=== PATIENT | male | born 1940 | race Caucasian/White ===

== ENCOUNTER 2022-07-11 06:51 | Emergency (ER) | payer MEDICARE, SELFPAY ==
[2022-07-11] VITALS (21 sets, daily range): BP systolic 145–207; BP diastolic 70–135; PULSE 61–81; RESP 13–24; TEMP 36.6; O2SAT 88–100; BMI 25.1
--- NOTE | 2022-07-11 07:15 | ED_ITS ---
HPI - Head Injury General Chief complaint: Head Injury Stated complaint: FALL, LEFT ELBOW INJURY Time Seen by Provider: 07/11/22 07:15 Source: patient and caregiver Mode of arrival: Wheelchair Limitations: no limitations History of Present Illness HPI Narrative: Patient brought in By daughter to the emergency department With complaint of fall. Daughter states the patient got up last night to urinate and had a cramp in the left thigh to fall. He hit his head did not have loss of consciousness. He was weak so she helped him get up. Complained of pain to the left elbow.The patient's takes Plavix. He complains of headache And right base of the skull neck pain. Denies any visual disturbance nausea, vomiting. His very hard of hearing. Denies any syncope or seizure. Denies any neck pain, paresthesias, or weakness. He is able to move his extremities. She noted some swelling to the left elbow and was concerned about that too. Patient denies any chest pain, shortness of breath. Denies any nausea, vomiting, diarrhea, constipation, abdominal pain. He denies any leg pain or hip pain and he was able to walk into the emergency department. Related Data Home Medications Medication Instructions Recorded Confirmed atorvastatin 80 mg tablet 80 mg PO QDAY 07/11/22 07/11/22 clopidogrel 75 mg tablet 75 mg PO QDAY 07/11/22 07/11/22 lisinopril 20 mg tablet 20 mg PO QDAY 07/11/22 07/11/22 metoprolol succinate 25 mg 25 mg PO Q12H 07/11/22 07/11/22 tablet,extended release 24 hr Allergies Allergy/AdvReac Type Severity Reaction Status Date / Time No Known Drug Allergies Allergy Verified 07/11/22 07:07 Review of Systems ROS Narrative ROS: Unless otherwise stated in this report the patient's positive and negative responses for review of systems for constitutional, eyes, ENT, cardiovascular, respiratory, gastrointestinal, neurological, , musculoskeletal and integument systems and related systems to the presenting problem are either stated in the history of present illness or were not pertinent or were negative for the symptoms and/or complaints related to the presenting medical problem. [facility] Medical History (Updated 07/11/22 @ 08:49 by Samantha Lowe MD) Exam Narrative Exam Narrative: Nurses notes and vital signs reviewed and patient is not hypoxic. General: Elderly, frail, chronically ill, nontoxic, and in no apparent distress. Skin: Warm, dry, no pallor noted. No Rash Head: Normocephalic, Left frontal contusion and abrasion noted. There are no step-offs. Neck: Supple, C2-C3 tenderness at midline, no Step-offs. Eye: Pupils are equal, round and EOMI. No scleral icterus. Ears, Nose, Mouth, and Throat: TM clear, no hemotympanum, bilateral Cerumen impaction. no posterior oropharynx erythema or nasal mucosal hypertrophy, uvula is mid-line Oral mucosa is moist Cardiovascular: Regular Rate and Rhythm without murmur, gallop or rub. Respiratory: No accessory muscle use or respiratory distress. Lungs are clear to auscultation, no wheezing, rales or rhonchi Chest Wall: no tenderness Back: No midline thoracic or lumbar vertebral tenderness. No CVA tenderness Musculoskeletal: Left elbow with golf ball size bursitis. There is an abrasion medially to it and an abrasion to the distal forearm. Radial pulses +2, capillary refill is brisk. Normal sensation to the thumb, middle finger and pinky.normal ROM, no calf or popliteal tenderness, no lower extremity edema/swelling GI: Abdomen is soft, non-distended. Normal bowel sounds. No tenderness to palpation. No rebound, guarding, or rigidity noted. Neurological: A&O x4. No cranial nerve dysfunction observed. No truncal ataxia. Moves all extremities. Sensation intact. Psychiatric: Cooperative. Constitutional Vital Signs - 24 hr 07/11/22 07:01 07/11/22 07:12 07/11/22 08:28 Temperature 97.9 F Pulse Rate Pulse Rate [Monitor] 72 Respiratory Rate 18 Blood Pressure Blood Pressure [Left Arm] 166/105 H Pulse Oximetry 98 98 99 Oxygen Delivery Method Room Air Room Air Room Air 07/11/22 07:10 07/11/22 07:16 07/11/22 08:00 Temperature Pulse Rate 69 61 61 Pulse Rate [Monitor] Respiratory Rate 18 22 15 Blood Pressure 157/97 H 157/70 H 181/90 H Blood Pressure [Left Arm] Pulse Oximetry 100 99 99 Oxygen Delivery Method 07/11/22 08:30 07/11/22 08:45 07/11/22 09:02 Temperature Pulse Rate 64 68 64 Pulse Rate [Monitor] Respiratory Rate 16 15 13 Blood Pressure 168/94 H 150/116 H Blood Pressure [Left Arm] Pulse Oximetry 99 98 99 Oxygen Delivery Method 07/11/22 09:10 07/11/22 09:15 07/11/22 09:16 Temperature Pulse Rate 63 70 74 Pulse Rate [Monitor] Respiratory Rate 20 22 15 Blood Pressure 207/104 H Blood Pressure [Left Arm] Pulse Oximetry 100 88 L 93 L Oxygen Delivery Method 07/11/22 09:31 07/11/22 09:47 07/11/22 09:50 Temperature Pulse Rate 74 76 77 Pulse Rate [Monitor] Respiratory Rate 18 22 23 Blood Pressure 161/110 H Blood Pressure [Left Arm] Pulse Oximetry Oxygen Delivery Method 07/11/22 10:00 07/11/22 10:01 07/11/22 10:17 Temperature Pulse Rate 73 74 73 Pulse Rate [Monitor] Respiratory Rate 20 17 21 Blood Pressure 169/135 H Blood Pressure [Left Arm] Pulse Oximetry Oxygen Delivery Method 07/11/22 10:20 07/11/22 10:30 07/11/22 10:31 Temperature Pulse Rate 81 74 81 Pulse Rate [Monitor] Respiratory Rate 16 24 23 Blood Pressure 145/116 H Blood Pressure [Left Arm] Pulse Oximetry Oxygen Delivery Method Course Vital Signs Vital signs: Vital Signs Temperature 97.9 F 07/11/22 07:01 Pulse Rate 72 07/11/22 07:01 Respiratory Rate 18 07/11/22 07:01 Blood Pressure 166/105 H 07/11/22 07:01 Pulse Oximetry 98 07/11/22 07:01 Oxygen Delivery Method Room Air 07/11/22 07:01 Temperature 97.9 F 07/11/22 07:01 Pulse Rate 81 07/11/22 10:31 Respiratory Rate 23 07/11/22 10:31 Blood Pressure 145/116 H 07/11/22 10:31 Pulse Oximetry 93 L 07/11/22 09:16 Oxygen Delivery Method Room Air 07/11/22 08:28 MDM - Head Injury MDM Narrative Medical decision making narrative: pt was placed on a cervical collar. Patient was discussed with radiologist who advised the patient has an anterior arch C1 fracture nondisplaced. CT scan of the brain . Patient was discussed with Dr. Dong the neurosurgeon leadership development consultant her [facility] who advised he can see the patient as consult. The patient was discussed with Dr. Root who has accepted the patient in transfer. Labs were done and reviewed. Differential Diagnosis Differential diagnosis: Likely concussion without loss of consciousness, epidural hematoma, closed head injury and subdural hematoma Medical Records Attestation: I reviewed the patient's medical records. Lab Data Attestation: I reviewed the patient's lab results. Labs: Lab Results 07/11/22 07/11/22 Range/Units 08:54 09:25 WBC 4.7 (4.0-11.0) 10^3/uL RBC 3.87 L (4.70-6.10) 10^6/uL Hgb 12.2 L (14.0-18.0) g/dL Hct 35.4 L (42.0-54.0) % MCV 91.5 (80.0-94.0) fL MCH 31.5 (25.9-34.0) pg MCHC 34.5 (29.9-35.2) g/dL RDW 14.6 (11.0-15.0) % Plt Count 80 L (150-450) 10^3/uL MPV 10.5 (9.5-13.5) fL Neut % (Auto) 70.8 (43.0-75.0) % Lymph % (Auto) 16.3 L (20.5-60.0) % [place] % (Auto) 10.6 (1.7-12.0) % Eos % (Auto) 1.5 (0.9-7.0) % Baso % (Auto) 0.4 (0.2-2.0) % Neut # (Auto) 3.3 (1.4-6.5) 10^3/uL Lymph # (Auto) 0.8 L (1.2-3.8) 10^3/uL [place] # (Auto) 0.5 (0.3-0.8) 10^3/uL Eos # (Auto) 0.1 (0.0-0.7) 10^3/uL Baso # (Auto) 0.0 (0.0-0.1) 10^3/uL PT 12.1 H (9.0-11.6) sec INR 1.15 Sodium 126 L (136-145) mmol/L Potassium 4.3 (3.5-5.1) mmol/L Chloride 92 L (98-107) mmol/L Carbon Dioxide 24.8 (21.0-32.0) mmol/L Anion Gap 13.5 BUN 11.0 (7.0-18.0) mg/dL Creatinine 0.78 (0.70-1.30) mg/dL Est GFR ( Amer) >60 (>=60) Est GFR (Non-Af Amer) >60 (>=60) BUN/Creatinine Ratio 14.1 Glucose 89 (74-106) mg/dL Calcium 8.5 (8.5-10.1) mg/dL Total Bilirubin 1.2 H (0.2-1.0) mg/dL AST 29 (15-37) U/L ALT 36 (16-63) U/L Alkaline Phosphatase 51 (46-116) U/L Total Protein 7.0 (6.4-8.2) g/dL Albumin 3.9 (3.4-5.0) g/dL Globulin 3.1 g/dL Albumin/Globulin Ratio 1.3 Urine Color Lt. yellow (YELLOW) Urine Clarity Clear (CLEAR) Urine pH 7.0 (5.0-9.0) Ur Specific [place] 1.010 (1.005-1.025) Urine Protein Negative (NEG/TRACE) mg/dL Urine Glucose (UA) Negative (NEGATIVE) mg/dL Urine Ketones Negative (NEGATIVE) mg/dL Urine Occult Blood Negative (NEGATIVE) Urine Nitrite Negative (NEGATIVE) Urine Bilirubin Negative (NEGATIVE) Urine Urobilinogen 0.2 (0.2-1.0) EU/dL Ur Leukocyte Esterase Negative (NEGATIVE) ECG Data Attestation: I personally reviewed and interpreted this ECG as follows: Critical Care Time Critical Care Time Attestation: Critical Care Time: 30 minutes, critical care time is separate from any procedures that are performed. The following was considered in the determination of critical care but not limited to the level medical decision-making, intensive cardiac and/or respiratory monitor, frequent vital sign monitoring, evaluation of laboratory studies, evaluation of a radiographic studies, oxygen monitoring and constant monitoring. Discharge Plan Discharge Chief Complaint: Head Injury Clinical Impression: Closed head injury, Bursitis of left elbow, C1 cervical fracture, Abrasion of elbow, left Patient Disposition: [facility] Time of Disposition Decision: 08:48 Discharge Location: [facility] Condition: Good Mode of Transportation: EMS
--- NOTE | 2022-07-11 07:20 | CT_ITS ---
The [address] [address] Patient Name: JOVANNY EVANS MRN: [id number] date: 1940 Sex: M Assigned Patient Location: ER Current Patient Location: ER Accession/Order Number: [id number] Exam Date: 07/11/2022 07:30 Report Date: 07/11/2022 08:27 At the request of: NIALL LOWE Procedure: CT cervical spine wo con EXAMINATION: CT cervical spine wo con HISTORY: PAIN ; patient fell striking head, neck pain COMPARISON: No relevant comparison available. TECHNIQUE: Axial, Coronal, and Sagittal images were created without IV contrast. Dose reduction techniques were achieved by using automated exposure control and/or adjustment of mA and/or kV according to patient size and/or use of iterative reconstruction technique. FINDINGS: VERTEBRAL BODIES: Nondisplaced fracture of anterior arch of C1 in 2 places. Mild compression fractures and advanced degenerative endplate changes of C4, C5, and C6 which appear to be chronic. FACET JOINTS: Multilevel marked degenerative facet arthropathy resulting in bone encroachment on the central canal and foramen. No disruption or abnormal widening. DISCS: Complete loss of disc space at C4-5 and C5-6, lung with large posterior disc-osteophyte complexes causing marked central canal and foramen narrowing. CENTRAL CANAL: Suspect mild hemorrhage deep to the longitudinal ligament posterior to the C1-2 junction. No central canal narrowing or intrathecal hemorrhage. PARASPINAL AREA: No visible mass. IMPRESSION: 1. Nondisplaced fractures of the anterior arch of C1. 2. 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 Findings discussed with Dr. Lowe in ED via telephone prior to dictation. Electronically authenticated by: JOSSIE WALKER Date: 07/11/2022 08:27
--- NOTE | 2022-07-11 07:20 | CT_ITS ---
The [address] [address] Patient Name: JOVANNY EVANS MRN: [id number] date: 1940 Sex: M Assigned Patient Location: ER Current Patient Location: ER Accession/Order Number: [id number] Exam Date: 07/11/2022 07:30 Report Date: 07/11/2022 08:13 At the request of: NIALL DAVIS Procedure: CT head/brain wo con EXAMINATION: CT head/brain wo con HISTORY: PAIN COMPARISON: No relevant comparison available. TECHNIQUE: Axial CT images were obtained without IV contrast. Dose reduction techniques were achieved by using automated exposure control and/or adjustment of mA and/or kV according to patient size and/or use of iterative reconstruction technique. FINDINGS: BRAIN: No edema, hemorrhage, mass, acute infarction, or inappropriate atrophy. CSF SPACES: No hydrocephalus, subarachnoid hemorrhage, or mass. Appropriate for age. SKULL: No fracture, mass, or other significant visible lesion. SINUSES: No significant mucosal thickening or fluid on the limited views. ORBITS: No appreciable abnormality on the limited views. OTHER: Scalp hematoma overlying left parietal bone 0.8 cm in thickness by 8.0 x 8.0 cm. IMPRESSION: 1. No intracranial hemorrhage or appreciable acute abnormality. 2. Age consistent chronic changes. 3. Large scalp hematoma overlying left parietal bone. No fracture of the calvarium. Electronically authenticated by: JOSSIE WALKER Date: 07/11/2022 08:13
--- NOTE | 2022-07-11 07:23 | XR_ITS ---
The [address] [address] Patient Name: JOVANNY EVANS MRN: [id number] date: 1940 Sex: M Assigned Patient Location: ER Current Patient Location: ER Accession/Order Number: [id number] Exam Date: 07/11/2022 07:40 Report Date: 07/11/2022 08:30 At the request of: NIALL DAVIS Procedure: XR forearm LT 2V PROCEDURE: XR forearm LT 2V HISTORY: PAIN ; elbow pain after falling COMPARISON: None. FINDINGS: BONES:No acute fracture or dislocation. Degenerative change of the wrist and elbow joints. SOFT TISSUES:Prominent soft tissue swelling posterior to the olecranon suggestive of bursitis. Degenerative enthesopathic spurring at the flexor and extensor tendons insertion into the humerus. EFFUSION:None visible. OTHER: Negative. IMPRESSION: 1. No acute bone abnormality. 2. Suspect olecranon bursitis. Electronically authenticated by: JOSSIE WALKER Date: 07/11/2022 08:30
--- NOTE | 2022-07-11 08:26 | PC.NURSE ---
pt placed in ccollar
--- NOTE | 2022-07-11 08:36 | ECG_ITS ---
The [facility] Test Date: 2022-07-11 Pat Name: Jose Enrique Woodward Department: Room: - Gender: Male Animal Warden: : 1940 Requested By: [id number] Order Number: [id number] Reading MD: JERMAN QUINN Measurements Intervals [place] Rate: 66 P: -[id number] NM: -[id number] QRS: 79 QRSD: 92 T: 22 QT: 414 QTc: 428 Interpretive Statements 1250 Atrial flutter 9140 abnormal rhythm ECG No previous ECG available for comparison Electronically Signed On 07-12-2022 6:53:41 EDT by JERMAN QUINN
[2022-07-11] MEDS: 0.9 % SODIUM CHLORIDE 1,000 ML 100 ML IV (08:46)
[2022-07-11 09:08] LABS: Basophils Percent Auto 0.4 % (0.2-2.0); Eosinophils Absolute Auto 0.1 10^3/uL (0.0-0.7); Eosinophils Percent Auto 1.5 % (0.9-7.0); Hematocrit 35.4 % (42.0-54.0); Hemoglobin 12.2 g/dL (14.0-18.0); Immature Granulocytes Abs Auto 0.02 10^3/uL (0.00-0.03); Immature Granulocytes Pct Auto 0.4 % (0.0-0.5); Lymphocytes Absolute Auto 0.8 10^3/uL (1.2-3.8); Lymphocytes Percent Auto 16.3 % (20.5-60.0); Mean Corpuscular HGB Conc 34.5 g/dL (29.9-35.2); Mean Corpuscular Hemoglobin 31.5 pg (25.9-34.0); Mean Corpuscular Volume 91.5 fL (80.0-94.0); Mean Platelet Volume 10.5 fL (9.5-13.5); Monocytes Absolute Auto 0.5 10^3/uL (0.3-0.8); Monocytes Percent Auto 10.6 % (1.7-12.0); Neutrophils Absolute Auto 3.3 10^3/uL (1.4-6.5); Neutrophils Percent Auto 70.8 % (43.0-75.0); Platelet Count 80 10^3/uL (150-450); Red Blood Count 3.87 10^6/uL (4.70-6.10); Red Cell Distribution Width 14.6 % (11.0-15.0); White Blood Count 4.7 10^3/uL (4.0-11.0)
[2022-07-11 09:20] LABS: Alanine Aminotransferase 36 U/L (16-63); Albumin Globulin Ratio 1.3; Albumin Level 3.9 g/dL (3.4-5.0); Alkaline Phosphatase 51 U/L (46-116); Anion Gap 13.5; Aspartate Amino Transferase 29 U/L (15-37); BUN Creatinine Ratio 14.1; Bilirubin Total 1.2 mg/dL (0.2-1.0); Calcium 8.5 mg/dL (8.5-10.1); Carbon Dioxide 24.8 mmol/L (21.0-32.0); Chloride 92 mmol/L (98-107); Estimated GFR (African America >60 (>=60); Estimated GFR (Non-African Ame >60 (>=60); Globulin 3.1 g/dL; Glucose 89 mg/dL (74-106); Potassium 4.3 mmol/L (3.5-5.1); Sodium 126 mmol/L (136-145)
[2022-07-11 09:37] LABS: INR 1.15; Prothrombin Time 12.1 sec (9.0-11.6)
[2022-07-11 09:44] LABS: Bilirubin Urine NEGATIVE (NEGATIVE); Blood Urine NEGATIVE (NEGATIVE); Clarity Urine CLEAR (CLEAR); Color Urine LT. YELLOW (YELLOW); Glucose Urine UA NEGATIVE (NEGATIVE); Ketones Urine NEGATIVE (NEGATIVE); Leukocyte Esterase Urine NEGATIVE (NEGATIVE); Nitrite Urine NEGATIVE (NEGATIVE); Protein Urine NEGATIVE (NEG/TRACE); Urobilinogen Urine 0.2 EU/dL (0.2-1.0)
--- NOTE | 2022-07-11 10:04 | PC.NURSE ---
report called [id number] [place] [id number]
--- NOTE | 2022-07-11 10:12 | XR_ITS ---
The [address] [address] Patient Name: JOVANNY EVANS MRN: [id number] date: 1940 Sex: M Assigned Patient Location: ER Current Patient Location: ER Accession/Order Number: [id number] Exam Date: 07/11/2022 10:23 Report Date: 07/11/2022 10:47 At the request of: NIALL DAVIS Procedure: XR chest 1V EXAMINATION: XR chest 1V HISTORY: preop , shortness breath COMPARISON: XR chest 05/19/2020 FINDINGS: LUNGS: Mild haziness throughout the underexpanded lungs, slightly greater within lateral right lung base. VASCULATURE: No increased pulmonary vasculature. PLEURA: No pneumothorax, effusion, or pleural thickening. CARDIAC: No cardiomegaly or cardiac silhouette abnormality. MEDIASTINUM: Prior sternotomy. No abnormal widening. BONES: No fracture or visible bone lesion. OTHER: Negative. IMPRESSION: 1. Mild bilateral atelectasis versus infiltrates; not significantly changed. Electronically authenticated by: JOSSIE WALKER Date: 07/11/2022 10:47
--- NOTE | 2022-07-11 10:22 | PC.NURSE ---
chest xray completed
--- NOTE | 2022-07-11 10:52 | PC.NURSE ---
report given to [facility] and [place] [facility] [place] [id number] ccollar remained intact
== END 2022-07-11 10:54 | disposition short-term general hospital (02) ==
PROVIDERS: Emergency Provider Emergency Medicine; PCP Internal Medicine
DX: S12.000A Unspecified displaced fracture of first cervical vertebra, initial encounter for closed fracture (principal); S09.8XXA Other specified injuries of head, initial encounter; M70.32 Other bursitis of elbow, left elbow; S50.312A Abrasion of left elbow, initial encounter; W19.XXXA Unspecified fall, initial encounter; Z79.02 Long term (current) use of antithrombotics/antiplatelets; Z79.899 Other long term (current) drug therapy
CPT/HCPCS: 36415; 70450; 71045; 72125; 73090; 80053; 81003; 85025; 85610; 93005; 99285

== ENCOUNTER 2022-07-16 17:45 | Inpatient (IN) | payer MEDICARE, SELFPAY ==
[2022-07-16] VITALS (13 sets, daily range): BP systolic 99–162; BP diastolic 57–92; PULSE 77–103; RESP 14–38; TEMP 37.4–38.2; O2SAT 86–99; BMI 20.4
--- NOTE | 2022-07-16 18:18 | ECG_ITS ---
The [facility] Test Date: 2022-07-16 Pat Name: Jose Enrique Woodward Department: Room: [facility] Gender: Male Research Administrator: : 1940 Requested By: [id number] Order Number: [id number] Reading MD: MAGI STOCK Measurements Intervals [place] Rate: 80 P: -[id number] HI: -[id number] QRS: 79 QRSD: 90 T: 25 QT: 378 QTc: 414 Interpretive Statements ATRIAL FLUTTER, A-RATE [address] depression, probably digitalis effect 9150 abnormal ECG Compared to ECG 07/11/2022 07:08:06 ST (T wave) deviation now present Atrial flutter no longer present Electronically Signed On 07-18-2022 6:22:08 EDT by MAGI STOCK
--- NOTE | 2022-07-16 18:18 | XR_ITS ---
[place] [id number] Patient Name: JOVANNY EVANS MRN: [id number] date: 1940 Sex: M Assigned Patient Location: ED.MAIN Current Patient Location: ER Accession/Order Number: [id number] Exam Date: 07/16/2022 19:10 Report Date: 07/16/2022 20:02 At the request of: NIALL DAVIS Procedure: XR chest 1V EXAM: XR chest 1V HISTORY: chest pain COMPARISON: 07/11/2022 TECHNIQUE: Frontal view of the chest. FINDINGS: The right lung apex is obscured by the patient's chin. Mild diffuse bilateral interstitial prominence which may represent edema and/or infiltrates. No large pleural effusions. Cardiomegaly. Median sternotomy. Thoracic spine spondylosis. IMPRESSION: Mild bilateral interstitial prominence which may represent edema or infiltrates. Cardiomegaly. Electronically authenticated by: HELADIO LINARES Date: 07/16/2022 20:02
--- NOTE | 2022-07-16 18:20 | ED.CHESTPAI1 ---
Documented by User: Samantha Lowe MD 07/17/22 12:02 HPI - Chest Pain General Chief Complaint: Chest Pain Stated Complaint: CHEST PAIN Time Seen by Provider: 07/16/22 17:52 Source: family Source comment: daughter Mode of arrival: Wheelchair Limitations: altered mental status Limitations comment: INCREASED CONFUSION AND [id number] FOLLOWING DIRECTION History of Present Illness HPI narrative: Patient brought into the emergency department with a complaint of confusion. Patient fell Monday was seen in the emergency department and found to have a C1 fracture. He was transferred to [facility]. While he was at [facility] he was also hyponatremic. Patient was discharged from [facility] yesterday family states ever since he was in the hospital he is mentation has not been what he normally was however he is becoming more confused as the day goes on today. He was weak and he was not able to get out of the swing where he was living at. He has not had any trauma. He complained to the family that he was having right-sided chest pain. They found him to have a fever so they brought him in to be checked for a urinary tract infection or pneumonia.The patient has not been given anything other than Tylenol for pain at home. Family states they have not filled in the [place] because it makes him nauseated. He states he has not been complaining of any neck pain. Patient has a c-collar. Related Data Home Medications Medication Instructions Recorded Confirmed atorvastatin 80 mg tablet 80 mg PO QDAY 07/11/22 07/16/22 clopidogrel 75 mg tablet 75 mg PO QDAY 07/11/22 07/16/22 metoprolol succinate 25 mg 25 mg PO Q12H 07/11/22 07/16/22 tablet,extended release 24 hr acetaminophen 325 mg tablet (Aphen) 650 mg PO Q6H PRN fever or pain 07/16/22 07/16/22 amlodipine 5 mg tablet 5 mg PO QDAY 07/16/22 07/16/22 aspirin 81 mg tablet,delayed 81 mg PO DAILY 07/16/22 07/16/22 release (Adult Low Dose Aspirin) hydrocodone 5 mg-acetaminophen 325 1 tab PO Q6H PRN pain 07/16/22 07/16/22 mg tablet lidocaine 5 % topical patch See Rx Instructions topical 07/16/22 07/16/22 (Lidoderm) .COMPLEX multivitamin (Daily Multi-Vitamin 1 tab PO DAILY 07/16/22 07/16/22 tablet) lisinopril 20 mg tablet 20 mg PO DAILY 07/17/22 07/17/22 Allergies Allergy/AdvReac Type Severity Reaction Status Date / Time No Known Drug Allergies Allergy Verified 07/16/22 17:52 Review of Systems ROS Status of ROS 10 or more systems reviewed and unremarkable except as noted in history and below [facility] Medical History (Updated 07/17/22 @ 05:07 by Denise Riggs MD) Surgical History (Updated 07/17/22 @ 00:14 by Georgina Crook) Social History (Updated 07/17/22 @ 00:17 by Georgina Crook) Within the past year, how often did you have a drink containing alcohol: never Score interpretation: A score less than 4 is consistent with normal alcohol consumption. Smoking status: Former smoker Non-prescribed substance use: denies use Previous occupational history: retired Known occupational exposures/hazards: No Highest level of school completed/degree received: high school graduate Are you now , , , , never or living with a partner: don't know In a typical week, how many times do you talk on the telephone with family, friends, or neighbors: 3 or more times per week How often do you get together with friends or relatives: 3 or more times per week How often do you attend islam or adventism services: 4 or more times per year Do you belong to any clubs or organizations such as islam groups unions, fraternal or athletic groups, or school groups: no Total score: 2 Score interpretation: A score of greater than or equal to 2 indicates the lowest level of social isolation. Little interest or pleasure in doing things: not at all Feeling down, depressed, or hopeless: not at all Feel stressed/tense/nervous/anxious/difficulty sleeping: not at all Due to disability, difficulty making decisions: Yes Do you think of yourself as: straight/heterosexual Gender Identity: male Exam Narrative Exam Narrative: Nurses notes and vital signs reviewed and patient is not hypoxic. General: Nontoxic, Early, frail, chronically ill,and in no apparent distress. Skin: Warm, dry, no pallor noted. No Rash Head: Normocephalic, left parietal scab noted. Neck: Supple, c collar in place. Eye: Pupils are equal, round and EOMI. No scleral icterus. Ears, Nose, Mouth, and Throat: TM clear, no posterior oropharynx erythema or nasal mucosal hypertrophy, uvula is mid-line Oral mucosa is dry Cardiovascular: Regularly irregular 77 bpm without murmur, gallop or rub. Respiratory: No accessory muscle use or respiratory distress. Lungs occasional rhonchi Chest Wall: no tenderness Back: No midline thoracic or lumbar vertebral tenderness. No CVA tenderness Musculoskeletal: normal ROM, no calf or popliteal tenderness, no lower extremity edema/swelling GI: Abdomen is soft, non-distended. Normal bowel sounds. No masses appreciated.No tenderness to palpation. No rebound, guarding, or rigidity noted. Neurological: A&O x2. No cranial nerve dysfunction observed. Moves all extremities. Psychiatric: Cooperative and interactive. Constitutional Vital Signs - 24 hr 07/16/22 17:52 07/16/22 18:42 07/16/22 17:53 Temperature 99.3 F 100.8 F H Pulse Rate 77 Pulse Rate [Monitor] 78 Respiratory Rate 18 18 Blood Pressure 122/72 H Blood Pressure [Left Arm] 122/72 H Pulse Oximetry 96 98 Oxygen Delivery Method Room Air 07/16/22 17:53 07/16/22 17:53 07/16/22 19:35 Temperature Pulse Rate 96 H 94 H Pulse Rate [Monitor] Respiratory Rate 14 23 Blood Pressure 122/72 H 148/76 H Blood Pressure [Left Arm] Pulse Oximetry 95 92 L 99 Oxygen Delivery Method 07/16/22 19:35 07/16/22 20:00 07/16/22 20:30 Temperature Pulse Rate 93 H 102 H 91 H Pulse Rate [Monitor] Respiratory Rate 19 27 H 18 Blood Pressure 148/76 H 153/86 H 146/72 H Blood Pressure [Left Arm] Pulse Oximetry 93 L 98 98 Oxygen Delivery Method 07/16/22 20:30 07/16/22 21:01 07/16/22 21:30 Temperature Pulse Rate 102 H 103 H 94 H Pulse Rate [Monitor] Respiratory Rate 38 H 21 22 Blood Pressure 146/72 H 160/75 H 162/83 H Blood Pressure [Left Arm] Pulse Oximetry 98 97 86 L Oxygen Delivery Method 07/16/22 22:02 07/16/22 22:02 07/16/22 22:31 Temperature Pulse Rate 101 H 101 H 91 H Pulse Rate [Monitor] Respiratory Rate 19 26 H 18 Blood Pressure 154/92 H 154/92 H 125/57 H Blood Pressure [Left Arm] Pulse Oximetry 94 L 94 L 86 L Oxygen Delivery Method 07/16/22 23:00 07/16/22 23:30 Temperature Pulse Rate 85 100 H Pulse Rate [Monitor] Respiratory Rate 15 21 Blood Pressure 99/57 L 127/59 H Blood Pressure [Left Arm] Pulse Oximetry Oxygen Delivery Method Course Vital Signs Vital signs: Vital Signs Temperature 99.3 F 07/16/22 17:52 Pulse Rate 78 07/16/22 17:52 Respiratory Rate 18 07/16/22 17:52 Blood Pressure 122/72 H 07/16/22 17:52 Pulse Oximetry 96 07/16/22 17:52 Oxygen Delivery Method Room Air 07/16/22 17:52 Temperature 102.3 F H 07/17/22 08:41 Pulse Rate 97 H 07/17/22 06:00 Respiratory Rate 20 07/17/22 06:00 Blood Pressure 134/65 H 07/17/22 06:00 Pulse Oximetry 95 07/17/22 06:00 Oxygen Delivery Method Room Air 07/17/22 06:00 MDM - Chest Pain MDM Narrative Medical decision making narrative: Lab and radiologic studies were ordered and old records from [facility] were ordered. Patient will be signed out to Dr. Joseph at the end of my shift awaiting old results, reevaluation, and disposition. Patient is given 1 L normal saline in the meantime. Lab Data Labs: Lab Results 07/16/22 07/16/22 07/16/22 Range/Units 18:05 18:15 19:50 WBC 4.7 (4.0-11.0) 10^3/uL RBC 3.65 L (4.70-6.10) 10^6/uL Hgb 11.7 L (14.0-18.0) g/dL Hct 33.4 L (42.0-54.0) % MCV 91.5 (80.0-94.0) fL MCH 32.1 (25.9-34.0) pg MCHC 35.0 (29.9-35.2) g/dL RDW 15.2 H (11.0-15.0) % Plt Count 102 L (150-450) 10^3/uL MPV 10.4 (9.5-13.5) fL Neut % (Auto) 73.7 (43.0-75.0) % Lymph % (Auto) 9.7 L (20.5-60.0) % Bull[place] % (Auto) 15.0 H (1.7-12.0) % Eos % (Auto) 0.8 L (0.9-7.0) % Baso % (Auto) 0.4 (0.2-2.0) % Neut # (Auto) 3.5 (1.4-6.5) 10^3/uL Lymph # (Auto) 0.5 L (1.2-3.8) 10^3/uL [place] # (Auto) 0.7 (0.3-0.8) 10^3/uL Eos # (Auto) 0.0 (0.0-0.7) 10^3/uL Baso # (Auto) 0.0 (0.0-0.1) 10^3/uL Abs Immat Gran (auto) 0.02 (0.00-0.03) 10^3/uL Imm/Tot Granulo (auto) 0.4 (0.0-0.5) % PT 12.0 H (9.0-11.6) sec INR 1.14 APTT 27.6 (22.3-36.2) sec Sodium 125 L (136-145) mmol/L Potassium 4.8 (3.5-5.1) mmol/L Chloride 93 L (98-107) mmol/L Carbon Dioxide 24.8 (21.0-32.0) mmol/L Anion Gap 12.0 BUN 16.0 (7.0-18.0) mg/dL Creatinine 0.89 (0.70-1.30) mg/dL Est GFR ( Amer) >60 (>=60) Est GFR (Non-Af Amer) >60 (>=60) BUN/Creatinine Ratio 18.0 Glucose 129 H (74-106) mg/dL Calcium 8.7 (8.5-10.1) mg/dL Magnesium 1.9 (1.8-2.4) mg/dL Total Bilirubin 1.2 H (0.2-1.0) mg/dL AST 28 (15-37) U/L ALT 30 (16-63) U/L Alkaline Phosphatase 55 (46-116) U/L Troponin I High Sens 7.0 (4.0-76.1) pg/mL C-Reactive Protein 2.0 H (<=1.0) mg/dL NT-Pro-B Natriuret Pep 1523.0 (<=1800.0) pg/mL Total Protein 7.3 (6.4-8.2) g/dL Albumin 4.0 (3.4-5.0) g/dL Globulin 3.3 g/dL Albumin/Globulin Ratio 1.2 Urine Color Yellow (YELLOW) Urine Clarity Clear (CLEAR) Urine pH 7.5 (5.0-9.0) Ur Specific [place] 1.010 (1.005-1.025) Urine Protein Negative (NEG/TRACE) mg/dL Urine Glucose (UA) Negative (NEGATIVE) mg/dL Urine Ketones Negative (NEGATIVE) mg/dL Urine Occult Blood Negative (NEGATIVE) Urine Nitrite Negative (NEGATIVE) Urine Bilirubin Negative (NEGATIVE) Urine Urobilinogen 0.2 (0.2-1.0) EU/dL Ur Leukocyte Esterase Negative (NEGATIVE) Ur Random Sodium 132 H (30-90) mmol/L Adenovirus (PCR) Not detected (NOT DETECTE) C. pneumoniae DNA (PCR) Not detected (NOT DETECTE) Coronavirus Type OC43 Not detected (NOT DETECTE) Coronavirus Type HKU1 Not detected (NOT DETECTE) Coronavirus Type 229E Not detected (NOT DETECTE) Coronavirus Type NL63 Not detected (NOT DETECTE) Human Metapneumovir PCR Not detected (NOT DETECTE) M. pneumoniae (PCR) Not detected (NOT DETECTE) Parainfluenza PCR Not detected (NOT DETECTE) Parainfluenza 2 (PCR) Not detected (NOT DETECTE) Parainfluenza 3 (PCR) Not detected (NOT DETECTE) Parainfluenza 4 (PCR) Not detected (NOT DETECTE) RSV (RT-PCR) Not detected (NOT DETECTE) Entero/Rhino (PCR) Not detected (NOT DETECTE) SARS-CoV-2 (PCR) Detected A (NOT DETECTE) Bordetella pertussis (PCR) Not detected (NOT DETECTE) B parapertussis DNA PCR Not detected (NOT DETECTE) Influenza Type A (PCR) Not detected (NOT DETECTE) Influenza Type B (PCR) Not detected (NOT DETECTE) Discharge Plan Discharge Chief Complaint: Chest Pain Clinical Impression: AMS (altered mental status), Pneumonia Patient Disposition: Admitted As Inpatient Time of Disposition Decision: 23:45 Condition: Fair Discharge Date/Time: 07/16/22 23:45 Documented by User: Denise Riggs MD 07/17/22 05:07 HPI - Chest Pain General Chief Complaint: Chest Pain Stated Complaint: CHEST PAIN Time Seen by Provider: 07/16/22 17:52 Source comment: daughter [place] Related Data Home Medications Medication Instructions Recorded Confirmed atorvastatin 80 mg tablet 80 mg PO QDAY 07/11/22 07/16/22 clopidogrel 75 mg tablet 75 mg PO QDAY 07/11/22 07/16/22 metoprolol succinate 25 mg 25 mg PO Q12H 07/11/22 07/16/22 tablet,extended release 24 hr acetaminophen 325 mg tablet (Aphen) 650 mg PO Q6H PRN fever or pain 07/16/22 07/16/22 amlodipine 5 mg tablet 5 mg PO QDAY 07/16/22 07/16/22 aspirin 81 mg tablet,delayed 81 mg PO DAILY 07/16/22 07/16/22 release (Adult Low Dose Aspirin) hydrocodone 5 mg-acetaminophen 325 1 tab PO Q6H PRN pain 07/16/22 07/16/22 mg tablet lidocaine 5 % topical patch See Rx Instructions topical 07/16/22 07/16/22 (Lidoderm) .COMPLEX multivitamin (Daily Multi-Vitamin 1 tab PO DAILY 07/16/22 07/16/22 tablet) lisinopril 20 mg tablet 20 mg PO DAILY 07/17/22 07/17/22 Allergies Allergy/AdvReac Type Severity Reaction Status Date / Time No Known Drug Allergies Allergy Verified 07/16/22 17:52 [facility] Medical History (Updated 07/17/22 @ 05:07 by Denise Riggs MD) Surgical History (Updated 07/17/22 @ 00:14 by Georgina Crook) Social History (Updated 07/17/22 @ 00:17 by Georgina Crook) Within the past year, how often did you have a drink containing alcohol: never Score interpretation: A score less than 4 is consistent with normal alcohol consumption. Smoking status: Former smoker Non-prescribed substance use: denies use Previous occupational history: retired Known occupational exposures/hazards: No Highest level of school completed/degree received: high school graduate Are you now , , , , never or living with a partner: don't know In a typical week, how many times do you talk on the telephone with family, friends, or neighbors: 3 or more times per week How often do you get together with friends or relatives: 3 or more times per week How often do you attend islam or adventism services: 4 or more times per year Do you belong to any clubs or organizations such as islam groups unions, [email or web address] or athletic groups, or school groups: no Total score: 2 Score interpretation: A score of greater than or equal to 2 indicates the lowest level of social isolation. Little interest or pleasure in doing things: not at all Feeling down, depressed, or hopeless: not at all Feel stressed/tense/nervous/anxious/difficulty sleeping: not at all Due to disability, difficulty making decisions: Yes Do you think of yourself as: straight/heterosexual Gender Identity: male Exam Constitutional Vital Signs - 24 hr 07/16/22 17:52 07/16/22 18:42 07/16/22 17:53 Temperature 99.3 F 100.8 F H Pulse Rate 77 Pulse Rate [Monitor] 78 Respiratory Rate 18 18 Blood Pressure 122/72 H Blood Pressure [Left Arm] 122/72 H Pulse Oximetry 96 98 Oxygen Delivery Method Room Air 07/16/22 17:53 07/16/22 17:53 07/16/22 19:35 Temperature Pulse Rate 96 H 94 H Pulse Rate [Monitor] Respiratory Rate 14 23 Blood Pressure 122/72 H 148/76 H Blood Pressure [Left Arm] Pulse Oximetry 95 92 L 99 Oxygen Delivery Method 07/16/22 19:35 07/16/22 20:00 07/16/22 20:30 Temperature Pulse Rate 93 H 102 H 91 H Pulse Rate [Monitor] Respiratory Rate 19 27 H 18 Blood Pressure 148/76 H 153/86 H 146/72 H Blood Pressure [Left Arm] Pulse Oximetry 93 L 98 98 Oxygen Delivery Method 07/16/22 20:30 07/16/22 21:01 07/16/22 21:30 Temperature Pulse Rate 102 H 103 H 94 H Pulse Rate [Monitor] Respiratory Rate 38 H 21 22 Blood Pressure 146/72 H 160/75 H 162/83 H Blood Pressure [Left Arm] Pulse Oximetry 98 97 86 L Oxygen Delivery Method 07/16/22 22:02 07/16/22 22:02 07/16/22 22:31 Temperature Pulse Rate 101 H 101 H 91 H Pulse Rate [Monitor] Respiratory Rate 19 26 H 18 Blood Pressure 154/92 H 154/92 H 125/57 H Blood Pressure [Left Arm] Pulse Oximetry 94 L 94 L 86 L Oxygen Delivery Method 07/16/22 23:00 07/16/22 23:30 Temperature Pulse Rate 85 100 H Pulse Rate [Monitor] Respiratory Rate 15 21 Blood Pressure 99/57 L 127/59 H Blood Pressure [Left Arm] Pulse Oximetry Oxygen Delivery Method Course Vital Signs Vital signs: Vital Signs Temperature 99.3 F 07/16/22 17:52 Pulse Rate 78 07/16/22 17:52 Respiratory Rate 18 07/16/22 17:52 Blood Pressure 122/72 H 07/16/22 17:52 Pulse Oximetry 96 07/16/22 17:52 Oxygen Delivery Method Room Air 07/16/22 17:52 Temperature 102.3 F H 07/17/22 08:41 Pulse Rate 97 H 07/17/22 06:00 Respiratory Rate 20 07/17/22 06:00 Blood Pressure 134/65 H 07/17/22 06:00 Pulse Oximetry 95 07/17/22 06:00 Oxygen Delivery Method Room Air 07/17/22 06:00 MDM - Chest Pain MDM Narrative Medical decision making narrative: Lab and radiologic studies were ordered and old records from [facility] were ordered. Patient will be signed out to Dr. Joseph at the end of my shift awaiting old results, reevaluation, and disposition. Patient is given 1 L normal saline in the meantime. Dr Riggs : the patient blood work shows no leukocytosis with a chest x-ray shows possible infiltrate bilaterally,and he also presented with confusion and cough which will correlate with possible pneumonia Respiratory panel is pending blood culture obtained and the patient had a ceftriaxone and azithromycin started He will be admitted for further evaluation of pneumonia The patient case was discussed with Dr. Livingston and he was admitted Lab Data Labs: Lab Results 07/16/22 07/16/22 07/16/22 Range/Units 18:05 18:15 19:50 WBC 4.7 (4.0-11.0) 10^3/uL RBC 3.65 L (4.70-6.10) 10^6/uL Hgb 11.7 L (14.0-18.0) g/dL Hct 33.4 L (42.0-54.0) % MCV 91.5 (80.0-94.0) fL MCH 32.1 (25.9-34.0) pg MCHC 35.0 (29.9-35.2) g/dL RDW 15.2 H (11.0-15.0) % Plt Count 102 L (150-450) 10^3/uL MPV 10.4 (9.5-13.5) fL Neut % (Auto) 73.7 (43.0-75.0) % Lymph % (Auto) 9.7 L (20.5-60.0) % [place] % (Auto) 15.0 H (1.7-12.0) % Eos % (Auto) 0.8 L (0.9-7.0) % Baso % (Auto) 0.4 (0.2-2.0) % Neut # (Auto) 3.5 (1.4-6.5) 10^3/uL Lymph # (Auto) 0.5 L (1.2-3.8) 10^3/uL [place] # (Auto) 0.7 (0.3-0.8) 10^3/uL Eos # (Auto) 0.0 (0.0-0.7) 10^3/uL Baso # (Auto) 0.0 (0.0-0.1) 10^3/uL Abs Immat Gran (auto) 0.02 (0.00-0.03) 10^3/uL Imm/Tot Granulo (auto) 0.4 (0.0-0.5) % PT 12.0 H (9.0-11.6) sec INR 1.14 APTT 27.6 (22.3-36.2) sec Sodium 125 L (136-145) mmol/L Potassium 4.8 (3.5-5.1) mmol/L Chloride 93 L (98-107) mmol/L Carbon Dioxide 24.8 (21.0-32.0) mmol/L Anion Gap 12.0 BUN 16.0 (7.0-18.0) mg/dL Creatinine 0.89 (0.70-1.30) mg/dL Est GFR ( Amer) >60 (>=60) Est GFR (Non-Af Amer) >60 (>=60) BUN/Creatinine Ratio 18.0 Glucose 129 H (74-106) mg/dL Calcium 8.7 (8.5-10.1) mg/dL Magnesium 1.9 (1.8-2.4) mg/dL Total Bilirubin 1.2 H (0.2-1.0) mg/dL AST 28 (15-37) U/L ALT 30 (16-63) U/L Alkaline Phosphatase 55 (46-116) U/L Troponin I High Sens 7.0 (4.0-76.1) pg/mL C-Reactive Protein 2.0 H (<=1.0) mg/dL NT-Pro-B Natriuret Pep 1523.0 (<=1800.0) pg/mL Total Protein 7.3 (6.4-8.2) g/dL Albumin 4.0 (3.4-5.0) g/dL Globulin 3.3 g/dL Albumin/Globulin Ratio 1.2 Urine Color Yellow (YELLOW) Urine Clarity Clear (CLEAR) Urine pH 7.5 (5.0-9.0) Ur Specific [place] 1.010 (1.005-1.025) Urine Protein Negative (NEG/TRACE) mg/dL Urine Glucose (UA) Negative (NEGATIVE) mg/dL Urine Ketones Negative (NEGATIVE) mg/dL Urine Occult Blood Negative (NEGATIVE) Urine Nitrite Negative (NEGATIVE) Urine Bilirubin Negative (NEGATIVE) Urine Urobilinogen 0.2 (0.2-1.0) EU/dL Ur Leukocyte Esterase Negative (NEGATIVE) Ur Random Sodium 132 H (30-90) mmol/L Adenovirus (PCR) Not detected (NOT DETECTE) C. pneumoniae DNA (PCR) Not detected (NOT DETECTE) Coronavirus Type OC43 Not detected (NOT DETECTE) Coronavirus Type HKU1 Not detected (NOT DETECTE) Coronavirus Type 229E Not detected (NOT DETECTE) Coronavirus Type NL63 Not detected (NOT DETECTE) Human Metapneumovir PCR Not detected (NOT DETECTE) M. pneumoniae (PCR) Not detected (NOT DETECTE) Parainfluenza PCR Not detected (NOT DETECTE) Parainfluenza 2 (PCR) Not detected (NOT DETECTE) Parainfluenza 3 (PCR) Not detected (NOT DETECTE) Parainfluenza 4 (PCR) Not detected (NOT DETECTE) RSV (RT-PCR) Not detected (NOT DETECTE) Entero/Rhino (PCR) Not detected (NOT DETECTE) SARS-CoV-2 (PCR) Detected A (NOT DETECTE) Bordetella pertussis (PCR) Not detected (NOT DETECTE) B parapertussis DNA PCR Not detected (NOT DETECTE) Influenza Type A (PCR) Not detected (NOT DETECTE) Influenza Type B (PCR) Not detected (NOT DETECTE) Discharge Plan Discharge Chief Complaint: Chest Pain Clinical Impression: AMS (altered mental status), Pneumonia Patient Disposition: Admitted As Inpatient Time of Disposition Decision: 23:45 Condition: Fair Discharge Date/Time: 07/16/22 23:45
--- NOTE | 2022-07-16 18:23 | CT_ITS ---
[place] [id number] Patient Name: JOVANNY EVANS MRN: [id number] date: 1940 Sex: M Assigned Patient Location: ER Current Patient Location: ER Accession/Order Number: [id number] Exam Date: 07/16/2022 19:10 Report Date: 07/16/2022 19:58 At the request of: NIALL DAVIS Procedure: CT head/brain wo con EXAMINATION: CT head/brain wo con, 07/16/2022 7:10 PM EDT HISTORY: mental status changes COMPARISON: 07/11/2022 TECHNIQUE: CT scan of the head was performed without IV contrast. CT dose reduction technique was used, including Automated Exposure Control. FINDINGS: BRAIN PARENCHYMA/CSF SPACES: Prominence of the ventricles and sulci compatible with diffuse cerebral atrophy. Periventricular white matter hypodensities suggesting chronic small vessel ischemic changes. Stable dilatation of the posterior horns of the lateral ventricles bilaterally. There is no hemorrhage, mass effect or midline shift. There are no other significant findings. PARANASAL SINUSES: Clear. SKULL BASE AND CALVARIUM: Normal. EXTRACRANIAL SOFT TISSUES: Nearly resolved left parietal scalp hematoma. IMPRESSION: 1. No acute intracranial abnormality. 2. Atrophy and chronic white matter small vessel ischemic changes. 3. Nearly resolved left parietal scalp hematoma. Electronically authenticated by: HELADIO LINARES Date: 07/16/2022 19:58
[2022-07-16] MEDS: 0.9 % SODIUM CHLORIDE 1,000 ML 999 ML IV (18:38)
[2022-07-16 18:42] LABS: Alanine Aminotransferase 30 U/L (16-63); Alkaline Phosphatase 55 U/L (46-116); Aspartate Amino Transferase 28 U/L (15-37); Bilirubin Total 1.2 mg/dL (0.2-1.0); Calcium 8.7 mg/dL (8.5-10.1); Carbon Dioxide 24.8 mmol/L (21.0-32.0); Chloride 93 mmol/L (98-107); Estimated GFR (African America >60 (>=60); Estimated GFR (Non-African Ame >60 (>=60); Glucose 129 mg/dL (74-106); Potassium 4.8 mmol/L (3.5-5.1); Sodium 125 mmol/L (136-145); Total Protein 7.3 g/dL (6.4-8.2)
[2022-07-16 18:43] LABS: Albumin Globulin Ratio 1.2; Globulin 3.3 g/dL
[2022-07-16 18:44] LABS: Basophils Percent Auto 0.4 % (0.2-2.0); Eosinophils Percent Auto 0.8 % (0.9-7.0); Hematocrit 33.4 % (42.0-54.0); Hemoglobin 11.7 g/dL (14.0-18.0); Immature Granulocytes Abs Auto 0.02 10^3/uL (0.00-0.03); Immature Granulocytes Pct Auto 0.4 % (0.0-0.5); Lymphocytes Absolute Auto 0.5 10^3/uL (1.2-3.8); Lymphocytes Percent Auto 9.7 % (20.5-60.0); Mean Corpuscular Hemoglobin 32.1 pg (25.9-34.0); Mean Corpuscular Volume 91.5 fL (80.0-94.0); Mean Platelet Volume 10.4 fL (9.5-13.5); Monocytes Absolute Auto 0.7 10^3/uL (0.3-0.8); Neutrophils Absolute Auto 3.5 10^3/uL (1.4-6.5); Neutrophils Percent Auto 73.7 % (43.0-75.0); Platelet Count 102 10^3/uL (150-450); Red Blood Count 3.65 10^6/uL (4.70-6.10); Red Cell Distribution Width 15.2 % (11.0-15.0); White Blood Count 4.7 10^3/uL (4.0-11.0)
[2022-07-16 18:45] LABS: Bilirubin Urine NEGATIVE (NEGATIVE); Blood Urine NEGATIVE (NEGATIVE); Clarity Urine CLEAR (CLEAR); Color Urine YELLOW (YELLOW); Glucose Urine UA NEGATIVE (NEGATIVE); Ketones Urine NEGATIVE (NEGATIVE); Leukocyte Esterase Urine NEGATIVE (NEGATIVE); Nitrite Urine NEGATIVE (NEGATIVE); Protein Urine NEGATIVE (NEG/TRACE); Urobilinogen Urine 0.2 EU/dL (0.2-1.0); pH Urine 7.5 (5.0-9.0)
--- NOTE | 2022-07-16 18:46 | PC.NURSE ---
pt brought in by daughter and son in law. pt lives at home with his . pt was seen at [facility] on monday for a cervical fracture. pt currently in c-collar. pt family states that yesterday patient started acting off and seemed confused. today when patient got up he was a lot more confused and not acting appropriately. family states pt has hx of dementia and is hard of hearing but is normally able to answer questions appropriately. today pt was outside sitting on swing and wasn't able to get himself up to walk inside and normally patient can get around on his own well. on arrival to ed pt had to be assisted out of wheelchair and wasn't able to ambulate on his own. 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
[2022-07-16 18:49] LABS: Urine Microscopic Indicated NO
[2022-07-16 18:57] LABS: INR 1.14; Partial Thromboplastin Time 27.6 sec (22.3-36.2)
[2022-07-16] MEDS: AZITHROMYCIN 500 MG in 0.9 % SODIUM CHLORIDE 250 ML 250 MG IV (21:23)
[2022-07-16] MEDS: CEFTRIAXONE 1,000 MG in 0.9 % SODIUM CHLORIDE 50 ML 100 MG IV (21:24)
[2022-07-16 21:28] LABS: Adenovirus NOT DETECTED (NOT DETECTE); Bordetella parapertussis NOT DETECTED (NOT DETECTE); Coronavirus 229E NOT DETECTED (NOT DETECTE); Coronavirus HKU1 NOT DETECTED (NOT DETECTE); Coronavirus NL63 NOT DETECTED (NOT DETECTE); Coronavirus OC43 NOT DETECTED (NOT DETECTE); Human Metapneumovirus NOT DETECTED (NOT DETECTE); Human Rhinovirus/Enterovirus NOT DETECTED (NOT DETECTE); Influenza A NOT DETECTED (NOT DETECTE); Influenza B NOT DETECTED (NOT DETECTE); Mycoplasma pneumoniae NOT DETECTED (NOT DETECTE); Parainfluenza Virus 1 NOT DETECTED (NOT DETECTE); Parainfluenza Virus 2 NOT DETECTED (NOT DETECTE); Parainfluenza Virus 3 NOT DETECTED (NOT DETECTE); Parainfluenza Virus 4 NOT DETECTED (NOT DETECTE); Respiratory Syncytial Virus NOT DETECTED (NOT DETECTE)
[2022-07-16] MEDS: ACETAMINOPHEN 325 MG TABLET 650 MG PO (21:45)
[2022-07-16 22:21] LABS: SARS-CoV-2 DETECTED (NOT DETECTE)
[2022-07-17] VITALS (8 sets, daily range): BP systolic 129–170; BP diastolic 65–75; PULSE 92–97; RESP 17–20; TEMP 36.9–39.1; O2SAT 94–97
--- NOTE | 2022-07-17 01:50 | W.PM.TELEPN ---
Progress Note: Subjective Subjective Interval history: CC: Confusion History obtained from discussion with ER staff and chart review history limited due to confusion HPI: 81 year old male with history of hypertension, hyperlipidemia, hyponatremia and recent fall sustained C-1 fracture with C-collar discharged home from outside hospital who presents with worsening confusion from baseline. he lives with family who help take care of him. he has poor oral intake, frequent falls, and questionable history of Afib. He is on Aspirin and Plavix. No family around at time of my exam. upon arrival to the ER he had temp 103, and a dry cough. UA clear, blood cultures obtained, Viral panel requested, CXR per prelim report questionable air space disease in bases, non- hypoxic, vitals otherwise stable. patient was treated with tylenol, rocephin, Azithromycin, IV fluids. labs remarkable for Na level 125. no reports of diuretic use. ROS: unable to be obtained due to confusion Past medical/surgical history: confused, not obtained Family history: confused Social history: lives with family, no reports of alcohol or tobacco use. Exam Narrative Exam Narrative: GEN: lying in bed, hard of hearing, confused, no distress HEENT: C-collar in place, atraumatic CVS: RRR, no edema Lungs: diminished breath sounds bases, normal respiratory effort GI: soft, non tender, non distended, no visible masses Neuro: moves all extremities Skin: no breakdown Constitutional Vital Signs - 24 hr 07/16/22 17:52 07/16/22 18:42 07/16/22 17:53 Temperature 99.3 F 100.8 F H Pulse Rate 77 Pulse Rate [Monitor] 78 Respiratory Rate 18 18 Blood Pressure 122/72 H Blood Pressure [Left Arm] 122/72 H Pulse Oximetry 96 98 Oxygen Delivery Method Room Air 07/16/22 17:53 07/16/22 17:53 07/16/22 19:35 Temperature Pulse Rate 96 H 94 H Pulse Rate [Monitor] Respiratory Rate 14 23 Blood Pressure 122/72 H 148/76 H Blood Pressure [Left Arm] Pulse Oximetry 95 92 L 99 Oxygen Delivery Method 07/16/22 19:35 07/16/22 20:00 07/16/22 20:30 Temperature Pulse Rate 93 H 102 H 91 H Pulse Rate [Monitor] Respiratory Rate 19 27 H 18 Blood Pressure 148/76 H 153/86 H 146/72 H Blood Pressure [Left Arm] Pulse Oximetry 93 L 98 98 Oxygen Delivery Method 07/16/22 20:30 07/16/22 21:01 07/16/22 21:30 Temperature Pulse Rate 102 H 103 H 94 H Pulse Rate [Monitor] Respiratory Rate 38 H 21 22 Blood Pressure 146/72 H 160/75 H 162/83 H Blood Pressure [Left Arm] Pulse Oximetry 98 97 86 L Oxygen Delivery Method 07/16/22 22:02 07/16/22 22:02 07/16/22 22:31 Temperature Pulse Rate 101 H 101 H 91 H Pulse Rate [Monitor] Respiratory Rate 19 26 H 18 Blood Pressure 154/92 H 154/92 H 125/57 H Blood Pressure [Left Arm] Pulse Oximetry 94 L 94 L 86 L Oxygen Delivery Method 07/16/22 23:00 07/16/22 23:30 07/17/22 00:04 Temperature 98.8 F Pulse Rate 85 100 H 94 H Pulse Rate [Monitor] Respiratory Rate 15 21 17 Blood Pressure 99/57 L 127/59 H Blood Pressure [Left Arm] 134/66 H Pulse Oximetry 97 Oxygen Delivery Method Room Air Common normals: no apparent distress Exam limitations: altered mental status Orientation/consciousness: Yes awake [facility] Common normals: normocephalic Head and scalp: atraumatic Face and sinus: normal facial exam Progress Note: Objective Labs Labs: Short CBC 07/16/22 Range/Units 18:05 WBC 4.7 (4.0-11.0) 10^3/uL Hgb 11.7 L (14.0-18.0) g/dL Hct 33.4 L (42.0-54.0) % Plt Count 102 L (150-450) 10^3/uL BMP 07/16/22 18:05 Sodium 125 L Potassium 4.8 Chloride 93 L Carbon Dioxide 24.8 BUN 16.0 Creatinine 0.89 Glucose 129 H Calcium 8.7 Liver Function 07/16/22 Range/Units 18:05 Total Bilirubin 1.2 H (0.2-1.0) mg/dL AST 28 (15-37) U/L ALT 30 (16-63) U/L Alkaline Phosphatase 55 (46-116) U/L Albumin 4.0 (3.4-5.0) g/dL Urine 07/16/22 Range/Units 18:15 Urine Color Yellow (YELLOW) Urine Clarity Clear (CLEAR) Urine pH 7.5 (5.0-9.0) Ur Specific [place] 1.010 (1.005-1.025) Urine Protein Negative (NEG/TRACE) mg/dL Urine Glucose (UA) Negative (NEGATIVE) mg/dL Progress Note: A&P Assessment and Plan (1) Hyponatremia: (2) Hypertension: (3) Hard of hearing: (4) Cardiac disease: Plan Acute febrile illness secondary to Covid viral infection - admit to covid isolation precautions - No hypoxia, follow up on CXR results, decadron for pneumonia or hypoxia - Paxlovid for now - tylenol, robitussin, Albuterol Inhaler, 02 prn - check CRP, D dimer, procalcitonin level Acute Confusion due to above - avoid sedatives, hypnotics, delirium precautions - hold home [place] Frequent falls- PT/OT, fall precautions, may need placement C-1 fracture- continue with C -collar. obtain records from recent hospitalization Hyponatremia, per ER staff chronic. - check urine and serum osmolality - check Tsh, cortisol - check urine lytes, and serum uric acid - fluid restrict for now and monitor Na levels closely. - did recieve 1L NS in ER. hypertension- on Metoprolol and lisinopril dyslipidema- continue statin ?? history of Afib- continue Aspirin DVT ppx- lovenox code status, need ot check with son/family medications reviewed and ordered Communications: discussed with ER physician, bedside nurse telemedicine clause: as the provider of this telehealth evaluation, requested by the patients evaluating physician. I attest that I introduced myself to the patient, provided my credentials and determined that telemedicine via 2 way interactive audio and video platform is an appropriate and effective means of providing this service. I reviewed the patient chart and discussed with patient treatment team. the nurse was present during the entire time of the encounter and was able to move the stethoscope in appropriate directions, the patient was evaluated at 0140 Telemedicine Attestation Telemedicine Attestation I conducted this encounter from [[place]] via secure live, [id number] video conference with the patient, [facility] located at [facility]. Prior to the interview, the risks and benefits of telemedicine were discussed with the patient and verbal consent was obtained.
[2022-07-17 02:29] LABS: Magnesium 1.9 mg/dL (1.8-2.4)
[2022-07-17 02:34] LABS: Sodium Urine Random 132 mmol/L (30-90)
[2022-07-17 05:28] LABS: Sodium 126 mmol/L (136-145)
[2022-07-17] MEDS: SODIUM CHLORIDE 1,000 MG TABLET 1000 MG PO ×3 (07:08→21:44)
[2022-07-17] MEDS: ENOXAPARIN SODIUM 40 MG/0.4 ML SYRINGE SUBQ (08:27)
[2022-07-17] MEDS: ACETAMINOPHEN 500 MG TABLET 1000 MG PO ×2 (08:41→15:00)
[2022-07-17 09:38] LABS: BUN Creatinine Ratio 16.7; Calcium 8.2 mg/dL (8.5-10.1); Chloride 93 mmol/L (98-107); Estimated GFR (African America >60 (>=60); Estimated GFR (Non-African Ame >60 (>=60); Glucose 109 mg/dL (74-106); Sodium 125 mmol/L (136-145)
--- NOTE | 2022-07-17 13:15 | PM.HP ---
H&P: HPI History of Present Illness Chief complaint: CHEST PAIN Narrative: Limited history obtained from patient due to baseline dementia, confusion and poor hearing. Most of information was obtained from review of chart and son who was present bedside. Patient has hx of dementia, lives with his and atleast one family member stay the night at their home to make sure they are safe and taken care off at home. Patient had a fall recently about a week ago at home and ended up with cervical spine fx for which he is wearing a hard neck collar. Son reports that after discharge from the hospital, patient started to get increasingly confused, disoriented and then complained of right sided chest pain with fever. Most of his symptoms had acute onset yesterday morning and he was brought in for further evaluation to ED. W/u was c/w COVID 19 infection, severe hyponatremia and even this morning he was febrile. When I spoke to him, he told me that he had no active complaints to offer. He appeared comfortable. He was still confused and according to son this is not his baseline. Review of Systems ROS Status of ROS unobtainable due to mental status [facility] Medical History (Updated 07/17/22 @ 13:32 by Shaikh Carlita MD) Surgical History (Updated 07/17/22 @ 00:14 by Georgina Crook) Social History (Updated 07/17/22 @ 00:17 by Georgina Corok) Within the past year, how often did you have a drink containing alcohol: never Score interpretation: A score less than 4 is consistent with normal alcohol consumption. Smoking status: Former smoker Non-prescribed substance use: denies use Previous occupational history: retired Known occupational exposures/hazards: No Highest level of school completed/degree received: high school graduate Are you now , , , , never or living with a partner: don't know In a typical week, how many times do you talk on the telephone with family, friends, or neighbors: 3 or more times per week How often do you get together with friends or relatives: 3 or more times per week How often do you attend sikh or orthodoxy services: 4 or more times per year Do you belong to any clubs or organizations such as sikh groups unions, fraternal or athletic groups, or school groups: no Total score: 2 Score interpretation: A score of greater than or equal to 2 indicates the lowest level of social isolation. Little interest or pleasure in doing things: not at all Feeling down, depressed, or hopeless: not at all Feel stressed/tense/nervous/anxious/difficulty sleeping: not at all Due to disability, difficulty making decisions: Yes Do you think of yourself as: straight/heterosexual Gender Identity: male Meds Home Medications and Allergies Home Medications Medication Instructions Recorded Confirmed Type atorvastatin 80 mg tablet 80 mg PO QDAY 07/11/22 07/16/22 History clopidogrel 75 mg tablet 75 mg PO QDAY 07/11/22 07/16/22 History metoprolol succinate 25 mg 25 mg PO Q12H 07/11/22 07/16/22 History tablet,extended release 24 hr acetaminophen 325 mg tablet (Aphen) 650 mg PO Q6H PRN fever or pain 07/16/22 07/16/22 History amlodipine 5 mg tablet 5 mg PO QDAY 07/16/22 07/16/22 History aspirin 81 mg tablet,delayed 81 mg PO DAILY 07/16/22 07/16/22 History release (Adult Low Dose Aspirin) hydrocodone 5 mg-acetaminophen 325 1 tab PO Q6H PRN pain 07/16/22 07/16/22 History mg tablet lidocaine 5 % topical patch See Rx Instructions topical 07/16/22 07/16/22 History (Lidoderm) .COMPLEX multivitamin (Daily Multi-Vitamin 1 tab PO DAILY 07/16/22 07/16/22 History tablet) lisinopril 20 mg tablet 20 mg PO DAILY 07/17/22 07/17/22 History Allergies Allergy/AdvReac Type Severity Reaction Status Date / Time No Known Drug Allergies Allergy Verified 07/16/22 17:52 Exam Constitutional Vital Signs - 24 hr 07/16/22 17:52 07/16/22 18:42 07/16/22 17:53 Temperature 99.3 F 100.8 F H Pulse Rate 77 Pulse Rate [Monitor] 78 Respiratory Rate 18 18 Blood Pressure 122/72 H Blood Pressure [Left Arm] 122/72 H Pulse Oximetry 96 98 Oxygen Delivery Method Room Air 07/16/22 17:53 07/16/22 17:53 07/16/22 19:35 Temperature Pulse Rate 96 H 94 H Pulse Rate [Monitor] Respiratory Rate 14 23 Blood Pressure 122/72 H 148/76 H Blood Pressure [Left Arm] Pulse Oximetry 95 92 L 99 Oxygen Delivery Method 07/16/22 19:35 07/16/22 20:00 07/16/22 20:30 Temperature Pulse Rate 93 H 102 H 91 H Pulse Rate [Monitor] Respiratory Rate 19 27 H 18 Blood Pressure 148/76 H 153/86 H 146/72 H Blood Pressure [Left Arm] Pulse Oximetry 93 L 98 98 Oxygen Delivery Method 07/16/22 20:30 07/16/22 21:01 07/16/22 21:30 Temperature Pulse Rate 102 H 103 H 94 H Pulse Rate [Monitor] Respiratory Rate 38 H 21 22 Blood Pressure 146/72 H 160/75 H 162/83 H Blood Pressure [Left Arm] Pulse Oximetry 98 97 86 L Oxygen Delivery Method 07/16/22 22:02 07/16/22 22:02 07/16/22 22:31 Temperature Pulse Rate 101 H 101 H 91 H Pulse Rate [Monitor] Respiratory Rate 19 26 H 18 Blood Pressure 154/92 H 154/92 H 125/57 H Blood Pressure [Left Arm] Pulse Oximetry 94 L 94 L 86 L Oxygen Delivery Method 07/16/22 23:00 07/16/22 23:30 07/17/22 00:04 Temperature 98.8 F Pulse Rate 85 100 H 94 H Pulse Rate [Monitor] Respiratory Rate 15 21 17 Blood Pressure 99/57 L 127/59 H Blood Pressure [Left Arm] 134/66 H Pulse Oximetry 97 Oxygen Delivery Method Room Air 07/17/22 06:00 07/17/22 08:41 Temperature 100.3 F H 102.3 F H Pulse Rate 97 H Pulse Rate [Monitor] Respiratory Rate 20 Blood Pressure Blood Pressure [Left Arm] 134/65 H Pulse Oximetry 95 Oxygen Delivery Method Room Air Documenting provider has reviewed patient's vital signs: yes Common normals: no apparent distress Exam limitations: altered mental status General appearance: comfortable Nutritional appearance: thin Orientation/consciousness: Yes awake HENMT Head and scalp: other (signs of recent head injury on left temporal region) Neck & C-Spine General: other (wearing a heard neck collar) Chest Chest: abnormal inspection of the chest (midline surgical scar from CABG) Respiratory Common normals: normal respiratory effort, no use of accessory muscles and clear to auscultation bilaterally Cardio Common normals: regular rate, regular rhythm, S1 normal heart sound and S2 normal heart sound GI Common normals: Normal to inspection, nondistended, normoactive bowel sounds present, soft to palpation, non-tender and no hepatosplenomegaly Extremity Common normals: normal to inspection and full ROM Neuro Common normals: moves all extremities and no focal motor deficits Sensorium/orientation: awake, oriented to person and orientation impaired (Disoriented to time and place.) Meningeal signs: no meningeal signs Psych Appearance: grossly normal Attitude: calm Speech: minimal Mood and affect: irritable Thought process: confused and loose associations Memory/cognition: memory grossly impaired and cognition grossly impaired Insight: poor Judgement: poor Results Labs Labs: Short CBC 07/16/22 Range/Units 18:05 WBC 4.7 (4.0-11.0) 10^3/uL Hgb 11.7 L (14.0-18.0) g/dL Hct 33.4 L (42.0-54.0) % Plt Count 102 L (150-450) 10^3/uL BMP 07/16/22 07/17/22 07/17/22 18:05 05:00 09:05 Sodium 125 L 126 L 125 L Potassium 4.8 4.0 Chloride 93 L 93 L Carbon Dioxide 24.8 24.0 BUN 16.0 13.0 Creatinine 0.89 0.78 Glucose 129 H 109 H Calcium 8.7 8.2 L Liver Function 07/16/22 Range/Units 18:05 Total Bilirubin 1.2 H (0.2-1.0) mg/dL AST 28 (15-37) U/L ALT 30 (16-63) U/L Alkaline Phosphatase 55 (46-116) U/L Albumin 4.0 (3.4-5.0) g/dL Urine 07/16/22 Range/Units 18:15 Urine Color Yellow (YELLOW) Urine Clarity Clear (CLEAR) Urine pH 7.5 (5.0-9.0) Ur Specific [place] 1.010 (1.005-1.025) Urine Protein Negative (NEG/TRACE) mg/dL Urine Glucose (UA) Negative (NEGATIVE) mg/dL Assessment and Plan Assessment and Plan (1) Metabolic encephalopathy: Assessment and Plan: Multifactorial and likely from COVID 19, fever, and hypoantremia. Slightly better from last night. Monitor. Treat underlying cause. No agitation/psychosis. Patient is comfortable. (2) COVID-19: Assessment and Plan: No resp symptoms. Started on Paxlovid. (3) Hyponatremia with normal extracellular fluid volume: Assessment and Plan: Euvolemic on exam. Urine sodium and Osm c/w SIADH. Fluid restriction. NACL 1 g TID. BMP Q6 Cortisol in am. Monitor closely. Neuro check q4. (4) Hypertension: Assessment and Plan: C/w Lisinopril. Monitor. Qualifiers: Hypertension type: primary hypertension Qualified Code(s): I10 - Essential (primary) hypertension (5) CAD (coronary artery disease): Assessment and Plan: s/p CABG and PCI On ASA, PLAVIX, Lopressor and Lipitor. C/w same Qualifiers: Coronary Disease-Associated Artery/Lesion type: [place] artery [place] vs. transplanted heart: [place] heart Associated angina: without angina Qualified Code(s): I25.10 - Atherosclerotic heart disease of [place] coronary artery without angina pectoris (6) HLD (hyperlipidemia): (7) Dementia: Assessment and Plan: Baseline dementia. Outpatient f/u with Neurology. Closely monitor Qualifiers: Dementia type: Alzheimer's Alzheimer's disease onset: late onset Dementia severity: moderate Dementia behavioral or psychological symptom: with anxiety Qualified Code(s): G30.1 - Alzheimer's disease with late onset; F02.B4 - Dementia in other diseases classified elsewhere, moderate, with anxiety
[2022-07-17] MEDS: METOPROLOL SUCCINATE 25 MG TAB.ER.24H PO ×2 (14:48→23:38)
[2022-07-17 16:14] LABS: Anion Gap 12.5; BUN Creatinine Ratio 17.1; Calcium 8.3 mg/dL (8.5-10.1); Carbon Dioxide 22.4 mmol/L (21.0-32.0); Chloride 94 mmol/L (98-107); Estimated GFR (African America >60 (>=60); Estimated GFR (Non-African Ame >60 (>=60); Glucose 97 mg/dL (74-106); Potassium 3.9 mmol/L (3.5-5.1); Sodium 125 mmol/L (136-145)
[2022-07-17] MEDS: ACETAMINOPHEN 325 MG TABLET 650 MG PO (21:44)
[2022-07-17 22:37] LABS: Anion Gap 14.5; BUN Creatinine Ratio 17.3; Calcium 8.4 mg/dL (8.5-10.1); Carbon Dioxide 22.5 mmol/L (21.0-32.0); Chloride 93 mmol/L (98-107); Estimated GFR (African America >60 (>=60); Estimated GFR (Non-African Ame >60 (>=60); Glucose 89 mg/dL (74-106); Sodium 126 mmol/L (136-145)
[2022-07-18 04:36] VITALS: BP 144/81; PULSE 71; RESP 18; TEMP 37.1; O2SAT 92
[2022-07-18 05:07] LABS: Basophils Percent Auto 0.4 % (0.2-2.0); Eosinophils Percent Auto 0.4 % (0.9-7.0); Hematocrit 34.6 % (42.0-54.0); Hemoglobin 11.8 g/dL (14.0-18.0); Immature Granulocytes Abs Auto 0.01 10^3/uL (0.00-0.03); Immature Granulocytes Pct Auto 0.4 % (0.0-0.5); Lymphocytes Absolute Auto 0.5 10^3/uL (1.2-3.8); Lymphocytes Percent Auto 20.2 % (20.5-60.0); Mean Corpuscular HGB Conc 34.1 g/dL (29.9-35.2); Mean Corpuscular Volume 93.8 fL (80.0-94.0); Mean Platelet Volume 10.7 fL (9.5-13.5); Monocytes Absolute Auto 0.6 10^3/uL (0.3-0.8); Monocytes Percent Auto 23.6 % (1.7-12.0); Neutrophils Absolute Auto 1.4 10^3/uL (1.4-6.5); Platelet Count 84 10^3/uL (150-450); Red Blood Count 3.69 10^6/uL (4.70-6.10); Red Cell Distribution Width 14.8 % (11.0-15.0); White Blood Count 2.6 10^3/uL (4.0-11.0)
[2022-07-18 05:26] LABS: Alanine Aminotransferase 33 U/L (16-63); Albumin Globulin Ratio 1.1; Albumin Level 3.6 g/dL (3.4-5.0); Alkaline Phosphatase 50 U/L (46-116); Aspartate Amino Transferase 35 U/L (15-37); BUN Creatinine Ratio 19.5; Bilirubin Total 0.9 mg/dL (0.2-1.0); Calcium 8.3 mg/dL (8.5-10.1); Carbon Dioxide 22.9 mmol/L (21.0-32.0); Chloride 94 mmol/L (98-107); Estimated GFR (African America >60 (>=60); Estimated GFR (Non-African Ame >60 (>=60); Globulin 3.3 g/dL; Glucose 86 mg/dL (74-106); Potassium 3.9 mmol/L (3.5-5.1); Sodium 127 mmol/L (136-145); Total Protein 6.9 g/dL (6.4-8.2)
[2022-07-18] MEDS: SODIUM CHLORIDE 1,000 MG TABLET 1000 MG PO (06:25)
[2022-07-18] MEDS: ASPIRIN 81 MG TABLET.DR PO (10:23)
[2022-07-18] MEDS: ATORVASTATIN CALCIUM 40 MG TABLET 80 MG PO (10:23)
[2022-07-18] MEDS: MULTIVITAMIN TABLET 400 TAB PO (10:23)
[2022-07-18] MEDS: LISINOPRIL 20 MG TABLET PO (10:23)
[2022-07-18] MEDS: AMLODIPINE BESYLATE 5 MG TABLET PO (10:24)
[2022-07-18] MEDS: ENOXAPARIN SODIUM 40 MG/0.4 ML SYRINGE SUBQ (10:24)
[2022-07-18] MEDS: SENNOSIDES 8.6 MG TABLET PO (10:24)
[2022-07-18] MEDS: CLOPIDOGREL BISULFATE 75 MG TABLET PO (10:26)
[2022-07-18 10:46] VITALS: O2SAT 92
--- NOTE | 2022-07-18 11:37 | PM.IMPN1 ---
Progress Note: A&P Assessment and Plan (1) Metabolic encephalopathy: Assessment and Plan: Better from before. Likely progression of his dementia with acute worsening due to COVID and hyponatremia Anxious and agitated intermittently. Added Seroquel (2) COVID-19: Assessment and Plan: No resp complaints. On Paxlovid. 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 Fuid restictions. Increase Salt tablets to 3 gm TID (4) Hypertension: Assessment and Plan: c/w home meds. At goal Qualifiers: Hypertension type: primary hypertension Qualified Code(s): I10 - Essential (primary) hypertension (5) CAD (coronary artery disease): Assessment and Plan: s/p CABG. on ASA, plavix, and statin Qualifiers: Coronary Disease-Associated Artery/Lesion type: [place] artery [place] vs. transplanted heart: [place] heart Associated angina: without angina Qualified Code(s): I25.10 - Atherosclerotic heart disease of [place] coronary artery without angina pectoris (6) HLD (hyperlipidemia): Assessment and Plan: C/w statin (7) Dementia: Assessment and Plan: Likely alzehimers with possible vascular dementia. Outpatient f/u needed with Neurology. Qualifiers: Dementia type: Alzheimer's Alzheimer's disease onset: late onset Dementia severity: moderate Dementia behavioral or psychological symptom: with anxiety Qualified Code(s): G30.1 - Alzheimer's disease with late onset; F02.B4 - Dementia in other diseases classified elsewhere, moderate, with anxiety Internal Medicine - PN: Subj Subjective Interval history: Seen and examined. No overnight events. Confused and intermittently agitated. Exam Constitutional Vital Signs - 24 hr 07/17/22 15:00 07/17/22 15:01 07/17/22 17:22 Temperature 100.5 F H 100.5 F H 99.3 F Pulse Rate 92 H Respiratory Rate 20 Blood Pressure [Left Arm] 129/69 H Pulse Oximetry 94 L Oxygen Delivery Method Room Air 07/17/22 20:52 07/18/22 04:36 07/18/22 10:46 Temperature 98.5 F 98.7 F Pulse Rate 96 H 71 Respiratory Rate 18 18 Blood Pressure [Left Arm] 170/75 H 144/81 H Pulse Oximetry 92 L 92 L Oxygen Delivery Method Room Air Room Air Room Air 07/17/22 15:40 Temperature Pulse Rate Respiratory Rate Blood Pressure [Left Arm] Pulse Oximetry 94 L Oxygen Delivery Method Room Air Documenting provider has reviewed patient's vital signs: yes Common normals: no apparent distress Exam limitations: altered mental status General appearance: comfortable Nutritional appearance: thin Orientation/consciousness: Yes awake HENMT Head and scalp: other (signs of recent head injury on left temporal region) Neck & C-Spine General: other (wearing a heard neck collar) Chest Chest: abnormal inspection of the chest (midline surgical scar from CABG) Respiratory Common normals: normal respiratory effort, no use of accessory muscles and clear to auscultation bilaterally Cardio Common normals: regular rate, regular rhythm, S1 normal heart sound and S2 normal heart sound GI Common normals: Normal to inspection, nondistended, normoactive bowel sounds present, soft to palpation, non-tender and no hepatosplenomegaly Extremity Common normals: normal to inspection and full ROM Neuro Common normals: moves all extremities and no focal motor deficits Sensorium/orientation: awake, oriented to person and orientation impaired (Disoriented to time and place.) Meningeal signs: no meningeal signs Psych Appearance: grossly normal Attitude: calm Mood and affect: irritable Thought process: confused and loose associations Memory/cognition: memory grossly impaired and cognition grossly impaired Insight: poor Judgement: poor Internal Medicine - PN: Obj Da Labs Labs: Laboratory Results - last 24 hr 07/17/22 07/17/22 07/18/22 16:00 22:20 04:47 WBC 2.6 L RBC 3.69 L Hgb 11.8 L Hct 34.6 L MCV 93.8 MCH 32.0 MCHC 34.1 RDW 14.8 Plt Count 84 L MPV 10.7 Neut % (Auto) 55.0 Lymph % (Auto) 20.2 L [place] % (Auto) 23.6 H Eos % (Auto) 0.4 L Baso % (Auto) 0.4 Neut # (Auto) 1.4 Lymph # (Auto) 0.5 L [place] # (Auto) 0.6 Eos # (Auto) 0.0 Baso # (Auto) 0.0 Abs Immat Gran (auto) 0.01 Imm/Tot Granulo (auto) 0.4 Sodium 125 L 126 L 127 L Potassium 3.9 4.0 3.9 Chloride 94 L 93 L 94 L Carbon Dioxide 22.4 22.5 22.9 Anion Gap 12.5 14.5 14.0 BUN 13.0 14.0 15.0 Creatinine 0.76 0.81 0.77 Est GFR ( Amer) >60 >60 >60 Est GFR (Non-Af Amer) >60 >60 >60 BUN/Creatinine Ratio 17.1 17.3 19.5 Glucose 97 89 86 Calcium 8.3 L 8.4 L 8.3 L Total Bilirubin 0.9 AST 35 ALT 33 Alkaline Phosphatase 50 Total Protein 6.9 Albumin 3.6 Globulin 3.3 Albumin/Globulin Ratio 1.1 Urinary Catheter Management Urinary Catheter Management Urethral: Cath placed during this visit: yes Urethral indwelling: No Insertion date: 07/16/22 Insertion time: 18:24
--- NOTE | 2022-07-18 12:09 | CM.NOTE ---
Rounds made with Dr. Zazueta. Discussed with son. Son would like to take his father home with at discharge. No plan for discharge today.
[2022-07-18] MEDS: METOPROLOL SUCCINATE 25 MG TAB.ER.24H PO (13:26)
[2022-07-18] MEDS: SODIUM CHLORIDE 1,000 MG TABLET 3000 MG PO ×2 (13:26→22:13)
[2022-07-18 14:00] VITALS: BP 129/70; PULSE 87; RESP 18; TEMP 36.9; O2SAT 96
--- NOTE | 2022-07-18 16:24 | DIETREC ---
Nutrition Recommendations: 1) Recommend adding Prostat 30 mL once daily
--- NOTE | 2022-07-18 16:25 | SWNOTE1 ---
SW attempted to complete assessment with pt, but he was going to take a nap, pt appeared confused as well. ANYA called daughter and she was on her way with her mother to [facility], she stated her daughter is on her way to hospital. SW met with grand-daughter. Family is now thinking they want pt to go to rehab. Pt is covid positive and will have limited choices. SW reviewed the possible choices, but had to clarify with facilities. Grand-daughter is alright with [place] facilities because she works in [place] and other family is in [place]. SW to check with facilities. SW reached out to [facility], [facility], [facility], and [facility]. [facility] and [facility] not accepting covid. [facility] is accepting and waiting to hear back from [facility]. SW to touch base with grand-daughter in morning. Earliest dc would be 07/20/22.
[2022-07-18 17:22] LABS: Anion Gap 14.4; BUN Creatinine Ratio 24.4; Calcium 8.2 mg/dL (8.5-10.1); Carbon Dioxide 23.6 mmol/L (21.0-32.0); Chloride 95 mmol/L (98-107); Estimated GFR (African America >60 (>=60); Estimated GFR (Non-African Ame >60 (>=60); Glucose 109 mg/dL (74-106); Sodium 129 mmol/L (136-145)
[2022-07-18 20:00] VITALS: PULSE 76
[2022-07-18 20:18] VITALS: O2SAT 97
[2022-07-18 22:00] VITALS: BP 150/75; PULSE 76; RESP 18; TEMP 37.2; O2SAT 94
[2022-07-18] MEDS: ACETAMINOPHEN 325 MG TABLET 650 MG PO (22:15)
[2022-07-18] MEDS: QUETIAPINE FUMARATE 100 MG TABLET PO (22:15)
[2022-07-19] MEDS: METOPROLOL SUCCINATE 25 MG TAB.ER.24H PO ×2 (02:19→09:12)
[2022-07-19 04:45] VITALS: O2SAT 92
[2022-07-19 05:12] LABS: Basophils Percent Auto 0.4 % (0.2-2.0); Hematocrit 37.1 % (42.0-54.0); Hemoglobin 12.7 g/dL (14.0-18.0); Immature Granulocytes Abs Auto 0.01 10^3/uL (0.00-0.03); Immature Granulocytes Pct Auto 0.4 % (0.0-0.5); Lymphocytes Absolute Auto 0.6 10^3/uL (1.2-3.8); Lymphocytes Percent Auto 22.3 % (20.5-60.0); Mean Corpuscular HGB Conc 34.2 g/dL (29.9-35.2); Mean Corpuscular Hemoglobin 31.9 pg (25.9-34.0); Mean Corpuscular Volume 93.2 fL (80.0-94.0); Monocytes Absolute Auto 0.6 10^3/uL (0.3-0.8); Monocytes Percent Auto 19.8 % (1.7-12.0); Neutrophils Absolute Auto 1.6 10^3/uL (1.4-6.5); Neutrophils Percent Auto 57.1 % (43.0-75.0); Platelet Count 71 10^3/uL (150-450); Red Blood Count 3.98 10^6/uL (4.70-6.10); Red Cell Distribution Width 14.6 % (11.0-15.0); White Blood Count 2.8 10^3/uL (4.0-11.0)
[2022-07-19 05:41] LABS: Alanine Aminotransferase 43 U/L (16-63); Albumin Globulin Ratio 0.9; Albumin Level 3.3 g/dL (3.4-5.0); Alkaline Phosphatase 46 U/L (46-116); Aspartate Amino Transferase 51 U/L (15-37); BUN Creatinine Ratio 30.3; Bilirubin Total 0.7 mg/dL (0.2-1.0); Calcium 8.5 mg/dL (8.5-10.1); Chloride 97 mmol/L (98-107); Estimated GFR (African America >60 (>=60); Estimated GFR (Non-African Ame >60 (>=60); Globulin 3.5 g/dL; Glucose 89 mg/dL (74-106); Sodium 128 mmol/L (136-145); Total Protein 6.8 g/dL (6.4-8.2)
[2022-07-19 06:00] VITALS: BP 142/77; PULSE 76; RESP 16; TEMP 36.4; O2SAT 99
[2022-07-19] MEDS: ENOXAPARIN SODIUM 40 MG/0.4 ML SYRINGE SUBQ (09:10)
[2022-07-19] MEDS: CLOPIDOGREL BISULFATE 75 MG TABLET PO (09:11)
[2022-07-19] MEDS: AMLODIPINE BESYLATE 5 MG TABLET PO (09:11)
[2022-07-19] MEDS: ASPIRIN 81 MG TABLET.DR PO (09:11)
[2022-07-19] MEDS: ATORVASTATIN CALCIUM 40 MG TABLET 80 MG PO (09:11)
[2022-07-19] MEDS: MULTIVITAMIN TABLET 400 TAB PO (09:11)
[2022-07-19] MEDS: LISINOPRIL 20 MG TABLET PO (09:11)
--- NOTE | 2022-07-19 10:08 | SWNOTE1 ---
Both [facility] and [facility] accept covid patient's. SW called and left grand-daughter, Rudolph, and daughter, Rosalia, a message.
--- NOTE | 2022-07-19 10:45 | SWNOTE1 ---
Call back received from grand-daughter and family has decided on [facility]. ANYA to send referral. Earliest discharge is 07/20/22.
--- NOTE | 2022-07-19 10:49 | REH.PTDLY ---
Physical Therapy Daily Note PT Daily Note/Assess Start: 07/19/22 10:38 Freq: Status: Active Protocol: Document 07/19/22 08:55 MAUTEINMAGEN (Rec: 07/19/22 10:49 KSTEINMAGEN Laptop) Physical Therapy Daily Note/Assessment Time In 08:35 Time Out 08:55 Pain Unresponsive Pain Unresponsive Subjective [place] with OT. Pt has difficulties following cues this morning and keeping eyes open. Therapeutic Exercise Minutes (minutes) 3 Therapeutic Exercise Units 0 Therapeutic Exercise Treatment Attempted supine LE exs with pt being able to follow cues for AP, but unable to follow cues for any other LE exs in supine. When sitting instructed in LAQ, performs 3 on the R, does not perform any on L with verbal and tactile cues. Therapeutic Activity Minutes (minutes) 6 Therapeutic Activity Units 1 Bed Mobility Ability Maximum Assist,2 Person Assist Therapeutic Activity Comments Pt required Max A from RECTIFYING ATTENDANT to transfer from supine to sit. Once sitting pt requires Max A x1 and intermittent assist x1 to keep pt upright with good posture. Several cues for pt to lift head to look ahead and to shift weight to the R and anteriorly to maintain balance . Pt unable to follow cues and continues to lean posterior and to the L. Max A x2 with sit to supine transfer. Positioned pt's legs in hooklying and cues for to assist in scooting to HOB, but pt unable. Cues to bridge to adjust sheets, pt attempts but unable to lift very high. Total Therapy Minutes 9 Total Physical Therapy Units 1 Daily Note Summary Decline from initial evaluation yesterday with pt requiring Max A x1-2 and several cues with pt not following directions. Pt will need SNF stay at [facility] if he does not improve.
--- NOTE | 2022-07-19 11:49 | SWNOTE1 ---
SW received call from pt's daughter, Candice, and she would like [facility] for SNF for her father. SW let her know that her daughter called and left message and said [facility]. At this time Rosalia wants [facility]. SW sent referral.
[2022-07-19 12:29] LABS: Cortisol - AM 14.8 ug/dL (6.2-19.4)
--- NOTE | 2022-07-19 12:42 | CM.NOTE ---
Rounds made with Dr. Zazueta, no discharge today.
[2022-07-19 14:06] LABS: Anion Gap 13.2; BUN Creatinine Ratio 29.2; Calcium 8.5 mg/dL (8.5-10.1); Carbon Dioxide 23.6 mmol/L (21.0-32.0); Chloride 98 mmol/L (98-107); Estimated GFR (African America >60 (>=60); Estimated GFR (Non-African Ame >60 (>=60); Glucose 86 mg/dL (74-106); Potassium 3.8 mmol/L (3.5-5.1); Sodium 131 mmol/L (136-145)
[2022-07-19 14:30] VITALS: BP 100/61; PULSE 83; RESP 18; TEMP 36.8; O2SAT 95
[2022-07-19 15:09] LABS: Procalcitonin 0.04 ng/mL (0.00-0.08)
--- NOTE | 2022-07-19 16:25 | SWNOTE1 ---
[facility] is able to accept. Possible dc tomorrow.
--- NOTE | 2022-07-19 16:47 | PM.IMPN1 ---
Progress Note: A&P Assessment and Plan (1) Metabolic encephalopathy: Assessment and Plan: Better from before. Likely progression of his dementia with acute worsening due to COVID and hyponatremia Anxious and agitated intermittently. -better with Seroquel (2) COVID-19: Assessment and Plan: No resp complaints. On Paxlovid. 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 Fuid restictions. C/w Salt tablets 3 gm TID Slowly improving (4) Hypertension: Assessment and Plan: c/w home meds. At goal Qualifiers: Hypertension type: primary hypertension Qualified Code(s): I10 - Essential (primary) hypertension (5) CAD (coronary artery disease): Assessment and Plan: s/p CABG. on ASA, plavix, and statin Qualifiers: Coronary Disease-Associated Artery/Lesion type: [place] artery [place] vs. transplanted heart: [place] heart Associated angina: without angina Qualified Code(s): I25.10 - Atherosclerotic heart disease of [place] coronary artery without angina pectoris (6) HLD (hyperlipidemia): Assessment and Plan: C/w statin (7) Dementia: Assessment and Plan: Likely alzehimers with possible vascular dementia. Outpatient f/u needed with Neurology. Qualifiers: Dementia type: Alzheimer's Alzheimer's disease onset: late onset Dementia severity: moderate Dementia behavioral or psychological symptom: with anxiety Qualified Code(s): G30.1 - Alzheimer's disease with late onset; F02.B4 - Dementia in other diseases classified elsewhere, moderate, with anxiety Internal Medicine - PN: Subj Subjective Interval history: Seen and examined. No overnight events. Confused and intermittently agitated. Exam Constitutional Vital Signs - 24 hr 07/18/22 20:00 07/18/22 22:00 07/18/22 20:18 Temperature 98.9 F Pulse Rate 76 Pulse Rate [Monitor] 76 Respiratory Rate 18 Blood Pressure [Left Arm] 150/75 H Pulse Oximetry 94 L 97 Oxygen Delivery Method Room Air 07/19/22 06:00 07/19/22 04:45 07/19/22 14:30 Temperature 97.6 F 98.2 F Pulse Rate 76 83 Pulse Rate [Monitor] Respiratory Rate 16 18 Blood Pressure [Left Arm] 142/77 H 100/61 Pulse Oximetry 99 92 L 95 Oxygen Delivery Method Room Air Room Air Documenting provider has reviewed patient's vital signs: yes Common normals: no apparent distress Exam limitations: altered mental status General appearance: comfortable Nutritional appearance: thin Orientation/consciousness: Yes awake HENMT Head and scalp: other (signs of recent head injury on left temporal region) Neck & C-Spine General: other (wearing a heard neck collar) Chest Chest: abnormal inspection of the chest (midline surgical scar from CABG) Respiratory Common normals: normal respiratory effort, no use of accessory muscles and clear to auscultation bilaterally Cardio Common normals: regular rate, regular rhythm, S1 normal heart sound and S2 normal heart sound GI Common normals: Normal to inspection, nondistended, normoactive bowel sounds present, soft to palpation, non-tender and no hepatosplenomegaly Extremity Common normals: normal to inspection and full ROM Neuro Common normals: moves all extremities and no focal motor deficits Sensorium/orientation: awake, oriented to person and orientation impaired (Disoriented to time and place.) Meningeal signs: no meningeal signs Psych Appearance: grossly normal Attitude: calm Mood and affect: irritable Thought process: confused and loose associations Memory/cognition: memory grossly impaired and cognition grossly impaired Insight: poor Judgement: poor Internal Medicine - PN: Obj Da Labs Labs: Laboratory Results - last 24 hr 07/16/22 07/17/22 07/18/22 18:05 05:00 17:02 WBC RBC Hgb Hct MCV MCH MCHC RDW Plt Count MPV Neut % (Auto) Lymph % (Auto) Mower % (Auto) Eos % (Auto) Baso % (Auto) Neut # (Auto) Lymph # (Auto) [place] # (Auto) Eos # (Auto) Baso # (Auto) Abs Immat Gran (auto) Imm/Tot Granulo (auto) Sodium 129 L Potassium 4.0 Chloride 95 L Carbon Dioxide 23.6 Anion Gap 14.4 BUN 19.0 H Creatinine 0.78 Est GFR ( Amer) >60 Est GFR (Non-Af Amer) >60 BUN/Creatinine Ratio 24.4 Glucose 109 H Calcium 8.2 L Total Bilirubin AST ALT Alkaline Phosphatase Total Protein Albumin Globulin Albumin/Globulin Ratio Procalcitonin 0.04 Cortisol AM Sample 14.8 07/19/22 07/19/22 04:40 13:38 WBC 2.8 L RBC 3.98 L Hgb 12.7 L Hct 37.1 L MCV 93.2 MCH 31.9 MCHC 34.2 RDW 14.6 Plt Count 71 L MPV 10.0 Neut % (Auto) 57.1 Lymph % (Auto) 22.3 [place]ower % (Auto) 19.8 H Eos % (Auto) 0.0 L Baso % (Auto) 0.4 Neut # (Auto) 1.6 Lymph # (Auto) 0.6 L Mower # (Auto) 0.6 Eos # (Auto) 0.0 Baso # (Auto) 0.0 Abs Immat Gran (auto) 0.01 Imm/Tot Granulo (auto) 0.4 Sodium 128 L 131 L Potassium 4.0 3.8 Chloride 97 L 98 Carbon Dioxide 19.0 L 23.6 Anion Gap 16.0 13.2 BUN 23.0 H 21.0 H Creatinine 0.76 0.72 Est GFR ( Amer) >60 >60 Est GFR (Non-Af Amer) >60 >60 BUN/Creatinine Ratio 30.3 29.2 Glucose 89 86 Calcium 8.5 8.5 Total Bilirubin 0.7 AST 51 H ALT 43 Alkaline Phosphatase 46 Total Protein 6.8 Albumin 3.3 L Globulin 3.5 Albumin/Globulin Ratio 0.9 Procalcitonin Cortisol AM Sample Urinary Catheter Management Urinary Catheter Management Urethral: Cath placed during this visit: yes Urethral indwelling: No Insertion date: 07/16/22 Insertion time: 18:24
[2022-07-19 21:37] VITALS: O2SAT 95
[2022-07-19 22:00] VITALS: BP 116/65; PULSE 100; RESP 18; TEMP 36.7; O2SAT 94
[2022-07-19] MEDS: QUETIAPINE FUMARATE 100 MG TABLET PO (23:11)
[2022-07-20] MEDS: METOPROLOL SUCCINATE 25 MG TAB.ER.24H PO (00:38)
[2022-07-20 06:00] VITALS: BP 97/62; PULSE 64; RESP 18; TEMP 36.5; O2SAT 91
[2022-07-20 06:27] LABS: Basophils Percent Auto 0.4 % (0.2-2.0); Eosinophils Percent Auto 0.8 % (0.9-7.0); Hematocrit 37.2 % (42.0-54.0); Hemoglobin 12.9 g/dL (14.0-18.0); Immature Granulocytes Abs Auto 0.01 10^3/uL (0.00-0.03); Immature Granulocytes Pct Auto 0.4 % (0.0-0.5); Lymphocytes Absolute Auto 0.7 10^3/uL (1.2-3.8); Mean Corpuscular HGB Conc 34.7 g/dL (29.9-35.2); Mean Corpuscular Hemoglobin 31.5 pg (25.9-34.0); Mean Platelet Volume 10.2 fL (9.5-13.5); Monocytes Absolute Auto 0.3 10^3/uL (0.3-0.8); Monocytes Percent Auto 13.8 % (1.7-12.0); Neutrophils Absolute Auto 1.4 10^3/uL (1.4-6.5); Neutrophils Percent Auto 54.6 % (43.0-75.0); Platelet Count 70 10^3/uL (150-450); Red Blood Count 4.09 10^6/uL (4.70-6.10); Red Cell Distribution Width 14.6 % (11.0-15.0); White Blood Count 2.5 10^3/uL (4.0-11.0)
--- NOTE | 2022-07-20 06:37 | PC.NURSE ---
pt refuses to drink any measurable amount of fluid intake, his urine haschanged from drk yllw to brown. No IV fluids have been ordered for pt, fear of him pulling out IV lines and tubes, pt is confused and it comes and goes at times
[2022-07-20 06:55] LABS: Alanine Aminotransferase 45 U/L (16-63); Albumin Globulin Ratio 1.1; Albumin Level 3.4 g/dL (3.4-5.0); Alkaline Phosphatase 49 U/L (46-116); Anion Gap 18.3; Aspartate Amino Transferase 58 U/L (15-37); BUN Creatinine Ratio 39.3; Bilirubin Total 0.7 mg/dL (0.2-1.0); Calcium 8.5 mg/dL (8.5-10.1); Carbon Dioxide 20.7 mmol/L (21.0-32.0); Chloride 98 mmol/L (98-107); Estimated GFR (African America >60 (>=60); Estimated GFR (Non-African Ame >60 (>=60); Glucose 81 mg/dL (74-106); Sodium 133 mmol/L (136-145); Total Protein 6.4 g/dL (6.4-8.2)
[2022-07-20] MEDS: ENOXAPARIN SODIUM 40 MG/0.4 ML SYRINGE SUBQ (08:37)
[2022-07-20] MEDS: ASPIRIN 81 MG TABLET.DR PO (08:37)
[2022-07-20] MEDS: MULTIVITAMIN TABLET 400 TAB PO (08:37)
[2022-07-20] MEDS: ATORVASTATIN CALCIUM 40 MG TABLET 80 MG PO (08:37)
[2022-07-20] MEDS: CLOPIDOGREL BISULFATE 75 MG TABLET PO (08:37)
[2022-07-20] MEDS: LISINOPRIL 20 MG TABLET PO (08:38)
[2022-07-20] MEDS: AMLODIPINE BESYLATE 5 MG TABLET PO (08:38)
[2022-07-20 11:54] VITALS: BP 96/65; PULSE 68; RESP 18; TEMP 36.6; O2SAT 92
--- NOTE | 2022-07-20 11:56 | REH.PTDLY ---
Physical Therapy Daily Note PT Daily Note/Assess Start: 07/19/22 10:38 Freq: Status: Active Protocol: Document 07/20/22 11:30 INDRA (Rec: 07/20/22 11:55 INDRA [id number]) Physical Therapy Daily Note/Assessment Time In 11:05 Time Out 11:29 Pain Unresponsive Pain Unresponsive Subjective Pt does not respond when asked questions, just shrugs shoulders. Pt awake upon arrival Therapeutic Exercise Minutes (minutes) 7 Therapeutic Exercise Units 0 Therapeutic Exercise Treatment Instructed in B LE supine exs 8-10x ea AAROM today with pt being able to follow some cues with tactile assist. Therapeutic Activity Minutes (minutes) 10 Therapeutic Activity Units 1 Bed Mobility Ability Maximum Assist Chair Transfer Ability Maximum Assist Therapeutic Activity Comments Max A to bring legs to side of bed and Max A for supine to sit transfer. As pt is sitting bedside OT enters room to assist. Initially pt is a Max A to maintain seated balance, but then with several verbal and tactile cues pt is able to hold himself up CGA-Min A at times. Pt requires assist to don shoes. Cues for pt to stand upright with Max A x2 and assist to place hand on RW . Cues for pt to side step to the L with small movement noted. Pt unable to complete a full step, just slides foot. Pt then sits down and unable to stand again. Max A x2 for sit to supine transfer and bed mobility. Total Therapy Minutes 17 Total Physical Therapy Units 1 Daily Note Summary Mild improvement in seated balance, but pt continues to be a Max A x1-2 with transfers . Plan is for pt to be DC to [facility] for skilled care later today.
--- NOTE | 2022-07-20 12:27 | CM.NOTE ---
Rounds made with pattie Virgen for discharge today to [facility] for skilled therapy.
--- NOTE | 2022-07-20 12:28 | PM.DS1 ---
DS: Providers Provider Date of admission: 07/17/22 00:05 Primary care physician: Jacobo Cat DO Consults: 07/17/22 Occupational Therapy Eval and Treat Routine Physical Therapy Eval and Treat Routine 07/17/22 13:33 Occupational Therapy Eval and Treat Routine Physical Therapy Eval and Treat Routine Attending physician on discharge: Shaikh Carlita Discharging clinician: Shaikh Carlita Anticipated date of discharge: 07/20/22 DS: Diagnosis Discharge Diagnosis (1) Metabolic encephalopathy: Assessment and plan: resolved (2) COVID-19: Assessment and plan: No resp symptoms. Stop paxlovid on discharge (3) Hyponatremia with normal extracellular fluid volume: Assessment and plan: due to SIADH. Resolved with fluid restriction and salt tablets. (4) Hypertension: Assessment and plan: At goal. c/w home meds Qualifiers: Hypertension type: primary hypertension Qualified Code(s): I10 - Essential (primary) hypertension (5) CAD (coronary artery disease): Assessment and plan: Stable. CW ASA,plavix Qualifiers: Coronary Disease-Associated Artery/Lesion type: [place] artery [place] vs. transplanted heart: [place] heart Associated angina: without angina Qualified Code(s): I25.10 - Atherosclerotic heart disease of [place] coronary artery without angina pectoris (6) HLD (hyperlipidemia): Assessment and plan: c/w statin (7) Dementia: Assessment and plan: Back to baseline more or less. Qualifiers: Dementia type: Alzheimer's Alzheimer's disease onset: late onset Dementia severity: moderate Dementia behavioral or psychological symptom: with anxiety Qualified Code(s): G30.1 - Alzheimer's disease with late onset; F02.B4 - Dementia in other diseases classified elsewhere, moderate, with anxiety DS: Summary Hospital Course Hospital Course: Patient admitted for confusion, fever and weakness. Admitted for metabolic encephalopathy due to hypoantremia and COVID. No rep complaints. Received oral paxlovid for COVID. For hypoantremia - received oral salt tbs along with fluid restriction. Sodium levels more or less normal now Status at Discharge Overall status at discharge: patient is progressing back to baseline Time Spent with Patient Time attestation: Total time spent providing and/or coordinating discharge services: Time spent: greater than 30 minutes Quality: Stroke Symptom Onset Unknown: Yes Exam Constitutional Vital Signs - 24 hr 07/19/22 14:30 07/19/22 21:37 07/19/22 22:00 Temperature 98.2 F 98.1 F Pulse Rate 83 100 H Respiratory Rate 18 18 Blood Pressure [Left Arm] 100/61 116/65 Blood Pressure [Right Arm] Pulse Oximetry 95 95 94 L Oxygen Delivery Method Room Air Room Air Room Air 07/20/22 06:00 07/20/22 11:41 07/20/22 11:54 Temperature 97.7 F 97.8 F Pulse Rate 64 68 Respiratory Rate 18 18 Blood Pressure [Left Arm] Blood Pressure [Right Arm] 97/62 96/65 Pulse Oximetry 91 L 92 L Oxygen Delivery Method Room Air Room Air Room Air Documenting provider has reviewed patient's vital signs: yes Common normals: no apparent distress Exam limitations: altered mental status General appearance: comfortable Nutritional appearance: thin Orientation/consciousness: Yes awake HENMT Head and scalp: other (signs of recent head injury on left temporal region) Neck & C-Spine General: other (wearing a heard neck collar) Chest Chest: abnormal inspection of the chest (midline surgical scar from CABG) Respiratory Common normals: normal respiratory effort, no use of accessory muscles and clear to auscultation bilaterally Cardio Common normals: regular rate, regular rhythm, S1 normal heart sound and S2 normal heart sound GI Common normals: Normal to inspection, nondistended, normoactive bowel sounds present, soft to palpation, non-tender and no hepatosplenomegaly Extremity Common normals: normal to inspection and full ROM Neuro Common normals: moves all extremities and no focal motor deficits Sensorium/orientation: awake, oriented to person and orientation impaired (Disoriented to time and place.) Meningeal signs: no meningeal signs Psych Appearance: grossly normal Attitude: calm Mood and affect: irritable Thought process: confused and loose associations Memory/cognition: memory grossly impaired and cognition grossly impaired Insight: poor Judgement: poor DS: Data Data Completed and Pending Labs on day of discharge: Labs from last 24 hours 07/20/22 07/19/22 07/17/22 06:05 13:38 05:00 WBC 2.5 L RBC 4.09 L Hgb 12.9 L Hct 37.2 L MCV 91.0 MCH 31.5 MCHC 34.7 RDW 14.6 Plt Count 70 L MPV 10.2 Neut % (Auto) 54.6 Lymph % (Auto) 30.0 [place] % (Auto) 13.8 H Eos % (Auto) 0.8 L Baso % (Auto) 0.4 Neut # (Auto) 1.4 Lymph # (Auto) 0.7 L [place] # (Auto) 0.3 Eos # (Auto) 0.0 Baso # (Auto) 0.0 Abs Immat Gran (auto) 0.01 Imm/Tot Granulo (auto) 0.4 Sodium 133 L 131 L Potassium 4.0 3.8 Chloride 98 98 Carbon Dioxide 20.7 L 23.6 Anion Gap 18.3 13.2 BUN 24.0 H 21.0 H Creatinine 0.61 L 0.72 Est GFR ( Amer) >60 >60 Est GFR (Non-Af Amer) >60 >60 BUN/Creatinine Ratio 39.3 29.2 Glucose 81 86 Calcium 8.5 8.5 Total Bilirubin 0.7 AST 58 H ALT 45 Alkaline Phosphatase 49 Total Protein 6.4 Albumin 3.4 Globulin 3.0 Albumin/Globulin Ratio 1.1 Procalcitonin Cortisol AM Sample 14.8 07/16/22 18:05 WBC RBC Hgb Hct MCV MCH MCHC RDW Plt Count MPV Neut % (Auto) Lymph % (Auto) [place] % (Auto) Eos % (Auto) Baso % (Auto) Neut # (Auto) Lymph # (Auto) [place] # (Auto) Eos # (Auto) Baso # (Auto) Abs Immat Gran (auto) Imm/Tot Granulo (auto) Sodium Potassium Chloride Carbon Dioxide Anion Gap BUN Creatinine Est GFR ( Amer) Est GFR (Non-Af Amer) BUN/Creatinine Ratio Glucose Calcium Total Bilirubin AST ALT Alkaline Phosphatase Total Protein Albumin Globulin Albumin/Globulin Ratio Procalcitonin 0.04 Cortisol AM Sample Preliminary micro results at discharge 07/16/22 21:21 - Preliminary Blood 07/16/22 21:12 Blood Culture Result 1 - Preliminary Blood Discharge Plan Discharge Disposition: Xfer SNF Condition: Fair Discharge Medications: New sodium chloride 1,000 mg tablet,soluble 1,000 mg PO Q8H 30 Days Qty: 90 0RF Continued atorvastatin 80 mg tablet 80 mg PO QDAY clopidogrel 75 mg tablet 75 mg PO QDAY metoprolol succinate 25 mg tablet extended release 24 hr 25 mg PO Q12H amlodipine 5 mg tablet 5 mg PO QDAY lidocaine [Lidoderm] 5 % adhesive patch,medicated See Rx Instructions .ROUTE .COMPLEX Rx Instructions: leave on most painful area for up to 12 hrs hydrocodone-acetaminophen 5-325 mg tablet 1 tab PO Q6H PRN (Reason: pain) aspirin [Adult Low Dose Aspirin] 81 mg tablet,delayed release (DR/EC) 81 mg PO DAILY multivitamin [Daily Multi-Vitamin] Tablet 1 tab PO DAILY acetaminophen [Aphen] 325 mg tablet 650 mg PO Q6H PRN (Reason: fever or pain) lisinopril 20 mg tablet 20 mg PO DAILY Activity Restrictions/Additional Instructions: Fluid restrictions 1200ml/day F/u BMP in one week Forms: Portal Instructions Referrals: Jacobo Cat DO [Primary Care Provider] - 1 week
--- NOTE | 2022-07-20 13:42 | SWNOTE1 ---
Pt is ready for dc today. [facility] called and set up [facility]. [facility]A spoke with nursing and the daughter yesterday about stretcher transport. Daughter is ok with this. [facility] will be here at 2:45 to transport pt to go [facility] for rehab (skilled). ANYA notified nursing, pt's daughter and grand-daughter, and the facility. ANYA completed HENS and updated packet. DC orders sent to [facility].
[2022-07-20 14:34] VITALS: BP 102/67; PULSE 63; RESP 18; TEMP 36.5; O2SAT 91
[2022-07-22 09:11] LABS: Osmolality, Urine 707 mOsmol/kg (.)
== END 2022-07-20 15:20 | DRG 177 ==
LOC: ER 20:17 → MS 07-17 00:23
PROVIDERS: Emergency Medicine; Admitting Provider Internal Medicine; Emergency Provider Emergency Medicine; PCP Internal Medicine; Visit Provider Internal Medicine
DX: U07.1 COVID-19 (principal); G93.41 Metabolic encephalopathy; F02.B4 Dementia in other diseases classified elsewhere, moderate, with anxiety; E22.2 Syndrome of inappropriate secretion of antidiuretic hormone; S12.000D Unspecified displaced fracture of first cervical vertebra, subsequent encounter for fracture with routine healing; I10 Essential (primary) hypertension; I25.10 Atherosclerotic heart disease of native coronary artery without angina pectoris; E78.5 Hyperlipidemia, unspecified; G30.1 Alzheimer's disease with late onset; H91.90 Unspecified hearing loss, unspecified ear; Z87.891 Personal history of nicotine dependence; Z79.82 Long term (current) use of aspirin; Z79.02 Long term (current) use of antithrombotics/antiplatelets; Z79.899 Other long term (current) drug therapy; Z98.61 Coronary angioplasty status; Z95.1 Presence of aortocoronary bypass graft; Z91.81 History of falling; W19.XXXD Unspecified fall, subsequent encounter
CPT/HCPCS: 0202U; 36415; 70450; 71045; 80048; 80053; 81003; 82533; 83735; 83880; 83930; 83935; 84145; 84295; 84300; 84443; 84484; 84550; 85025; 85610; 85730; 86140; 87040; 93005; 94761; 96365; 96366; 96368; 96372; 97112; 97162; 97165; 97530; 99285; J0456

== ENCOUNTER 2022-08-08 09:06 | Outpatient (REF) | payer MEDICARE, SELFPAY ==
[2022-08-08 09:29] LABS: Anion Gap 10.1; BUN Creatinine Ratio 16.5; Calcium 8.6 mg/dL (8.5-10.1); Carbon Dioxide 28.6 mmol/L (21.0-32.0); Chloride 100 mmol/L (98-107); Estimated GFR (African America >60 (>=60); Estimated GFR (Non-African Ame >60 (>=60); Glucose 119 mg/dL (74-106); Potassium 3.7 mmol/L (3.5-5.1); Sodium 135 mmol/L (136-145)
== END 2022-08-08 09:07 | disposition home or self-care (01) ==
LOC: LAB 09:06
PROVIDERS: PCP Internal Medicine; Visit Provider Internal Medicine
DX: E87.1 Hypo-osmolality and hyponatremia (principal)
CPT/HCPCS: 36415; 80048

== ENCOUNTER 2023-01-06 12:40 | Outpatient (OUT) | payer MEDICARE, SELFPAY ==
[2023-01-06 13:04] LABS: Basophils Percent Auto 0.8 % (0.2-2.0); Eosinophils Absolute Auto 0.1 10^3/uL (0.0-0.7); Eosinophils Percent Auto 2.2 % (0.9-7.0); Hematocrit 38.3 % (42.0-54.0); Hemoglobin 12.9 g/dL (14.0-18.0); Immature Granulocytes Abs Auto 0.01 10^3/uL (0.00-0.03); Immature Granulocytes Pct Auto 0.2 % (0.0-0.5); Lymphocytes Percent Auto 19.7 % (20.5-60.0); Mean Corpuscular HGB Conc 33.7 g/dL (29.9-35.2); Mean Corpuscular Hemoglobin 32.7 pg (25.9-34.0); Mean Platelet Volume 9.6 fL (9.5-13.5); Monocytes Absolute Auto 0.6 10^3/uL (0.3-0.8); Monocytes Percent Auto 12.4 % (1.7-12.0); Neutrophils Absolute Auto 3.3 10^3/uL (1.4-6.5); Neutrophils Percent Auto 64.7 % (43.0-75.0); Platelet Count 81 10^3/uL (150-450); Red Blood Count 3.95 10^6/uL (4.70-6.10); White Blood Count 5.1 10^3/uL (4.0-11.0)
[2023-01-06 13:18] LABS: D Dimer 0.93 mg/L FEU (<=0.59)
[2023-01-06 13:30] LABS: Alanine Aminotransferase 37 U/L (16-63); Albumin Globulin Ratio 1.2; Albumin Level 4.4 g/dL (3.4-5.0); Alkaline Phosphatase 58 U/L (46-116); Anion Gap 11.5; Aspartate Amino Transferase 20 U/L (15-37); BUN Creatinine Ratio 21.1; Bilirubin Total 1.1 mg/dL (0.2-1.0); Calcium 8.8 mg/dL (8.5-10.1); Chloride 93 mmol/L (98-107); Estimated GFR (African America >60 (>=60); Estimated GFR (Non-African Ame >60 (>=60); Globulin 3.6 g/dL; Glucose 87 mg/dL (74-106); Potassium 4.5 mmol/L (3.5-5.1); Sodium 129 mmol/L (136-145); Thyroid Stimulating Hormone 6.336 uIU/mL (0.358-3.740)
== END 2023-01-06 12:41 | disposition home or self-care (01) ==
LOC: LAB 12:43
PROVIDERS: PCP Internal Medicine; Visit Provider Internal Medicine
DX: R06.01 Orthopnea (principal); R60.0 Localized edema; E11.42 Type 2 diabetes mellitus with diabetic polyneuropathy; I25.10 Atherosclerotic heart disease of native coronary artery without angina pectoris; R53.83 Other fatigue
CPT/HCPCS: 36415; 80053; 84443; 85025; 85378

== ENCOUNTER 2023-01-06 14:34 | Outpatient (OUT) | payer MEDICARE, SELFPAY ==
--- NOTE | 2023-01-06 14:52 | US_ITS ---
The [address] [address] Patient Name: JOVANNY EVANS MRN: [id number] date: 1940 Sex: M Assigned Patient Location: [facility] Current Patient Location: Accession/Order Number: [id number] Exam Date: 01/06/2023 14:55 Report Date: 01/07/2023 05:07 At the request of: JERMAN QUINN Procedure: US venous doppler LE BI EXAMINATION: US venous doppler LE BI HISTORY: Peripheral Edema R60.0 COMPARISON: No relevant comparison available. FINDINGS: REGION: Bilateral lower extremities THROMBI: None. COMPRESSIBILITY: Normal compressibility. FLOW: Normal waveform and antegrade flow between 5 and 20 cm/s. 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 Marked atherosclerotic plaque noted within right femoral artery US/US venous doppler LE BI IMPRESSION: 1. No deep vein thrombus within the right or left lower extremities. 2. 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 3. Marked atherosclerotic disease noted within right femoral artery. Electronically authenticated by: JOSSIE WALKER Date: 01/07/2023 05:07
== END 2023-01-06 14:35 | disposition home or self-care (01) ==
PROVIDERS: PCP Internal Medicine; Visit Provider Internal Medicine
DX: R60.0 Localized edema (principal); I70.201 Unspecified atherosclerosis of native arteries of extremities, right leg
CPT/HCPCS: 93970

== ENCOUNTER 2023-01-25 13:29 | Emergency (ER) | payer MEDICARE, SELFPAY ==
[2023-01-25 13:42] VITALS: BP 138/72; PULSE 74; RESP 18; TEMP 36.7; O2SAT 99; BMI 19.2
--- NOTE | 2023-01-25 14:00 | XR_ITS ---
The [address] [address] Patient Name: JOVANNY EVANS MRN: [id number] date: 1940 Sex: M Assigned Patient Location: ER Current Patient Location: ER Accession/Order Number: [id number] Exam Date: 01/25/2023 14:27 Report Date: 01/25/2023 15:01 At the request of: ROSSANA ODELL Procedure: XR hip RT 2V w/ pelvis EXAM: XR hip RT 2V w/ pelvis HISTORY: unknown injury COMPARISON: None. TECHNIQUE: Single view of the pelvis, 2 views of the right hip FINDINGS: No acute fracture or dislocation. Mild degenerative change of the hips bilaterally. Procedure changes project over the pelvis/prostate, and left proximal thigh. Vascular calcifications are noted. XR/XR hip RT 2V w/ pelvis IMPRESSION: No acute osseous abnormality. Electronically authenticated by: VIOLET TOBIAS Date: 01/25/2023 15:01
--- NOTE | 2023-01-25 14:06 | ED_ITS ---
Documented by User: Stormy Pruitt 01/25/23 16:02 HPI - Back Pain/Injury General Chief Complaint: Back Pain/Injury Stated Complaint: HIP PAIN Time Seen by Provider: 01/25/23 14:03 Source: patient Mode of arrival: walk-in Limitations: physical limitation History of Present Illness HPI Narrative: 82 year old male presents to the ED for lower back and right lateral hip pain. Onset was this morning. He denies falling, injury. Daughter states when she arrived at his resident he was standing awkwardly which made her believe he may have fallen. He pain has decreased. Denies weakness, N/T to his legs. Denies urinary sx. Rates his pain 4/10 at this time. Related Data Home Medications Medication Instructions Recorded Confirmed atorvastatin 80 mg tablet 80 mg PO QDAY 07/11/22 07/16/22 clopidogrel 75 mg tablet 75 mg PO QDAY 07/11/22 07/16/22 metoprolol succinate 25 mg 25 mg PO Q12H 07/11/22 07/16/22 tablet,extended release 24 hr acetaminophen 325 mg tablet (Aphen) 650 mg PO Q6H PRN fever or pain 07/16/22 07/16/22 amlodipine 5 mg tablet 5 mg PO QDAY 07/16/22 07/16/22 aspirin 81 mg tablet,delayed 81 mg PO DAILY 07/16/22 07/16/22 release (Adult Low Dose Aspirin) hydrocodone 5 mg-acetaminophen 325 1 tab PO Q6H PRN pain 07/16/22 07/16/22 mg tablet lidocaine 5 % topical patch See Rx Instructions topical 07/16/22 07/16/22 (Lidoderm) .COMPLEX multivitamin (Daily Multi-Vitamin 1 tab PO DAILY 07/16/22 07/16/22 tablet) lisinopril 20 mg tablet 20 mg PO DAILY 07/17/22 07/17/22 Previous Rx's Medication Instructions Recorded sodium chloride 1,000 mg soluble 1,000 mg PO Q8H 30 days #90 tabs 07/20/22 tablet Allergies Allergy/AdvReac Type Severity Reaction Status Date / Time No Known Drug Allergies Allergy Verified 07/16/22 17:52 Review of Systems ROS Constitutional Denies: fever or chills Cardiovascular Denies: chest pain Respiratory Denies: shortness of breath Gastrointestinal Denies: abdominal pain Genitourinary Denies: painful urination, urinary frequency, urinary urgency or blood in urine Musculoskeletal Reports: back pain and joint pain; Denies: neck pain Integumentary/Breast Denies: rash Neurological Denies: headache, numbness in extremities, weakness in extremities or lack of coordination PFSH [facility] Medical History (Updated 01/25/23 @ 15:13 by Stormy Pruitt) Dementia ?F03.90 - Unspecified dementia, unspecified severity, without behavioral disturbance, psychotic disturbance, mood disturbance, and anxiety (ICD-10) HLD (hyperlipidemia) ?E78.5 - Hyperlipidemia, unspecified (ICD-10) CAD (coronary artery disease) ?I25.10 - Atherosclerotic heart disease of [place] coronary artery without angina pectoris (ICD-10) COVID-19 ?U07.1 - COVID-19 (ICD-10) Pneumonia ?J18.9 - Pneumonia, unspecified organism (ICD-10) AMS (altered mental status) ?R41.82 - Altered mental status, unspecified (ICD-10) Hyponatremia ?E87.1 - Hypo-osmolality and hyponatremia (ICD-10) Tuberculosis ?A15.9 - Respiratory tuberculosis unspecified (ICD-10) Hard of hearing ?H91.90 - Unspecified hearing loss, unspecified ear (ICD-10) Cardiac disease ?I51.9 - Heart disease, unspecified (ICD-10) Abrasion of elbow, left ?S50.312A - Abrasion of left elbow, initial encounter (ICD-10) C1 cervical fracture ?S12.000A - Unspecified displaced fracture of first cervical vertebra, initial encounter for closed fracture (ICD-10) Bursitis of left elbow ?M70.32 - Other bursitis of elbow, left elbow (ICD-10) Closed head injury ?S09.90XA - Unspecified injury of head, initial encounter (ICD-10) Hypertension ?I10 - Essential (primary) hypertension (ICD-10) Surgical History (Updated 07/17/22 @ 00:14 by Georgina Crook) History of back surgery ?Z98.890 - Other specified postprocedural states (ICD-10) Hx of CABG ?Z95.1 - Presence of aortocoronary bypass graft (ICD-10) H/O heart artery stent ?Z95.5 - Presence of coronary angioplasty implant and graft (ICD-10) Social History (Updated 07/17/22 @ 00:17 by Georgina Crook) Within the past year, how often did you have a drink containing alcohol: never Score interpretation: A score less than 4 is consistent with normal alcohol consumption. Smoking status: Never smoker Non-prescribed substance use: denies use Previous occupational history: retired Known occupational exposures/hazards: No Highest level of school completed/degree received: high school graduate Are you now , , , , never or living with a partner: don't know In a typical week, how many times do you talk on the telephone with family, friends, or neighbors: 3 or more times per week How often do you get together with friends or relatives: 3 or more times per week How often do you attend sabianism or christian services: 4 or more times per year Do you belong to any clubs or organizations such as sabianism groups unions, [employer] or athletic groups, or school groups: no Total score: 2 Score interpretation: A score of greater than or equal to 2 indicates the lowest level of social isolation. Little interest or pleasure in doing things: not at all Feeling down, depressed, or hopeless: not at all Feel stressed/tense/nervous/anxious/difficulty sleeping: not at all Due to disability, difficulty making decisions: Yes Do you think of yourself as: straight/heterosexual Gender Identity: male Exam Constitutional Vital Signs, click to edit/add: Last Vital Signs Temp 98.0 F 01/25/23 13:42 Pulse 74 01/25/23 13:42 Resp 18 01/25/23 15:43 BP 138/72 01/25/23 13:42 Pulse Ox 99 01/25/23 15:43 O2 Del Method Room Air 01/25/23 15:43 Common normals: no apparent distress and oriented x3 General appearance: cooperative; not ill appearing Eye Common normals: conjunctivae normal and no scleral icterus Neck & C-Spine Common normals: supple Chest Chest: symmetrical chest wall rise Respiratory Common normals: normal respiratory effort Effort & inspection: symmetric chest movement Cardio Common normals: regular rate Peripheral pulses: posterior tibial pulses present Back & Pelvis Thoracic spine/upper back: normal to inspection Lumbar spine/lower back: normal to inspection and paraspinal muscle tenderness Lumbar paraspinal muscle tenderness: right; no lumbar spinal tenderness Sacrum: no ecchymosis, no erythema, no swelling and no tenderness Coccyx: no swelling and no tenderness Extremity Right lower extremity: hip joint Right hip: inspection (No bruising, abrasion, erythema, swelling, or deformity noted. ), palpation (Mild lateral tenderness. ) and neurovascular exam Neuro Common normals: oriented x3 Sensorium/orientation: awake and alert Sensory exam: extremities (Distal sensation intact. ) Course Vital Signs Vital signs: Vital Signs Temperature 98.0 F 01/25/23 13:42 Pulse Rate 74 01/25/23 13:42 Respiratory Rate 18 01/25/23 13:42 Blood Pressure 138/72 01/25/23 13:42 Pulse Oximetry 99 01/25/23 13:42 Oxygen Delivery Method Room Air 01/25/23 13:42 Temperature 98.0 F 01/25/23 13:42 Pulse Rate 74 01/25/23 13:42 Respiratory Rate 18 01/25/23 15:43 Blood Pressure 138/72 01/25/23 13:42 Pulse Oximetry 99 01/25/23 15:43 Oxygen Delivery Method Room Air 01/25/23 15:43 MDM - Back Pain/Injury MDM Narrative Medical decision making narrative: Imaging was negative for acute findings. Findings were discussed with the patient and his daughter. He denied pain prior to discharge. Gait was steady. He was encouraged to follow up with his family physician for a recheck, further evaluation and treatment. Return precautions were discussed. Medical Records Attestation: I reviewed the patient's medical records. Imaging Data XR right hip/pelvis: Attestation: I have reviewed the pertinent imaging results. Radiologist's impression: Procedure: XR hip RT 2V w/ pelvis EXAM: XR hip RT 2V w/ pelvis HISTORY: unknown injury COMPARISON: None. TECHNIQUE: Single view of the pelvis, 2 views of the right hip FINDINGS: No acute fracture or dislocation. Mild degenerative change of the hips bilaterally. Procedure changes project over the pelvis/prostate, and left proximal thigh. Vascular calcifications are noted. XR/XR hip RT 2V w/ pelvis IMPRESSION: No acute osseous abnormality. Electronically authenticated by: VIOLET TOIBAS Date: 01/25/2023 15:01 XR lumbar spine: Attestation: I have reviewed the pertinent imaging results. Radiologist's impression: Procedure: XR lumbar spine 2-3V EXAMINATION: XR lumbar spine 2-3V, 01/25/2023 2:27 PM EST HISTORY: pain COMPARISON: CT 12/30/2020 TECHNIQUE: 3 views of the lumbar spine. FINDINGS: There are five lumbar-type vertebral bodies. Unchanged chronic compression deformity of the L1 vertebral body, with associated vertebroplasty change. Vertebral body heights are otherwise maintained without acute fracture. Mild dextrocurvature of the lumbar spine, could in part related to patient positioning; no significant zohra or retrolisthesis. Multilevel intervertebral disc height loss and degenerative endplate, multilevel bilateral facet hypertrophy, similar to previous CT. 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 The SI joints are symmetric. Vascular calcifications are noted. XR/XR lumbar spine 2-3V IMPRESSION: 1. No acute fracture or traumatic malalignment. 2. Unchanged chronic compression deformity of the L1 vertebral body, with associated vertebroplasty change. 3. Degenerative change Electronically authenticated by: VIOLET TOBIAS Date: 01/25/2023 15:05 Discharge Plan Discharge Chief Complaint: Back Pain/Injury Clinical Impression: Low back pain, Hip pain, right Patient Disposition: Home, Self-Care Time of Disposition Decision: 15:13 Condition: Good Mode of Transportation: Private Vehicle Prescriptions / Home Meds: No Action atorvastatin 80 mg tablet 80 mg PO QDAY clopidogrel 75 mg tablet 75 mg PO QDAY metoprolol succinate 25 mg tablet extended release 24 hr 25 mg PO Q12H amlodipine 5 mg tablet 5 mg PO QDAY lidocaine [Lidoderm] 5 % adhesive patch,medicated See Rx Instructions .ROUTE .COMPLEX Rx Instructions: leave on most painful area for up to 12 hrs hydrocodone-acetaminophen 5-325 mg tablet 1 tab PO Q6H PRN (Reason: pain) aspirin [Adult Low Dose Aspirin] 81 mg tablet,delayed release (DR/EC) 81 mg PO DAILY multivitamin [Daily Multi-Vitamin] Tablet 1 tab PO DAILY acetaminophen [Aphen] 325 mg tablet 650 mg PO Q6H PRN (Reason: fever or pain) lisinopril 20 mg tablet 20 mg PO DAILY sodium chloride 1,000 mg tablet,soluble 1,000 mg PO Q8H 30 Days Qty: 90 0RF Instructions: Acute Low Back Pain (ED), Hip Pain (ED) Stand Alone Forms: Portal Instructions Referrals: Jacobo Cat DO [Primary Care Provider] - 1 week Discharge Date/Time: 01/25/23 15:44 Documented by User: Huseyin Park MD 01/25/23 19:34 HPI - Back Pain/Injury General Chief Complaint: Back Pain/Injury Stated Complaint: HIP PAIN Time Seen by Provider: 01/25/23 14:03 Related Data Home Medications Medication Instructions Recorded Confirmed atorvastatin 80 mg tablet 80 mg PO QDAY 07/11/22 07/16/22 clopidogrel 75 mg tablet 75 mg PO QDAY 07/11/22 07/16/22 metoprolol succinate 25 mg 25 mg PO Q12H 07/11/22 07/16/22 tablet,extended release 24 hr acetaminophen 325 mg tablet (Aphen) 650 mg PO Q6H PRN fever or pain 07/16/22 07/16/22 amlodipine 5 mg tablet 5 mg PO QDAY 07/16/22 07/16/22 aspirin 81 mg tablet,delayed 81 mg PO DAILY 07/16/22 07/16/22 release (Adult Low Dose Aspirin) hydrocodone 5 mg-acetaminophen 325 1 tab PO Q6H PRN pain 07/16/22 07/16/22 mg tablet lidocaine 5 % topical patch See Rx Instructions topical 07/16/22 07/16/22 (Lidoderm) .COMPLEX multivitamin (Daily Multi-Vitamin 1 tab PO DAILY 07/16/22 07/16/22 tablet) lisinopril 20 mg tablet 20 mg PO DAILY 07/17/22 07/17/22 Previous Rx's Medication Instructions Recorded sodium chloride 1,000 mg soluble 1,000 mg PO Q8H 30 days #90 tabs 07/20/22 tablet Allergies Allergy/AdvReac Type Severity Reaction Status Date / Time No Known Drug Allergies Allergy Verified 07/16/22 17:52 PFSH PFS Medical History (Updated 01/25/23 @ 15:13 by Stormy Pruitt) Dementia ?F03.90 - Unspecified dementia, unspecified severity, without behavioral disturbance, psychotic disturbance, mood disturbance, and anxiety (ICD-10) HLD (hyperlipidemia) ?E78.5 - Hyperlipidemia, unspecified (ICD-10) CAD (coronary artery disease) ?I25.10 - Atherosclerotic heart disease of [place] coronary artery without angina pectoris (ICD-10) COVID-19 ?U07.1 - COVID-19 (ICD-10) Pneumonia ?J18.9 - Pneumonia, unspecified organism (ICD-10) AMS (altered mental status) ?R41.82 - Altered mental status, unspecified (ICD-10) Hyponatremia ?E87.1 - Hypo-osmolality and hyponatremia (ICD-10) Tuberculosis ?A15.9 - Respiratory tuberculosis unspecified (ICD-10) Hard of hearing ?H91.90 - Unspecified hearing loss, unspecified ear (ICD-10) Cardiac disease ?I51.9 - Heart disease, unspecified (ICD-10) Abrasion of elbow, left ?S50.312A - Abrasion of left elbow, initial encounter (ICD-10) C1 cervical fracture ?S12.000A - Unspecified displaced fracture of first cervical vertebra, initial encounter for closed fracture (ICD-10) Bursitis of left elbow ?M70.32 - Other bursitis of elbow, left elbow (ICD-10) Closed head injury ?S09.90XA - Unspecified injury of head, initial encounter (ICD-10) Hypertension ?I10 - Essential (primary) hypertension (ICD-10) Surgical History (Updated 07/17/22 @ 00:14 by Georgina Crook) History of back surgery ?Z98.890 - Other specified postprocedural states (ICD-10) Hx of CABG ?Z95.1 - Presence of aortocoronary bypass graft (ICD-10) H/O heart artery stent ?Z95.5 - Presence of coronary angioplasty implant and graft (ICD-10) Social History (Updated 07/17/22 @ 00:17 by Georgina Crook) Within the past year, how often did you have a drink containing alcohol: never Score interpretation: A score less than 4 is consistent with normal alcohol consumption. Smoking status: Never smoker Non-prescribed substance use: denies use Previous occupational history: retired Known occupational exposures/hazards: No Highest level of school completed/degree received: high school graduate Are you now , , , , never or living with a partner: don't know In a typical week, how many times do you talk on the telephone with family, friends, or neighbors: 3 or more times per week How often do you get together with friends or relatives: 3 or more times per week How often do you attend sabianism or christian services: 4 or more times per year Do you belong to any clubs or organizations such as sabianism groups unions, fraternal or athletic groups, or school groups: no Total score: 2 Score interpretation: A score of greater than or equal to 2 indicates the lowest level of social isolation. Little interest or pleasure in doing things: not at all Feeling down, depressed, or hopeless: not at all Feel stressed/tense/nervous/anxious/difficulty sleeping: not at all Due to disability, difficulty making decisions: Yes Do you think of yourself as: straight/heterosexual Gender Identity: male Exam Constitutional Vital Signs, click to edit/add: Last Vital Signs Temp 98.0 F 01/25/23 13:42 Pulse 74 01/25/23 13:42 Resp 18 01/25/23 15:43 BP 138/72 01/25/23 13:42 Pulse Ox 99 01/25/23 15:43 O2 Del Method Room Air 01/25/23 15:43 Course Vital Signs Vital signs: Vital Signs Temperature 98.0 F 01/25/23 13:42 Pulse Rate 74 01/25/23 13:42 Respiratory Rate 18 01/25/23 13:42 Blood Pressure 138/72 01/25/23 13:42 Pulse Oximetry 99 01/25/23 13:42 Oxygen Delivery Method Room Air 01/25/23 13:42 Temperature 98.0 F 01/25/23 13:42 Pulse Rate 74 01/25/23 13:42 Respiratory Rate 18 01/25/23 15:43 Blood Pressure 138/72 01/25/23 13:42 Pulse Oximetry 99 01/25/23 15:43 Oxygen Delivery Method Room Air 01/25/23 15:43 MDM - Back Pain/Injury MDM Narrative Medical decision making narrative: Imaging was negative for acute findings. Findings were discussed with the patient and his daughter. He denied pain prior to discharge. Gait was steady. He was encouraged to follow up with his family physician for a recheck, further evaluation and treatment. Return precautions were discussed. I, Dr Park, have reviewed the above progress note and course of action in the ER; agree with the above. I have personally seen and evaluated this patient, gone over history and physical, and discussed disposition and treatment plan with the patient. Discharge Plan Discharge Chief Complaint: Back Pain/Injury Clinical Impression: Low back pain, Hip pain, right Patient Disposition: Home, Self-Care Time of Disposition Decision: 15:13 Condition: Good Mode of Transportation: Private Vehicle Prescriptions / Home Meds: No Action atorvastatin 80 mg tablet 80 mg PO QDAY clopidogrel 75 mg tablet 75 mg PO QDAY metoprolol succinate 25 mg tablet extended release 24 hr 25 mg PO Q12H amlodipine 5 mg tablet 5 mg PO QDAY lidocaine [Lidoderm] 5 % adhesive patch,medicated See Rx Instructions .ROUTE .COMPLEX Rx Instructions: leave on most painful area for up to 12 hrs hydrocodone-acetaminophen 5-325 mg tablet 1 tab PO Q6H PRN (Reason: pain) aspirin [Adult Low Dose Aspirin] 81 mg tablet,delayed release (DR/EC) 81 mg PO DAILY multivitamin [Daily Multi-Vitamin] Tablet 1 tab PO DAILY acetaminophen [Aphen] 325 mg tablet 650 mg PO Q6H PRN (Reason: fever or pain) lisinopril 20 mg tablet 20 mg PO DAILY sodium chloride 1,000 mg tablet,soluble 1,000 mg PO Q8H 30 Days Qty: 90 0RF Instructions: Acute Low Back Pain (ED), Hip Pain (ED) Stand Alone Forms: Portal Instructions Referrals: Jacobo Cat DO [Primary Care Provider] - 1 week Discharge Date/Time: 01/25/23 15:44
--- NOTE | 2023-01-25 14:06 | XR_ITS ---
The [place] [address] Patient Name: JOVANNY EVANS MRN: [id number] date: 1940 Sex: M Assigned Patient Location: ER Current Patient Location: ER Accession/Order Number: [id number] Exam Date: 01/25/2023 14:27 Report Date: 01/25/2023 15:05 At the request of: LIZZETTE GREWAL Procedure: XR lumbar spine 2-3V EXAMINATION: XR lumbar spine 2-3V, 01/25/2023 2:27 PM EST HISTORY: pain COMPARISON: CT 12/30/2020 TECHNIQUE: 3 views of the lumbar spine. FINDINGS: There are five lumbar-type vertebral bodies. Unchanged chronic compression deformity of the L1 vertebral body, with associated vertebroplasty change. Vertebral body heights are otherwise maintained without acute fracture. Mild dextrocurvature of the lumbar spine, could in part related to patient positioning; no significant zohra or retrolisthesis. Multilevel intervertebral disc height loss and degenerative endplate, multilevel bilateral facet hypertrophy, similar to previous CT. 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 The SI joints are symmetric. Vascular calcifications are noted. XR/XR lumbar spine 2-3V IMPRESSION: 1. No acute fracture or traumatic malalignment. 2. Unchanged chronic compression deformity of the L1 vertebral body, with associated vertebroplasty change. 3. Degenerative change Electronically authenticated by: VIOLET TOBIAS Date: 01/25/2023 15:05
[2023-01-25 15:43] VITALS: RESP 18; O2SAT 99
== END 2023-01-25 15:44 | disposition home or self-care (01) ==
PROVIDERS: Emergency Provider Emergency Medicine; PCP Internal Medicine
DX: M54.50 Low back pain, unspecified (principal); M25.551 Pain in right hip; F03.90 Unspecified dementia, unspecified severity, without behavioral disturbance, psychotic disturbance, mood disturbance, and anxiety; E78.5 Hyperlipidemia, unspecified; I25.10 Atherosclerotic heart disease of native coronary artery without angina pectoris; Z86.16 Personal history of COVID-19; Z87.01 Personal history of pneumonia (recurrent); Z86.11 Personal history of tuberculosis; I10 Essential (primary) hypertension; Z95.5 Presence of coronary angioplasty implant and graft; Z95.1 Presence of aortocoronary bypass graft; Z98.890 Other specified postprocedural states
CPT/HCPCS: 72100; 73502; 99283

== ENCOUNTER 2023-04-18 08:17 | Outpatient (OUT) | payer MEDICARE, SELFPAY ==
[2023-04-18 07:09] LABS: Basophils Percent Auto 0.6 % (0.2-2.0); Eosinophils Absolute Auto 0.1 10^3/uL (0.0-0.7); Eosinophils Percent Auto 2.9 % (0.9-7.0); Hematocrit 34.6 % (42.0-54.0); Hemoglobin 11.8 g/dL (14.0-18.0); Immature Granulocytes Abs Auto 0.01 10^3/uL (0.00-0.03); Immature Granulocytes Pct Auto 0.2 % (0.0-0.5); Lymphocytes Absolute Auto 1.4 10^3/uL (1.2-3.8); Lymphocytes Percent Auto 28.4 % (20.5-60.0); Mean Corpuscular HGB Conc 34.1 g/dL (29.9-35.2); Mean Corpuscular Hemoglobin 34.1 pg (25.9-34.0); Mean Platelet Volume 10.5 fL (9.5-13.5); Monocytes Absolute Auto 0.5 10^3/uL (0.3-0.8); Monocytes Percent Auto 10.3 % (1.7-12.0); Neutrophils Absolute Auto 2.7 10^3/uL (1.4-6.5); Neutrophils Percent Auto 57.6 % (43.0-75.0); Platelet Count 59 10^3/uL (150-450); Red Blood Count 3.46 10^6/uL (4.70-6.10); White Blood Count 4.8 10^3/uL (4.0-11.0)
[2023-04-18 07:30] LABS: Alanine Aminotransferase 33 U/L (16-63); Albumin Globulin Ratio 1.3; Albumin Level 4.2 g/dL (3.4-5.0); Alkaline Phosphatase 54 U/L (46-116); Aspartate Amino Transferase 23 U/L (15-37); BUN Creatinine Ratio 17.2; Calcium 8.8 mg/dL (8.5-10.1); Carbon Dioxide 27.2 mmol/L (21.0-32.0); Chloride 94 mmol/L (98-107); Chol HDL Ratio 1.8; Cholesterol 100 mg/dL (<=200); Estimated GFR (African America >60 (>=60); Estimated GFR (Non-African Ame >60 (>=60); Globulin 3.2 g/dL; Glucose 87 mg/dL (74-106); HDL Cholesterol 56 mg/dL (40-60); LDL Cholesterol Calculated 31.4 mg/dL; Potassium 4.2 mmol/L (3.5-5.1); Sodium 131 mmol/L (136-145); Thyroid Stimulating Hormone 7.391 uIU/mL (0.358-3.740); Total Protein 7.4 g/dL (6.4-8.2); Triglycerides 63 mg/dL (<=150); VLDL CHOLESTEROL 12.6 mg/dL
[2023-04-20 04:07] LABS: Vitamin B12 1240 pg/mL (232-1245)
== END 2023-04-18 08:18 | disposition home or self-care (01) ==
PROVIDERS: PCP Internal Medicine; Visit Provider Internal Medicine
DX: R05.2 Subacute cough (principal); E11.65 Type 2 diabetes mellitus with hyperglycemia; I10 Essential (primary) hypertension; G31.84 Mild cognitive impairment of uncertain or unknown etiology; I25.10 Atherosclerotic heart disease of native coronary artery without angina pectoris; R53.83 Other fatigue; E78.00 Pure hypercholesterolemia, unspecified
CPT/HCPCS: 36415; 80053; 80061; 82607; 82746; 84443; 85025

== ENCOUNTER 2023-06-09 08:03 | Outpatient (OUT) | payer MEDICARE, SELFPAY ==
[2023-06-09 08:49] LABS: Hematocrit 33.6 % (42.0-54.0); Hemoglobin 11.5 g/dL (14.0-18.0); Mean Corpuscular HGB Conc 34.2 g/dL (29.9-35.2); Mean Corpuscular Hemoglobin 33.9 pg (25.9-34.0); Mean Corpuscular Volume 99.1 fL (80.0-94.0); Mean Platelet Volume 12.2 fL (9.5-13.5); Platelet Count 54 10^3/uL (150-450); Red Blood Count 3.39 10^6/uL (4.70-6.10); Red Cell Distribution Width 15.9 % (11.0-15.0); White Blood Count 3.8 10^3/uL (4.0-11.0)
[2023-06-09 09:29] LABS: Percent Iron Saturation 30.4 %
[2023-06-09 09:39] LABS: Thyroid Stimulating Hormone 5.009 uIU/mL (0.358-3.740)
[2023-06-09 09:53] LABS: Free T4 0.82 ng/dL (0.76-1.46)
[2023-06-09 11:00] LABS: Band Neutrophils Absolute 0.2 10^3/uL (0.0-0.3); Segmented Neut Absolute Manual 2.05 10^3/uL (1.4-6.5)
[2023-06-09 11:01] LABS: Basophils Abs Manual 0.07 10^3/uL (0.00-0.10); Eosinophils Absolute Manual 0.07 10^3/uL (0.00-0.70); Monocytes Absolute Manual 0.34 10^3/uL (0.30-0.80)
[2023-06-10 04:08] LABS: Triiodothyronine (T3) 109 ng/dL (71-180)
== END 2023-06-09 08:04 | disposition home or self-care (01) ==
PROVIDERS: PCP Internal Medicine; Visit Provider Internal Medicine
DX: D64.9 Anemia, unspecified (principal); R79.89 Other specified abnormal findings of blood chemistry; F02.A2 Dementia in other diseases classified elsewhere, mild, with psychotic disturbance; G31.83 Neurocognitive disorder with Lewy bodies
CPT/HCPCS: 36415; 82607; 82728; 82746; 83540; 83550; 84439; 84443; 84480; 85007; 85027

== ENCOUNTER 2023-07-19 07:49 | Outpatient (OUT) | payer MEDICARE, SELFPAY ==
[2023-07-19 08:31] LABS: Hematocrit 34.5 % (42.0-54.0); Hemoglobin 11.5 g/dL (14.0-18.0); Mean Corpuscular HGB Conc 33.3 g/dL (29.9-35.2); Mean Corpuscular Hemoglobin 32.7 pg (25.9-34.0); Mean Platelet Volume 9.9 fL (9.5-13.5); Platelet Count 46 10^3/uL (150-450); Red Blood Count 3.52 10^6/uL (4.70-6.10); Red Cell Distribution Width 17.8 % (11.0-15.0); White Blood Count 4.2 10^3/uL (4.0-11.0)
[2023-07-19 10:04] LABS: Thyroid Stimulating Hormone 5.602 uIU/mL (0.358-3.740)
[2023-07-19 11:30] LABS: Free T4 0.92 ng/dL (0.76-1.46)
[2023-07-19 12:32] LABS: Acanthocytes 1+; Anisocytosis 1+; Eosinophils Absolute Manual 0.21 10^3/uL (0.00-0.70); Monocytes Absolute Manual 0.21 10^3/uL (0.30-0.80); Segmented Neut Absolute Manual 2.77 10^3/uL (1.4-6.5)
[2023-07-20 04:07] LABS: Triiodothyronine (T3) 124 ng/dL (71-180)
== END 2023-07-19 07:50 | disposition home or self-care (01) ==
LOC: LAB 07:51
PROVIDERS: PCP Internal Medicine; Visit Provider Internal Medicine
DX: R79.89 Other specified abnormal findings of blood chemistry (principal); D61.818 Other pancytopenia
CPT/HCPCS: 36415; 84439; 84443; 84480; 85007; 85027

== ENCOUNTER 2023-08-22 07:45 | Outpatient (RCR) | payer MEDICARE, SELFPAY ==
[2023-08-22 15:18] LABS: Basophils Percent Auto 0.6 % (0.2-2.0); Eosinophils Absolute Auto 0.1 10^3/uL (0.0-0.7); Eosinophils Percent Auto 2.4 % (0.9-7.0); Hematocrit 32.2 % (42.0-54.0); Hemoglobin 10.8 g/dL (14.0-18.0); Immature Granulocytes Abs Auto 0.02 10^3/uL (0.00-0.03); Immature Granulocytes Pct Auto 0.6 % (0.0-0.5); Lymphocytes Absolute Auto 0.8 10^3/uL (1.2-3.8); Lymphocytes Percent Auto 23.1 % (20.5-60.0); Mean Corpuscular HGB Conc 33.5 g/dL (29.9-35.2); Mean Corpuscular Hemoglobin 32.7 pg (25.9-34.0); Mean Corpuscular Volume 97.6 fL (80.0-94.0); Monocytes Absolute Auto 0.4 10^3/uL (0.3-0.8); Monocytes Percent Auto 12.4 % (1.7-12.0); Neutrophils Absolute Auto 2.1 10^3/uL (1.4-6.5); Neutrophils Percent Auto 60.9 % (43.0-75.0); Red Cell Distribution Width 17.9 % (11.0-15.0); Reticulocyte Pct Auto 1.37 % (0.60-3.10); White Blood Count 3.4 10^3/uL (4.0-11.0)
[2023-08-22 15:30] LABS: Erythrocyte Sedimentation Rate 8 mm/hr (<=20)
[2023-08-22 15:47] LABS: Platelet Count 56 10^3/uL (150-450)
[2023-08-22 16:41] LABS: C Reactive Protein <0.50 mg/dL (<=0.50)
[2023-08-24 16:10] LABS: Albumin 4.1 g/dL (2.9-4.4); Alpha-1-Globulin 0.3 g/dL (0.0-0.4); Alpha-2-Globulin 0.6 g/dL (0.4-1.0); Free Kappa Lt Chains,S 16.8 mg/L (3.3-19.4); Free Lambda Lt Chains,S 9.8 mg/L (5.7-26.3); Gamma Globulin 1.1 g/dL (0.4-1.8); Immunoglobulin A, Qn, Serum 165 mg/dL (61-437); Immunoglobulin G, Qn, Serum 1079 mg/dL (603-1613); Immunoglobulin M, Qn, Serum 52 mg/dL (15-143); Kappa/Lambda Ratio,S 1.71 (0.26-1.65); Protein, Total 6.8 g/dL (6.0-8.5)
== END 2023-09-06 23:59 | disposition home or self-care (01) ==
LOC: HEMC 07:45
PROVIDERS: PCP Internal Medicine; Visit Provider Internal Medicine Hematology & Oncology
DX: D72.810 Lymphocytopenia (principal); D64.9 Anemia, unspecified; D69.6 Thrombocytopenia, unspecified; D72.819 Decreased white blood cell count, unspecified; Z86.16 Personal history of COVID-19; Z87.891 Personal history of nicotine dependence; F03.90 Unspecified dementia, unspecified severity, without behavioral disturbance, psychotic disturbance, mood disturbance, and anxiety; M54.9 Dorsalgia, unspecified; G89.29 Other chronic pain; R63.4 Abnormal weight loss; I25.10 Atherosclerotic heart disease of native coronary artery without angina pectoris; Z79.02 Long term (current) use of antithrombotics/antiplatelets
CPT/HCPCS: 36415; 82784; 83521; 84155; 84165; 85025; 85045; 85652; 86140; G0463

== ENCOUNTER 2023-08-29 10:34 | Emergency (ER) | payer MEDICARE, SELFPAY ==
[2023-08-29] VITALS (17 sets, daily range): BP systolic 136–159; BP diastolic 61–84; PULSE 43–66; TEMP 37.1; O2SAT 94–100; BMI 20.1
--- NOTE | 2023-08-29 10:48 | ECG_ITS ---
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
--- NOTE | 2023-08-29 10:49 | XR_ITS ---
The [address] [address] Patient Name: JOVANNY EVANS MRN: [id number] date: 1940 Sex: M Assigned Patient Location: ER Current Patient Location: ER Accession/Order Number: [id number] Exam Date: 08/29/2023 11:10 Report Date: 08/29/2023 11:25 At the request of: ANNELISE BAUMANN Procedure: XR chest 1V EXAMINATION: XR chest 1V HISTORY: ams COMPARISON: XR chest 07/16/2022 FINDINGS: LUNGS: Hyperexpanded lungs with trace amount of stranding and mild haziness within left lung base. VASCULATURE: No increased pulmonary vasculature. PLEURA: No pneumothorax, effusion, or pleural thickening. CARDIAC: Borderline cardiomegaly. MEDIASTINUM: Prior sternotomy. No abnormal widening. BONES: No fracture or visible bone lesion. OTHER: Negative. XR/XR chest 1V IMPRESSION: 1. Hyperexpanded lungs suggestive of COPD. 2. Trace amount of lingular infiltrates or atelectasis. Electronically authenticated by: JOSSIE WALKER Date: 08/29/2023 11:25
--- NOTE | 2023-08-29 10:58 | PC.NURSE ---
pt denies CP at this time
[2023-08-29 11:04] LABS: Hematocrit 31.3 % (42.0-54.0); Hemoglobin 10.7 g/dL (14.0-18.0); Mean Corpuscular HGB Conc 34.2 g/dL (29.9-35.2); Mean Corpuscular Hemoglobin 33.5 pg (25.9-34.0); Mean Corpuscular Volume 98.1 fL (80.0-94.0); Platelet Count 52 10^3/uL (150-450); Red Blood Count 3.19 10^6/uL (4.70-6.10); Red Cell Distribution Width 18.5 % (11.0-15.0); White Blood Count 3.7 10^3/uL (4.0-11.0)
[2023-08-29 11:19] LABS: INR 1.22; Prothrombin Time 12.7 sec (9.0-11.6)
[2023-08-29 11:24] LABS: Alanine Aminotransferase 36 U/L (16-63); Albumin Globulin Ratio 1.3; Alkaline Phosphatase 51 U/L (46-116); Anion Gap 12.4; Aspartate Amino Transferase 23 U/L (15-37); BUN Creatinine Ratio 22.2; Calcium 8.6 mg/dL (8.5-10.1); Carbon Dioxide 25.9 mmol/L (21.0-32.0); Chloride 92 mmol/L (98-107); Estimated GFR (African America >60 (>=60); Estimated GFR (Non-African Ame >60 (>=60); Glucose 93 mg/dL (74-106); Lactate/Lactic Acid 0.8 mmol/L (0.4-2.0); Potassium 4.3 mmol/L (3.5-5.1); Sodium 126 mmol/L (136-145); Troponin I High Sensitivity 6.8 pg/mL (4.0-76.1)
[2023-08-29 11:26] LABS: Magnesium 1.9 mg/dL (1.8-2.4)
[2023-08-29 11:40] LABS: Acanthocytes 1+; Anisocytosis 1+; Eosinophils Absolute Manual 0.03 10^3/uL (0.00-0.70); Lymphocytes Absolute Manual 1.03 10^3/uL (1.20-3.80); Monocytes Absolute Manual 0.33 10^3/uL (0.30-0.80); Ovalocytes 1+; Segmented Neut Absolute Manual 2.29 10^3/uL (1.4-6.5)
--- NOTE | 2023-08-29 11:54 | CT_ITS ---
The [address] [address] Patient Name: JOVANNY EVANS MRN: [id number] date: 1940 Sex: M Assigned Patient Location: ER Current Patient Location: ER Accession/Order Number: [id number] Exam Date: 08/29/2023 12:08 Report Date: 08/29/2023 12:38 At the request of: ANNELISE BAUMANN Procedure: CT head/brain wo con EXAM: CT head/brain wo con HISTORY: ams COMPARISON: CT head 07/16/2022. TECHNIQUE: Axial soft tissue and bone windows through the calvarium with coronal and sagittal reformats. CT dose reduction technique was used including Automated Exposure Control. Findings: The paranasal sinuses and mastoid air cells are well aerated. No air-fluid levels. No extra-axial fluid collection. No intra-axial or extra-axial bleed. No mass effect or midline shift. The sanchez-white matter differentiation is preserved. There are white matter low attenuation lesions which are nonspecific but commonly attributed to chronic small vessel ischemic disease. The brain parenchymal volume is reduced and there is stable ventricular dilatation. The basal cisterns are patent. The craniovertebral junction is unremarkable. CT/CT head/brain wo con IMPRESSION: 1. No acute intracranial abnormality. MRI is more sensitive for the evaluation of acute ischemia. 2. Senescent changes. Electronically authenticated by: JOVANNY MCKEON Date: 08/29/2023 12:38
[2023-08-29 12:07] LABS: Bilirubin Urine NEGATIVE (NEGATIVE); Blood Urine NEGATIVE (NEGATIVE); Clarity Urine CLEAR (CLEAR); Color Urine LT. YELLOW (YELLOW); Glucose Urine UA NEGATIVE (NEGATIVE); Ketones Urine NEGATIVE (NEGATIVE); Leukocyte Esterase Urine NEGATIVE (NEGATIVE); Nitrite Urine NEGATIVE (NEGATIVE); Protein Urine NEGATIVE (NEG/TRACE); Specific Gravity Urine 1.015 (1.005-1.025); Urobilinogen Urine 0.2 EU/dL (0.2-1.0); pH Urine 7.5 (5.0-9.0)
[2023-08-29 12:08] LABS: Urine Microscopic Indicated NO
--- NOTE | 2023-08-29 13:30 | PC.NURSE ---
pt able to stand and get in and out of w/c and into car. no change in mental status upon d/c.
--- NOTE | 2023-08-29 13:34 | ED.CHESTPAI1 ---
HPI - Chest Pain General Chief Complaint: Chest Pain Stated Complaint: CHEST PAIN/ BACK PAIN Time Seen by Provider: 08/29/23 10:46 Source: patient Mode of arrival: Wheelchair History of Present Illness HPI narrative: Patient is coming to the ER brought by his family members including the and the daughter, for concern of altered mental status, it seems that the main concern that they are not able to get him to sit in the chair or in the bed for the last few days as he is trying to stand up and walk and he is weak to walk, the patient himself is denying any complain, he is cooperative The and the daughter mentioned that the patient may be complained of pain over the last few days once although he does not have any pain at the moment, they mentioned that they spoke with the patient oncologist and he told him to come to the ER , Related Data Home Medications ?Medication ?Instructions ?Recorded ?Confirmed atorvastatin 80 mg tablet 80 mg PO QDAY 07/11/22 08/29/23 clopidogrel 75 mg tablet 75 mg PO QDAY 07/11/22 08/29/23 acetaminophen 325 mg tablet (Aphen) 650 mg PO Q6H PRN fever or pain 07/16/22 08/29/23 aspirin 81 mg tablet,delayed 81 mg PO DAILY 07/16/22 08/29/23 release (Adult Low Dose Aspirin) lidocaine 5 % topical patch See Rx Instructions topical 07/16/22 08/29/23 (Lidoderm) .COMPLEX multivitamin (Daily Multi-Vitamin 1 tab PO DAILY 07/16/22 08/29/23 tablet) metoprolol tartrate 25 mg tablet 25 mg PO BID 08/29/23 08/29/23 Allergies Allergy/AdvReac Type Severity Reaction Status Date / Time No Known Drug Allergies Allergy Verified 07/16/22 17:52 Review of Systems ROS Status of ROS 10 or more systems reviewed and unremarkable except as noted in history and below [facility] Medical History (Updated 08/29/23 @ 13:16 by Denise Riggs MD) Dementia ?F03.90 - Unspecified dementia, unspecified severity, without behavioral disturbance, psychotic disturbance, mood disturbance, and anxiety (ICD-10) HLD (hyperlipidemia) ?E78.5 - Hyperlipidemia, unspecified (ICD-10) CAD (coronary artery disease) ?I25.10 - Atherosclerotic heart disease of [place] coronary artery without angina pectoris (ICD-10) COVID-19 ?U07.1 - COVID-19 (ICD-10) Pneumonia ?J18.9 - Pneumonia, unspecified organism (ICD-10) AMS (altered mental status) ?R41.82 - Altered mental status, unspecified (ICD-10) Hyponatremia ?E87.1 - Hypo-osmolality and hyponatremia (ICD-10) Tuberculosis ?A15.9 - Respiratory tuberculosis unspecified (ICD-10) Hard of hearing ?H91.90 - Unspecified hearing loss, unspecified ear (ICD-10) Cardiac disease ?I51.9 - Heart disease, unspecified (ICD-10) Abrasion of elbow, left ?S50.312A - Abrasion of left elbow, initial encounter (ICD-10) C1 cervical fracture ?S12.000A - Unspecified displaced fracture of first cervical vertebra, initial encounter for closed fracture (ICD-10) Bursitis of left elbow ?M70.32 - Other bursitis of elbow, left elbow (ICD-10) Closed head injury ?S09.90XA - Unspecified injury of head, initial encounter (ICD-10) Hypertension ?I10 - Essential (primary) hypertension (ICD-10) Surgical History (Updated 07/17/22 @ 00:14 by Georgina Crook) History of back surgery ?Z98.890 - Other specified postprocedural states (ICD-10) Hx of CABG ?Z95.1 - Presence of aortocoronary bypass graft (ICD-10) H/O heart artery stent ?Z95.5 - Presence of coronary angioplasty implant and graft (ICD-10) Social History (Updated 07/17/22 @ 00:17 by Georgina Crook) Within the past year, how often did you have a drink containing alcohol: never Score interpretation: A score less than 4 is consistent with normal alcohol consumption. Smoking status: Never smoker Non-prescribed substance use: denies use Previous occupational history: retired Known occupational exposures/hazards: No Highest level of school completed/degree received: high school graduate Are you now , , , , never or living with a partner: don't know In a typical week, how many times do you talk on the telephone with family, friends, or neighbors: 3 or more times per week How often do you get together with friends or relatives: 3 or more times per week How often do you attend moravian or jehovah's witness services: 4 or more times per year Do you belong to any clubs or organizations such as moravian groups unions, fraternal or athletic groups, or school groups: no Total score: 2 Score interpretation: A score of greater than or equal to 2 indicates the lowest level of social isolation. Little interest or pleasure in doing things: not at all Feeling down, depressed, or hopeless: not at all Feel stressed/tense/nervous/anxious/difficulty sleeping: not at all Due to disability, difficulty making decisions: Yes Do you think of yourself as: straight/heterosexual Gender Identity: male Exam Narrative Exam Narrative: Nurses notes and vital signs reviewed and patient is not hypoxic. General: Well-appearing and in no apparent distress. Skin: Warm, dry, no pallor noted. No rash. Head: Normocephalic, atraumatic. Neck: Supple, non-tender. Eye: Pupils are equal, round and EOMI. No scleral icterus. Ears, Nose, Mouth, and Throat: TM are clear, no nasal mucosal hypertrophy. Oral mucosa is moist, no posterior oropharynx erythema, uvula is mid-line Cardiovascular: Regular Rate and Rhythm without murmur, gallop or rub. Respiratory: No accessory muscle use or respiratory distress. Lungs are clear to auscultation, no wheezing, rales or rhonchi Chest Wall: no tenderness Back: No midline thoracic or lumbar vertebral tenderness. No CVA tenderness Musculoskeletal: normal ROM, no calf or popliteal tenderness, no lower extremity edema/swelling GI: Abdomen is soft, non-distended. Normal bowel sounds. No masses appreciated. No tenderness to palpation. No rebound, guarding, or rigidity noted. Neurological: A&O x1. No cranial nerve dysfunction observed. No truncal ataxia. Moves all extremities. Sensation intact. Psychiatric: Cooperative and interactive.. Constitutional Vital Signs, click to edit/add: Last Vital Signs Temp 98.8 F 08/29/23 10:41 Pulse 60 08/29/23 12:59 Resp 20 08/29/23 12:59 BP 159/84 H 08/29/23 12:34 Pulse Ox 100 08/29/23 12:34 O2 Del Method Room Air 08/29/23 10:41 Course Vital Signs Vital signs: Vital Signs Temperature 98.8 F 08/29/23 10:41 Pulse Rate 66 08/29/23 10:41 Respiratory Rate 18 08/29/23 10:41 Blood Pressure 146/84 H 08/29/23 10:41 Pulse Oximetry 100 08/29/23 10:41 Oxygen Delivery Method Room Air 08/29/23 10:41 Temperature 98.8 F 08/29/23 10:41 Pulse Rate 60 08/29/23 12:59 Respiratory Rate 20 08/29/23 12:59 Blood Pressure 159/84 H 08/29/23 12:34 Pulse Oximetry 100 08/29/23 12:34 Oxygen Delivery Method Room Air 08/29/23 10:41 MDM - Chest Pain MDM Narrative Medical decision making narrative: The patient EKG showing sinus rhythm with a heart rate of [address] elevation or depression At the bedside the patient actually did not have any complaint he did not want to sit in the bed and he did not show any weakness When the family left to go to the cafeteria the patient was trying to leave and he had a good strength compared to his age The patient CBC and chemistry showing hyponatremia that was discussed with his primary care doctor and apparently has been having this for a while and right now restricting her fluids for 40 ounce a day and starting salt tablets will be done by his primary care as well as follow-up with outpatient CT head showed no acute pathology as well as a urinalysis CBC shows chronic thrombocytopenia as well as chronic anemia and chronic leukopenia The patient also had his case discussed with Dr. Durand the oncologist--patient have no official diagnosis of myelodysplastic syndrome yet he still having workup Right now the patient presentation does not seem to be secondary to acute complaint as it seems likely more of a home care, the patient had no chest pain or any difficulty breathing in the ER he also was not showing any weakness and the did admit that she is not able to control him staying in the bed or chair and he always want to walk around I did speak with the and explained to her that in case home care at the concern tests need to be discussed with the primary care doctor and they can come back to the ER for further evaluation of that problem, but right now they will follow-up with the primary care doctor as outpatient for further evaluation and they will come back to us in case of any concerns The patient is to follow up with primary care physician in next 2-3 days or to return to the emergency department should any of the signs or symptoms worsen or new symptoms develop. The patient agrees with the following Diagnosis and Treatment plan and the patient will be discharged home. The patient is to follow up with primary care physician in next 2-3 days or to return to the emergency department should any of the signs or symptoms worsen or new symptoms develop. The patient agrees with the following Diagnosis and Treatment plan and the patient will be discharged home. Lab Data Labs: Lab Results 08/29/23 08/29/23 Range/Units 10:54 11:48 WBC 3.7 L (4.0-11.0) 10^3/uL RBC 3.19 L (4.70-6.10) 10^6/uL Hgb 10.7 L (14.0-18.0) g/dL Hct 31.3 L (42.0-54.0) % MCV 98.1 H (80.0-94.0) fL MCH 33.5 (25.9-34.0) pg MCHC 34.2 (29.9-35.2) g/dL RDW 18.5 H (11.0-15.0) % Plt Count 52 L (150-450) 10^3/uL Seg Neuts % (Manual) 62.0 Lymphocytes % (Manual) 28.0 (20.5-60.0) % Monocytes % (Manual) 9.0 (1.7-12.0) % Eosinophils % (Manual) 1.0 (0.9-7.0) % Basophils % (Manual) 0.0 L (0.2-2.0) % Neutrophils # (Manual) 2.29 (1.4-6.5) 10^3/uL Lymphocytes # (Manual) 1.03 L (1.20-3.80) 10^3/uL Monocytes # (Manual) 0.33 (0.30-0.80) 10^3/uL Eosinophils # (Manual) 0.03 (0.00-0.70) 10^3/uL Basophils # (Manual) 0.00 (0.00-0.10) 10^3/uL Anisocytosis 1+ Ovalocytes 1+ Acanthocytes (Spur) 1+ PT 12.7 H (9.0-11.6) sec INR 1.22 D-Dimer 1.00 H* (<=0.59) mg/L FEU Sodium 126 L (136-145) mmol/L Potassium 4.3 (3.5-5.1) mmol/L Chloride 92 L (98-107) mmol/L Carbon Dioxide 25.9 (21.0-32.0) mmol/L Anion Gap 12.4 BUN 18.0 (7.0-18.0) mg/dL Creatinine 0.81 (0.70-1.30) mg/dL Est GFR ( Amer) >60 (>=60) Est GFR (Non-Af Amer) >60 (>=60) BUN/Creatinine Ratio 22.2 Glucose 93 (74-106) mg/dL Lactate 0.8 (0.4-2.0) mmol/L Calcium 8.6 (8.5-10.1) mg/dL Magnesium 1.9 (1.8-2.4) mg/dL Total Bilirubin 1.0 (0.2-1.0) mg/dL AST 23 (15-37) U/L ALT 36 (16-63) U/L Alkaline Phosphatase 51 (46-116) U/L Troponin I High Sens 6.8 (4.0-76.1) pg/mL Total Protein 7.0 (6.4-8.2) g/dL Albumin 4.0 (3.4-5.0) g/dL Globulin 3.0 g/dL Albumin/Globulin Ratio 1.3 Urine Color Lt. yellow (YELLOW) Urine Clarity Clear (CLEAR) Urine pH 7.5 (5.0-9.0) Ur Specific [place] 1.015 (1.005-1.025) Urine Protein Negative (NEG/TRACE) mg/dL Urine Glucose (UA) Negative (NEGATIVE) mg/dL Urine Ketones Negative (NEGATIVE) mg/dL Urine Occult Blood Negative (NEGATIVE) Urine Nitrite Negative (NEGATIVE) Urine Bilirubin Negative (NEGATIVE) Urine Urobilinogen 0.2 (0.2-1.0) EU/dL Ur Leukocyte Esterase Negative (NEGATIVE) Discharge Plan Discharge Stand Alone Forms: Portal Instructions Chief Complaint: Chest Pain Clinical Impression: Chronic hyponatremia Patient Disposition: Home, Self-Care Time of Disposition Decision: 13:15 Condition: Good Mode of Transportation: Private Vehicle Prescriptions / Home Meds: No Action atorvastatin 80 mg tablet 80 mg PO QDAY clopidogrel 75 mg tablet 75 mg PO QDAY lidocaine [Lidoderm] 5 % adhesive patch,medicated See Rx Instructions .ROUTE .COMPLEX Rx Instructions: leave on most painful area for up to 12 hrs aspirin [Adult Low Dose Aspirin] 81 mg tablet,delayed release (DR/EC) 81 mg PO DAILY multivitamin [Daily Multi-Vitamin] Tablet 1 tab PO DAILY acetaminophen [Aphen] 325 mg tablet 650 mg PO Q6H PRN (Reason: fever or pain) metoprolol tartrate 25 mg tablet 25 mg PO BID Print Language: Setswana Instructions: Hyponatremia (ED) Referrals: Jacobo Cat DO [Primary Care Provider] - 1 week Discharge Date/Time: 08/29/23 13:32
== END 2023-08-29 13:32 | disposition home or self-care (01) ==
PROVIDERS: Emergency Provider Emergency Medicine; PCP Internal Medicine
DX: E87.1 Hypo-osmolality and hyponatremia (principal); I25.10 Atherosclerotic heart disease of native coronary artery without angina pectoris
CPT/HCPCS: 36415; 70450; 71045; 80053; 81003; 83605; 83735; 84484; 85007; 85027; 85378; 85610; 93005; 99285

== ENCOUNTER 2023-08-30 11:11 | Outpatient (OUT) | payer MEDICARE, SELFPAY ==
[2023-08-30 11:36] LABS: Sodium Urine Random 59 mmol/L (30-90)
[2023-08-30 12:17] LABS: Uric Acid 3.9 mg/dL (3.5-7.2)
[2023-09-01 15:13] LABS: Osmolality, Urine 418 mOsmol/kg (.)
== END 2023-08-30 11:12 | disposition home or self-care (01) ==
LOC: LAB 11:13
PROVIDERS: PCP Internal Medicine; Visit Provider Internal Medicine
DX: E87.1 Hypo-osmolality and hyponatremia (principal)
CPT/HCPCS: 36415; 83930; 83935; 84300; 84550

== ENCOUNTER 2023-09-14 08:34 | Outpatient (RCR) | payer MEDICARE, SELFPAY | END 2023-10-07 23:59 | disposition home or self-care (01) | LOC: HEMC 08:34 | PROVIDERS: PCP Internal Medicine; Visit Provider Internal Medicine Hematology & Oncology | DX: D72.810 Lymphocytopenia (principal); D64.9 Anemia, unspecified; D69.6 Thrombocytopenia, unspecified; D72.819 Decreased white blood cell count, unspecified; Z86.16 Personal history of COVID-19; M54.9 Dorsalgia, unspecified; G89.29 Other chronic pain; I25.10 Atherosclerotic heart disease of native coronary artery without angina pectoris; Z79.02 Long term (current) use of antithrombotics/antiplatelets | CPT/HCPCS: G0463 ==

== ENCOUNTER 2023-09-22 07:04 | Outpatient (OUT) | payer MEDICARE, SELFPAY ==
[2023-09-22 08:29] LABS: Anion Gap 12.5; BUN Creatinine Ratio 20.7; Carbon Dioxide 27.8 mmol/L (21.0-32.0); Chloride 96 mmol/L (98-107); Estimated GFR (African America >60 (>=60); Estimated GFR (Non-African Ame >60 (>=60); Glucose 109 mg/dL (74-106); Potassium 4.3 mmol/L (3.5-5.1); Sodium 132 mmol/L (136-145)
== END 2023-09-22 07:05 | disposition home or self-care (01) ==
LOC: LAB 07:05
PROVIDERS: PCP Internal Medicine; Visit Provider Internal Medicine
DX: R53.83 Other fatigue (principal); E87.1 Hypo-osmolality and hyponatremia
CPT/HCPCS: 36415; 80048; 82533

== ENCOUNTER 2023-11-13 04:26 | Inpatient (IN) | payer MEDICARE, SELFPAY ==
[2023-11-13] VITALS (35 sets, daily range): BP systolic 123–174; BP diastolic 58–101; PULSE 53–78; TEMP 36.3–36.8; O2SAT 96–100; BMI 19.4
--- NOTE | 2023-11-13 04:46 | ED.GENADUL1 ---
HPI HPI - General Adult General Chief complaint: Extremity Problem, Nontraumatic Stated complaint: R SHOULDER PAIN CHEST PAIN Time Seen by Provider: 11/13/23 04:42 Source: patient Mode of arrival: Wheelchair Limitations: no limitations History of Present Illness HPI narrative: patient complaining of right shoulder pain since last evening. Grand daughter states when she first walked in his room he was clutching his chest. Past history of CAD with stent placement. He is only complaining of right shoulder pain at this time. No nausea or dyspnea. MD complaint: brought in to the ER by his grand daughter. Related Data Home Medications ?Medication ?Instructions ?Recorded ?Confirmed atorvastatin 80 mg tablet 80 mg PO QDAY 07/11/22 11/13/23 acetaminophen 325 mg tablet (Aphen) 650 mg PO Q6H PRN fever or pain 07/16/22 11/13/23 aspirin 81 mg tablet,delayed 81 mg PO DAILY 07/16/22 11/13/23 release (Adult Low Dose Aspirin) lidocaine 5 % topical patch See Rx Instructions topical 07/16/22 11/13/23 (Lidoderm) .COMPLEX multivitamin (Daily Multi-Vitamin 1 tab PO DAILY 07/16/22 11/13/23 tablet) metoprolol tartrate 25 mg tablet 25 mg PO BID 08/29/23 11/13/23 Previous Rx's ?Medication ?Instructions ?Recorded furosemide 20 mg tablet (Lasix) 20 mg PO DAILY #30 tabs 11/15/23 sodium chloride 1,000 mg soluble 1,000 mg PO Q8H #90 tabs 11/15/23 tablet Allergies Allergy/AdvReac Type Severity Reaction Status Date / Time No Known Drug Allergies Allergy Verified 11/13/23 04:35 Opioid HPI Opioid Management Most Recent Opioid Data: Last Pain Scale 0 11/15/23 10:09 11/15/23 Last Pain Assessment 11/15/23 10:09 Last ORT Total Score 3 11/13/23 08:42 11/13/23 Last ORT Risk Category Low Risk 11/13/23 08:42 11/13/23 Review of Systems ROS Status of ROS 10 or more systems reviewed and unremarkable except as noted in history and below [facility] PFS Medical History (Updated 11/19/23 @ 00:00 by ) Atrial fibrillation ?I48.91 - Unspecified atrial fibrillation (ICD-10) Chronic hyponatremia ?E87.1 - Hypo-osmolality and hyponatremia (ICD-10) Thrombocytopenia ?D69.6 - Thrombocytopenia, unspecified (ICD-10) Dementia ?F03.90 - Unspecified dementia, unspecified severity, without behavioral disturbance, psychotic disturbance, mood disturbance, and anxiety (ICD-10) HLD (hyperlipidemia) ?E78.5 - Hyperlipidemia, unspecified (ICD-10) CAD (coronary artery disease) ?I25.10 - Atherosclerotic heart disease of [place] coronary artery without angina pectoris (ICD-10) COVID-19 ?U07.1 - COVID-19 (ICD-10) Pneumonia ?J18.9 - Pneumonia, unspecified organism (ICD-10) AMS (altered mental status) ?R41.82 - Altered mental status, unspecified (ICD-10) Tuberculosis ?A15.9 - Respiratory tuberculosis unspecified (ICD-10) Hard of hearing ?H91.90 - Unspecified hearing loss, unspecified ear (ICD-10) Cardiac disease ?I51.9 - Heart disease, unspecified (ICD-10) Abrasion of elbow, left ?S50.312A - Abrasion of left elbow, initial encounter (ICD-10) C1 cervical fracture ?S12.000A - Unspecified displaced fracture of first cervical vertebra, initial encounter for closed fracture (ICD-10) Bursitis of left elbow ?M70.32 - Other bursitis of elbow, left elbow (ICD-10) Closed head injury ?S09.90XA - Unspecified injury of head, initial encounter (ICD-10) Hypertension ?I10 - Essential (primary) hypertension (ICD-10) Surgical History (Updated 07/17/22 @ 00:14 by Georgina Crook) History of back surgery ?Z98.890 - Other specified postprocedural states (ICD-10) Hx of CABG ?Z95.1 - Presence of aortocoronary bypass graft (ICD-10) H/O heart artery stent ?Z95.5 - Presence of coronary angioplasty implant and graft (ICD-10) Social History (Updated 07/17/22 @ 00:17 by Georgina Crook) Within the past year, how often did you have a drink containing alcohol: never Score interpretation: A score less than 4 is consistent with normal alcohol consumption. Smoking status: Never smoker Non-prescribed substance use: denies use Previous occupational history: retired Known occupational exposures/hazards: No Highest level of school completed/degree received: don't know Are you now , , , , never or living with a partner: don't know In a typical week, how many times do you talk on the telephone with family, friends, or neighbors: 3 or more times per week How often do you get together with friends or relatives: 3 or more times per week How often do you attend lutheran or confucianism services: 4 or more times per year Do you belong to any clubs or organizations such as lutheran groups unions, [employer] or athletic groups, or school groups: no Total score: 2 Score interpretation: A score of greater than or equal to 2 indicates the lowest level of social isolation. Little interest or pleasure in doing things: not at all Feeling down, depressed, or hopeless: not at all Feel stressed/tense/nervous/anxious/difficulty sleeping: not at all Due to disability, difficulty making decisions: Yes Do you think of yourself as: straight/heterosexual Gender Identity: male Exam Constitutional Vital Signs, click to edit/add: Last Vital Signs Temp 93.8 F L 11/15/23 08:13 Pulse 71 11/15/23 08:13 Resp 12 11/15/23 08:13 BP 99/63 11/15/23 08:13 Pulse Ox 95 11/15/23 08:13 O2 Del Method Room Air 11/15/23 08:13 Common normals: no apparent distress, average body habitus, oriented x3, no limitations (hard of hearing) and alert HENMT Common normals: normocephalic and head/scalp atraumatic Eye Common normals: PERRL and EOMs intact bilaterally Respiratory Common normals: normal respiratory effort, no retractions, no use of accessory muscles and clear to auscultation bilaterally Cardio Common normals: regular rate, regular rhythm, S1 normal heart sound and S2 normal heart sound GI Common normals: Normal to inspection, nondistended, normoactive bowel sounds present, soft to palpation and non-tender Extremity Common normals: normal to inspection and full ROM Other: no pain with ROM right shoulder Neuro Common normals: CN's II-XII intact bilaterally, moves all extremities and no focal motor deficits Sensorium/orientation: awake Psych Appearance: grossly normal Course Vital Signs Vital signs: Vital Signs Temperature 97.6 F 11/13/23 04:29 Pulse Rate 71 11/13/23 04:29 Respiratory Rate 18 11/13/23 04:29 Blood Pressure 162/82 H 11/13/23 04:29 Pulse Oximetry 100 11/13/23 04:29 Oxygen Delivery Method Room Air 11/13/23 04:29 Temperature 93.8 F L 11/15/23 08:13 Pulse Rate 71 11/15/23 08:13 Respiratory Rate 12 11/15/23 08:13 Blood Pressure 99/63 11/15/23 08:13 Pulse Oximetry 95 11/15/23 08:13 Oxygen Delivery Method Room Air 11/15/23 08:13 Medical Decision Making MDM Narrative Medical decision making narrative: patient has past history of CAD s/p stent placement and history of atrial fibrillation. He is not on ASA because of his thrombocytopenia and this may be the reason he is not on Eliquis or similar for his irregular heart beat. Presents with right shoulder pain. Grand daughter was concerned because he clutched his chest at home. i Given dose of NTG SL with resolution of his right shoulder pain. cxray with findings of mod. bilat pulmonary edema or multifocal pneumonia. CTA ordered due to elevated d-dimer. First troponin neg.EKG with A. fib without acute findings. labs also demonstrate hyponatremia which has been present in the past. results of CTA pending at this time discussed with Hospitalist Dr Zazueta. He will accept the patient . Will wait for CTA results before admitting the patient. If CTA finds PE will have oncoming physician update Dr Zazueta Lab Data Labs: Lab Results 11/13/23 11/13/23 Range/Units 05:00 06:30 WBC 3.3 L (4.0-11.0) 10^3/uL RBC 3.04 L (4.70-6.10) 10^6/uL Hgb 9.6 L (14.0-18.0) g/dL Hct 28.3 L (42.0-54.0) % MCV 93.1 (80.0-94.0) fL MCH 31.6 (25.9-34.0) pg MCHC 33.9 (29.9-35.2) g/dL RDW 21.0 H (11.0-15.0) % Plt Count 29 L* (150-450) 10^3/uL Seg Neuts % (Manual) 55.0 (43.0-75.0) Lymphocytes % (Manual) 30.0 (20.5-60.0) % Monocytes % (Manual) 14.0 H (1.7-12.0) % Eosinophils % (Manual) 1.0 (0.9-7.0) % Basophils % (Manual) 0.0 L (0.2-2.0) % Neutrophils # (Manual) 1.81 (1.4-6.5) 10^3/uL Lymphocytes # (Manual) 0.99 L (1.20-3.80) 10^3/uL Monocytes # (Manual) 0.46 (0.30-0.80) 10^3/uL Eosinophils # (Manual) 0.03 (0.00-0.70) 10^3/uL Basophils # (Manual) 0.00 (0.00-0.10) 10^3/uL Anisocytosis 2+ Fabiola Cells 2+ Acanthocytes (Spur) 1+ Schistocytes 1+ D-Dimer 1.13 H* (<=0.59) mg/L FEU Sodium 126 L (136-145) mmol/L Potassium 3.9 (3.5-5.1) mmol/L Chloride 94 L (98-107) mmol/L Carbon Dioxide 25.6 (21.0-32.0) mmol/L Anion Gap 10.3 BUN 15.0 (7.0-18.0) mg/dL Creatinine 0.94 (0.70-1.30) mg/dL Est GFR ( Amer) >60 (>=60 mL/min/1.73m^2) Est GFR (Non-Af Amer) >60 (>=60 mL/min/1.73m^2) BUN/Creatinine Ratio 16.0 Glucose 97 (74-106) mg/dL Calcium 8.8 (8.5-10.1) mg/dL Troponin I High Sens 5.7 (4.0-76.1) pg/mL SARS-CoV-2 Ag (CV2AG) Negative (NEGATIVE) Imaging Data Chest x-ray: Radiologist's impression: ITS Impressions Chest X-Ray 11/13/23 04:50 IMPRESSION: 1. Suspect moderate bilateral pulmonary edema versus multifocal pneumonia; new/increased compared to prior study. Electronically authenticated by: JOSSIE WALKER Date: 11/13/2023 05:49 Chest CTA 11/13/23 05:33 IMPRESSION: 1. No pulmonary embolism. 2. Mild ground glass opacities throughout the lungs; mild pulmonary edema versus atelectasis. Chronic interstitial changes, small bowel, chronic granulomatous disease. 3. Chronic changes of spine. No appreciable acute abnormality. Electronically authenticated by: JOSSIE WALKER Date: 11/13/2023 06:55 Discharge Plan Discharge Chief Complaint: Extremity Problem, Nontraumatic Clinical Impression: Chronic hyponatremia, Chest pain, Thrombocytopenia, Atrial fibrillation Patient Disposition: Admitted As Inpatient Discharge Date/Time: 11/13/23 08:25
--- NOTE | 2023-11-13 04:50 | XR_ITS ---
The [address] [address] Patient Name: JOVANNY EVANS MRN: [id number] date: 1940 Sex: M Assigned Patient Location: ER Current Patient Location: ER Accession/Order Number: [id number] Exam Date: 11/13/2023 05:15 Report Date: 11/13/2023 05:49 At the request of: GAMALIEL FANG Procedure: XR chest 1V EXAMINATION: XR chest 1V HISTORY: chest pain COMPARISON: XR chest 08/29/2023 FINDINGS: LUNGS: Increased mild opacities within right suprahilar region and right lung base. Mild haziness throughout left lung, slightly greater within lung bases. VASCULATURE: No increased pulmonary vasculature. PLEURA: No pneumothorax, effusion, or pleural thickening. CARDIAC: Borderline cardiomegaly. Prior sternotomy. MEDIASTINUM: No visible mass or adenopathy. BONES: No fracture or visible bone lesion. OTHER: Negative. XR/XR chest 1V IMPRESSION: 1. Suspect moderate bilateral pulmonary edema versus multifocal pneumonia; new/increased compared to prior study. Electronically authenticated by: JOSSIE WALKER Date: 11/13/2023 05:49
--- NOTE | 2023-11-13 04:50 | ECG_ITS ---
The [facility] Test Date: 2023-11-13 Pat Name: JOVANNY EVANS Department: Room: - Gender: Male Barrel Lapper: : 1940 Requested By: JERMAN QUINN Order Number: [id number] Reading MD: JERMAN QUINN Measurements Intervals [place] Rate: 66 P: -[id number] TN: -[id number] QRS: 96 QRSD: 90 T: 60 QT: 430 QTc: 444 Interpretive Statements 1210 Atrial fibrillation 7102 Moderate right axis deviation 9140 abnormal rhythm ECG Compared to ECG 08/29/2023 10:43:42 Right-axis deviation now present Atrial flutter no longer present Electronically Signed On 11-13-2023 6:17:43 EDT by JERMAN QUINN
[2023-11-13] MEDS: NITROGLYCERIN 0.4 MG BOTTLE PO (05:06)
[2023-11-13 05:12] LABS: Hematocrit 28.3 % (42.0-54.0); Hemoglobin 9.6 g/dL (14.0-18.0); Mean Corpuscular HGB Conc 33.9 g/dL (29.9-35.2); Mean Corpuscular Hemoglobin 31.6 pg (25.9-34.0); Mean Corpuscular Volume 93.1 fL (80.0-94.0); Red Blood Count 3.04 10^6/uL (4.70-6.10); White Blood Count 3.3 10^3/uL (4.0-11.0)
[2023-11-13 05:23] LABS: Anion Gap 10.3; Calcium 8.8 mg/dL (8.5-10.1); Carbon Dioxide 25.6 mmol/L (21.0-32.0); Chloride 94 mmol/L (98-107); Estimated GFR (African America >60 (>=60 mL/min/1.73m^2); Estimated GFR (Non-African Ame >60 (>=60 mL/min/1.73m^2); Glucose 97 mg/dL (74-106); Potassium 3.9 mmol/L (3.5-5.1); Sodium 126 mmol/L (136-145); Troponin I High Sensitivity 5.7 pg/mL (4.0-76.1)
[2023-11-13 05:33] LABS: Platelet Count 29 10^3/uL (150-450)
--- NOTE | 2023-11-13 05:33 | CT_ITS ---
[address] [address] Patient Name: JOVANNY EVANS MRN: [id number] date: 1940 Sex: M Assigned Patient Location: ER Current Patient Location: Accession/Order Number: [id number] Exam Date: 11/13/2023 06:00 Report Date: 11/13/2023 06:55 At the request of: GAMALIEL FANG Procedure: CT angio chest EXAMINATION: CT angio chest HISTORY: elevated ddimer ; acute right chest and shoulder pain COMPARISON: CT chest without contrast 08/31/2021 TECHNIQUE: Multi-planar CT images were created with IV contrast. Axial, Coronal, and Sagittal images. Dose reduction techniques were achieved by using automated exposure control and/or adjustment of mA and/or kV according to patient size and/or use of iterative reconstruction technique. 3-D reconstruction was performed on a separate workstation. FINDINGS: VASCULATURE: No pulmonary embolism or abnormal opacity. LUNGS: Stable 9 mm rounded opacity within anterior basilar segment of left lower lobe. Scattered calcified granulomas bilaterally. Scattered small bulla. Mild haziness/ground glass opacities throughout the lungs; pulmonary edema? PLEURA: No mass, effusion, or pneumothorax. ANDREW: Calcified lymph nodes compatible with chronic granulomatous disease. MEDIASTINUM: Calcified lymph nodes. CARDIAC: No enlargement, pericardial effusion, or pericardial thickening. AORTA: No aneurysm or dissection. CHEST WALL: No mass or axillary adenopathy. BONES: Marked kyphosis. Marked degenerative changes of lower cervical spine. Prior compression fracture vertebroplasty of L1. LIMITED ABDOMEN: No suspicious findings. Limited images of the upper abdomen. OTHER: Negative. CT/CT angio chest IMPRESSION: 1. No pulmonary embolism. 2. Mild ground glass opacities throughout the lungs; mild pulmonary edema versus atelectasis. Chronic interstitial changes, small bowel, chronic granulomatous disease. 3. Chronic changes of spine. No appreciable acute abnormality. Electronically authenticated by: JOSSIE WALKER Date: 11/13/2023 06:55
[2023-11-13 05:43] LABS: D Dimer 1.13 mg/L FEU (<=0.59)
[2023-11-13 05:52] LABS: Eosinophils Absolute Manual 0.03 10^3/uL (0.00-0.70); Lymphocytes Absolute Manual 0.99 10^3/uL (1.20-3.80); Monocytes Absolute Manual 0.46 10^3/uL (0.30-0.80); Segmented Neut Absolute Manual 1.81 10^3/uL (1.4-6.5)
[2023-11-13 05:53] LABS: Anisocytosis 2+
[2023-11-13 05:55] LABS: Acanthocytes 1+; Burr Cells 2+
[2023-11-13 05:56] LABS: Schistocytes 1+
[2023-11-13 07:00] LABS: Internal Control Within Normal Limits; SARS-CoV-2 Ag NEGATIVE (NEGATIVE)
--- NOTE | 2023-11-13 08:22 | CA_ITS ---
Patient Name: JOVANNY EVANS MR#: [id number] : 1940 Exam Date: 11/13/2023 Ordering Doctor: SHAIKH Cheko CARRION . ECHOCARDIOGRAM REPORT PROCEDURE: CA ECHO DOPPLER COMPLETE INDICATIONS: chf COMPARISON: None. DESCRIPTION: COMPLETE ECHOCARDIOGRAM Real-time transthoracic echocardiography with 2D, M-mode, spectral and color flow Doppler performed. QUALITY: Technical quality was good. LEFT VENTRICLE: Normal chamber size. Borderline left ventricular hypertrophy. Global left ventricular systolic function is normal. LV EF: Estimated left ventricular ejection fraction is 55-60%. DIASTOLIC: Not adequately assessed due to heart rhythm. ATRIAL SEPTUM: LEFT ATRIUM: Severe dilatation. RIGHT ATRIUM: Moderate dilatation. RIGHT VENTRICLE: Normal chamber size. Normal right ventricular systolic function. TRICUSPID VALVE: Normal mobility and thickness. No stenosis with mild to moderate regurgitation. Moderate pulmonary hypertension. RVSP 47 mmHg MITRAL VALVE: Normal mobility and thickness. No evidence of mitral valve stenosis. There is no mitral annular calcification. Mild mitral regurgitation. AORTIC VALVE: Normal trileaflet appearance. Mildly calcified aortic valve. Normal leaflet mobility. No evidence of aortic valve stenosis. Trivial aortic regurgitation. AORTIC ROOT: Normal diameter and appearance. PULMONIC VALVE: Normal thickness and mobility. No stenosis. Trivial regurgitation. PERICARDIUM: No evidence of pericardial effusion. IVC: Normal in size measuring 2.1 cm with no collapse. PLEURA: CONCLUSION: 1. Normal left ventricular size with normal systolic function. LVEF is 55 to 60%. 2. Normal right ventricular size and systolic function. 3. Moderate to severe biatrial dilatation. 4. Mild mitral regurgitation. 5. Mild to moderate tricuspid regurgitation. 6. Moderately elevated right-sided pressures. 7. No pericardial effusion. Adult Echocardiography Procedure Report Left Ventricle LVEDD (3.7 - 5.6 cm): 4.55 cm LVESD (2.2 - 4.0 cm): 3.26 cm LVIVS thickness (0.6 - 1.2 cm): 1.00 cm LVPW thickness (0.5 - 1.0 cm): 0.78 cm e': 0.12 m/s E - e': 8.13 LVOT Max Gradient: 2.15 mm[Hg] LVOT Area (cm2): 0.73 m/s Peak Velocity (LVOT): 0.73 m/s Mean Velocity (LVOT): 0.46 m/s LVOT Diameter 2.04 cm Left Ventricular Ejection Fraction: 55-60 % Left Atrium LA Volume Index (2D A2C): 64.23 ml/m2 Left Atrium Systolic Dimension: 4.80 cm Mitral Valve MV E to A Ratio: 2.57 Mitral Valve A-Wave Peak Velocity: 0.38 m/s Mitral Valve E-Wave Peak Velocity: 0.98 m/s Right Ventricle RV Internal Diastolic Dimension: 3.79 cm Aorta AO Root Diam: 3.52 cm Ascending Ao Diam: 3.17 cm Aortic Valve AoV Area ([place]): 2.01 cm2, 2.01 cm2 AoV Area (VTI): 1.99 cm2, 1.99 cm2 Peak Velocity(Antegrade Flow): 1.19 m/s Peak Gradient(Antegrade Flow): 5.70 mm[Hg] Mean Velocity(Antegrade Flow): 0.86 m/s Mean Gradient(Antegrade Flow): 3.32 mm[Hg] Velocity Time Integral: 31.47 cm Tricuspid Valve Peak Velocity (Regurgitant Flow): 2.76 m/s, 2.50 m/s, 3.79 m/s, 3.11 m/s Pulmonic Valve Mean Gradient: 2.54 mm[Hg] Mean Velocity: 0.75 m/s Peak Velocity: 1.02 m/s, 1.05 m/s Peak Gradient: 4.20 mm[Hg], 4.42 mm[Hg] Right Atrium Right Atrium Systolic Pressure: 57.18 ml, 57.18 ml Dictated by: Michael De La Cruz M.D. on 11/13/2023 at 17:31 Approved by: Michael De La Cruz M.D. on 11/13/2023 at 17:34
[2023-11-13 09:33] LABS: Troponin I High Sensitivity 6.2 pg/mL (4.0-76.1)
[2023-11-13] MEDS: ATORVASTATIN CALCIUM 40 MG TABLET 80 MG PO (10:07)
[2023-11-13] MEDS: FUROSEMIDE 40 MG/4 ML VIAL IVP (10:07)
[2023-11-13] MEDS: METOPROLOL TARTRATE 25 MG TABLET PO ×2 (10:07→20:51)
[2023-11-13] MEDS: MULTIVITAMIN TABLET 1 TAB PO (10:07)
--- NOTE | 2023-11-13 14:13 | P.HP_ITS ---
HPI H&P: HPI History of Present Illness Chief complaint: R SHOULDER PAIN CHEST PAIN, ANGINA Narrative: 83 y o male, very hard of hearing, with hx of dementia was brought over for right sided shoulder and chest pain. His symptoms resolved after he was given SL nitroglycerin. I was unable to get any information from him regarding his presenting illness or past hx due to dementia and his hearing. I called his daughter who is her emergency contact and left a message for her. At the time of my evaluation, he seems a little short of breath and is tachypneic. His work up in ED was concerning for acute on chronic diastolic HF, hyponatremia and he was admitted for further treatment and monitoring. He denies any pain at this time. Most of the information I was able to gather was from review of his chart. Opioid HPI Opioid Management Most Recent Pain and Opioid Data: Last Pain Scale 10 11/13/23 04:38 Last Pain Assessment 11/13/23 14:00 Last ORT Total Score 3 11/13/23 08:42 Last ORT Risk Category Low Risk 11/13/23 08:42 Review of Systems ROS Status of ROS 10 or more systems reviewed and unremark able except as noted in history and below [facility] Medical History (Updated 11/13/23 @ 14:15 by Shaikh Carlita MD) Thrombocytopenia ?D69.6 - Thrombocytopenia, unspecified (ICD-10) Dementia ?F03.90 - Unspecified dementia, unspecified severity, without behavioral disturbance, psychotic disturbance, mood disturbance, and anxiety (ICD-10) HLD (hyperlipidemia) ?E78.5 - Hyperlipidemia, unspecified (ICD-10) CAD (coronary artery disease) ?I25.10 - Atherosclerotic heart disease of [place] coronary artery without angina pectoris (ICD-10) COVID-19 ?U07.1 - COVID-19 (ICD-10) Pneumonia ?J18.9 - Pneumonia, unspecified organism (ICD-10) AMS (altered mental status) ?R41.82 - Altered mental status, unspecified (ICD-10) Tuberculosis ?A15.9 - Respiratory tuberculosis unspecified (ICD-10) Hard of hearing ?H91.90 - Unspecified hearing loss, unspecified ear (ICD-10) Cardiac disease ?I51.9 - Heart disease, unspecified (ICD-10) Abrasion of elbow, left ?S50.312A - Abrasion of left elbow, initial encounter (ICD-10) C1 cervical fracture ?S12.000A - Unspecified displaced fracture of first cervical vertebra, initial encounter for closed fracture (ICD-10) Bursitis of left elbow ?M70.32 - Other bursitis of elbow, left elbow (ICD-10) Closed head injury ?S09.90XA - Unspecified injury of head, initial encounter (ICD-10) Hypertension ?I10 - Essential (primary) hypertension (ICD-10) Surgical History (Updated 07/17/22 @ 00:14 by Georgina Crook) History of back surgery ?Z98.890 - Other specified postprocedural states (ICD-10) Hx of CABG ?Z95.1 - Presence of aortocoronary bypass graft (ICD-10) H/O heart artery stent ?Z95.5 - Presence of coronary angioplasty implant and graft (ICD-10) Social History (Updated 07/17/22 @ 00:17 by Georgina Crook) Within the past year, how often did you have a drink containing alcohol: never Score interpretation: A score less than 4 is consistent with normal alcohol consumption. Smoking status: Never smoker Non-prescribed substance use: denies use Previous occupational history: retired Known occupational exposures/hazards: No Highest level of school completed/degree received: don't know Are you now , , , , never or living with a partner: don't know In a typical week, how many times do you talk on the telephone with family, friends, or neighbors: 3 or more times per week How often do you get together with friends or relatives: 3 or more times per week How often do you attend baptism or pentecostal services: 4 or more times per year Do you belong to any clubs or organizations such as baptism groups unions, fraternal or athletic groups, or school groups: no Total score: 2 Score interpretation: A score of greater than or equal to 2 indicates the lowest level of social isolation. Little interest or pleasure in doing things: not at all Feeling down, depressed, or hopeless: not at all Feel stressed/tense/nervous/anxious/difficulty sleeping: not at all Due to disability, difficulty making decisions: Yes Do you think of yourself as: straight/heterosexual Gender Identity: male Meds Home Medications and Allergies Home Medications ?Medication ?Instructions ?Recorded ?Confirmed ?Type atorvastatin 80 mg tablet 80 mg PO QDAY 07/11/22 11/13/23 History clopidogrel 75 mg tablet 75 mg PO QDAY 07/11/22 11/13/23 History acetaminophen 325 mg tablet (Aphen) 650 mg PO Q6H PRN fever or pain 07/16/22 11/13/23 History aspirin 81 mg tablet,delayed 81 mg PO DAILY 07/16/22 11/13/23 History release (Adult Low Dose Aspirin) lidocaine 5 % topical patch See Rx Instructions topical 07/16/22 11/13/23 History (Lidoderm) .COMPLEX multivitamin (Daily Multi-Vitamin 1 tab PO DAILY 07/16/22 11/13/23 History tablet) metoprolol tartrate 25 mg tablet 25 mg PO BID 08/29/23 11/13/23 History Allergies Allergy/AdvReac Type Severity Reaction Status Date / Time No Known Drug Allergies Allergy Verified 11/13/23 04:35 Exam Constitutional Vital Signs, click to edit/add: Last Vital Signs Temp 98.2 F 11/13/23 12:00 Pulse 69 11/13/23 13:55 Resp 18 11/13/23 12:00 BP 146/68 H 11/13/23 12:00 Pulse Ox 99 11/13/23 12:00 O2 Del Method Room Air 11/13/23 12:00 Documenting provider has reviewed patient's vital signs: yes Common normals: no apparent distress General appearance: cooperative and frail appearing [facility] Common normals: normocephalic and head/scalp atraumatic Head and scalp: normocephalic and atraumatic Eye Common normals: conjunctivae normal and no scleral icterus Conjunctiva: conjunctiva(e) normal Respiratory Common normals: normal respiratory effort Effort & inspection: tachypneic Auscultation: rales bilateral at the base and diminished lung sounds Other: Appears SOB at rest. Cardio Common normals: regular rate, S1 normal heart sound and S2 normal heart sound Jugular venous distention: JVD to the level of the angle of the jaw Rate: regular rate Rhythm: abnormal rhythm Heart sounds: S1 normal and S2 normal GI Common normals: Normal to inspection, nondistended, normoactive bowel sounds present, soft to palpation, non-tender and no hepatosplenomegaly Palpation: soft and no hepatosplenomegaly Extremity Common normals: no clubbing, cyanosis or edema Neuro Common normals: moves all extremities and no focal motor deficits Sensorium/orientation: orientation impaired (to place. ) Gait (neuro): unable to assess gait Other: Confused, poor insight. Psych Common normals: cooperative, denies hallucinations, denies homicidal ideation and denies suicidal ideation Appearance: grossly normal Attitude: calm Results Labs Labs: Short CBC 11/13/23 Range/Units 05:00 WBC 3.3 L (4.0-11.0) 10^3/uL Hgb 9.6 L (14.0-18.0) g/dL Hct 28.3 L (42.0-54.0) % Plt Count 29 L* (150-450) 10^3/uL BMP 11/13/23 05:00 Sodium 126 L Potassium 3.9 Chloride 94 L Carbon Dioxide 25.6 BUN 15.0 Creatinine 0.94 Glucose 97 Calcium 8.8 Assessment and Plan Assessment and Plan (1) Chest pain: Assessment and Plan: No acute EKG changes. Trend troponin. ECHO ordered. Hold ASA, Plavix due to thrombocytopenia. Asymptomatic now. Qualifiers: Chest pain type: chest pain due to myocardial ischemia Ischemic chest pain type: stable angina pectoris Qualified Code(s): I20.89 - Other forms of angina pectoris (2) CAD (coronary artery disease): Assessment and Plan: Hx of CAD with prior PCI. I am not aware of his full Pmhx and I was unable to get any meaningful information from the patient. Waiting for patient's daughter to call back. Qualifiers: Coronary Disease-Associated Artery/Lesion type: [place] artery [place] vs. transplanted heart: [place] heart Associated angina: without angina Qualified Code(s): I25.10 - Atherosclerotic heart disease of [place] coronary artery without angina pectoris (3) Acute on chronic diastolic (congestive) heart failure: Assessment and Plan: Volume overload on exam, hyponatremia, appears SOB/tachypneic. Started on IV lasix 40 Q12, monitor I/O ,daily weight. ECHO pending. (4) Atrial fibrillation: Assessment and Plan: Rate controlled. In persistent Afib. Not on AC likely due to dementia, risk of bleeding. Qualifiers: Atrial fibrillation type: persistent (not longstanding) Qualified Code(s): I48.19 - Other persistent atrial fibrillation (5) Hyponatremia: Assessment and Plan: Prior hx of SIADH. Currently hyponatremia seems to be from volume overload. Started on IV lasix. Monitor serum sodium closely. Needs slow correction - 8-10 mEq/24 hours. (6) Dementia: Assessment and Plan: Appears to have advanced dementia. Its difficult to ascertain the severity in the absence of corroborating information from patients family. Monitor. Qualifiers: Dementia type: Alzheimer's Alzheimer's disease onset: late onset Dementia severity: moderate Dementia behavioral or psychological symptom: with anxiety Qualified Code(s): G30.1 - Alzheimer's disease with late onset; F02.B4 - Dementia in other diseases classified elsewhere, moderate, with anxiety (7) Thrombocytopenia: Assessment and Plan: Chronic, worse than usual. Hold ASA, plavix due to high risk of bleeding. (8) Hypertension: Assessment and Plan: Above goal. C/w home medications. IV hydralazine as neeeded. Qualifiers: Hypertension type: primary hypertension Qualified Code(s): I10 - Essential (primary) hypertension (9) HLD (hyperlipidemia): Assessment and Plan: C/w statin Qualifiers: Hyperlipidemia type: unspecified Qualified Code(s): E78.5 - Hyperlipidemia, unspecified Plan Admitted as inpatient because patient anticipated to require close inpatient admission for over 2 days. Patient will require close hemodynamic monitoring/neuro checks due to his hyponatremia resulting from acute on chronic diastolic HF. He will need close monitoring of renal function and serum electrolytes while being treated for CHF and hyponatremia to ensure we do not over correct and his serum sodium is gradually improved/treated.
[2023-11-13 14:40] LABS: Estimated Average Glucose 117 mg/dL; Glycohemoglobin A1C 5.7 % (4.5-6.2)
[2023-11-13 14:54] LABS: Chol HDL Ratio 1.6; Cholesterol 95 mg/dL (<=200); HDL Cholesterol 59 mg/dL (40-60); LDL Cholesterol Calculated 24.4 mg/dL; Triglycerides 58 mg/dL (<=150); Troponin I High Sensitivity 7.3 pg/mL (4.0-76.1); VLDL CHOLESTEROL 11.6 mg/dL
[2023-11-13] MEDS: ACETAMINOPHEN 325 MG TABLET 650 MG PO (20:51)
[2023-11-13 23:19] LABS: Anion Gap 11.7; BUN Creatinine Ratio 20.2; Calcium 8.8 mg/dL (8.5-10.1); Carbon Dioxide 26.4 mmol/L (21.0-32.0); Chloride 93 mmol/L (98-107); Estimated GFR (African America >60 (>=60 mL/min/1.73m^2); Estimated GFR (Non-African Ame >60 (>=60 mL/min/1.73m^2); Glucose 100 mg/dL (74-106); Potassium 4.1 mmol/L (3.5-5.1); Sodium 127 mmol/L (136-145)
[2023-11-14] VITALS (18 sets, daily range): BP systolic 118–144; BP diastolic 53–80; PULSE 56–71; TEMP 36.6–36.9; O2SAT 94–98
[2023-11-14] MEDS: FUROSEMIDE 40 MG/4 ML VIAL IVP ×2 (05:29→18:14)
[2023-11-14] MEDS: ACETAMINOPHEN 325 MG TABLET 650 MG PO ×2 (05:38→19:19)
[2023-11-14 05:54] LABS: Hematocrit 30.6 % (42.0-54.0); Hemoglobin 10.3 g/dL (14.0-18.0); Mean Corpuscular HGB Conc 33.7 g/dL (29.9-35.2); Mean Corpuscular Hemoglobin 31.2 pg (25.9-34.0); Mean Corpuscular Volume 92.7 fL (80.0-94.0); Platelet Count 33 10^3/uL (150-450); Red Cell Distribution Width 20.8 % (11.0-15.0); White Blood Count 3.5 10^3/uL (4.0-11.0)
[2023-11-14 06:02] LABS: Alanine Aminotransferase 24 U/L (16-63); Albumin Globulin Ratio 1.1; Albumin Level 3.7 g/dL (3.4-5.0); Alkaline Phosphatase 60 U/L (46-116); Anion Gap 14.2; Aspartate Amino Transferase 19 U/L (15-37); BUN Creatinine Ratio 17.8; Bilirubin Total 1.1 mg/dL (0.2-1.0); Calcium 9.1 mg/dL (8.5-10.1); Carbon Dioxide 25.9 mmol/L (21.0-32.0); Chloride 94 mmol/L (98-107); Estimated GFR (African America >60 (>=60 mL/min/1.73m^2); Estimated GFR (Non-African Ame >60 (>=60 mL/min/1.73m^2); Globulin 3.5 g/dL; Glucose 96 mg/dL (74-106); Potassium 4.1 mmol/L (3.5-5.1); Sodium 130 mmol/L (136-145); Total Protein 7.2 g/dL (6.4-8.2)
[2023-11-14 06:41] LABS: Eosinophils Absolute Manual 0.07 10^3/uL (0.00-0.70); Lymphocytes Absolute Manual 1.05 10^3/uL (1.20-3.80); Monocytes Absolute Manual 0.17 10^3/uL (0.30-0.80)
[2023-11-14 06:43] LABS: Acanthocytes 1+; Burr Cells 2+
[2023-11-14 06:44] LABS: Anisocytosis 2+; Schistocytes 1+
[2023-11-14] MEDS: MULTIVITAMIN TABLET 1 TAB PO (08:30)
[2023-11-14] MEDS: METOPROLOL TARTRATE 25 MG TABLET PO ×2 (08:30→20:01)
[2023-11-14] MEDS: ATORVASTATIN CALCIUM 40 MG TABLET 80 MG PO (08:30)
--- NOTE | 2023-11-14 09:00 | CM.NOTE ---
Rounds made with Dr. Zazueta, discussed with pt and daughter findings and treatment. No discharge for pt today. PT and OT will evaluate pt today for further discharge planning.
--- NOTE | 2023-11-14 09:49 | REH.PTDLY ---
Physical Therapy Daily Note PT Daily Note/Assess Start: 11/14/23 09:35 Freq: Status: Active Protocol: Document 11/14/23 09:35 INDRA (Rec: 11/14/23 09:47 INDRA [id number]) Physical Therapy Daily Note/Assessment Time In 09:10 Time Out 09:28 Subjective Daughter in room, states pt did not sleep well last night and is getting a little aggravated as he wants to go home. Pt states I want to walk out that door, I don't need to be here . Pt does agree to get up and walk when asked. Therapeutic Exercise Minutes (minutes) 6 Therapeutic Exercise Units 0 Therapeutic Exercise Treatment Instructed in seated exs 10x ea with Toby US. Pt struggles to understand ex due to dementia and being ILIAMNA. Counting out loud to 10 and tactile cues helps pt to continue with task at hand. Therapeutic Activity Minutes (minutes) 9 Therapeutic Activity Units 1 Bed Mobility Ability Independent Chair Transfer Ability Independent Therapeutic Activity Comments Pt Ind with transfers. Gait training with no AD Supervised /SBA for 225 feet with forward head posture. Daughter walks along side as well and states this is how pt ambulates at home. Pt is at baseline with ambulation Total Therapy Minutes 15 Total Physical Therapy Units 1 Daily Note Summary Progressed gait distance with no complaints of chest pain or pain anywhere else. Pt continues to state during rx, I want to get out of this hospital. Pt is ind with transfers and ambulates Supervised/SBA, which is baseline for pt daughter reports. Pt to be DC from PT at this time as goals met due to baseline status. Daughter reports pt should be going home tomorrow per Dr. mcgee today.
--- NOTE | 2023-11-14 10:20 | P.IMPN_ITS ---
Progress Note: A&P Assessment and Plan (1) Chest pain: Assessment and Plan: Trop x 3 negative. No acute changes on EKG. Remains CP free. No events on tele. Monitor. Qualifiers: Chest pain type: chest pain due to myocardial ischemia Ischemic chest pain type: stable angina pectoris Qualified Code(s): I20.89 - Other forms of angina pectoris (2) CAD (coronary artery disease): Assessment and Plan: No active CP, negative cardiac enzymes. Monitor. Qualifiers: Coronary Disease-Associated Artery/Lesion type: [place] artery [place] vs. transplanted heart: [place] heart Associated angina: without angina Qualified Code(s): I25.10 - Atherosclerotic heart disease of [place] coronary artery without angina pectoris (3) Acute on chronic diastolic (congestive) heart failure: Assessment and Plan: Volume overload on exam. C/w IV lasix. Good UO on lasix. Resp status improved also. Not SOB at rest. REED persists. (4) Atrial fibrillation: Assessment and Plan: Monitor. Rate controlled. Qualifiers: Atrial fibrillation type: persistent (not longstanding) Qualified Code(s): I48.19 - Other persistent atrial fibrillation (5) Hyponatremia: Assessment and Plan: Improving. Serum sodium is now 130. C/w IV lasix, fluid restrictions. (6) Dementia: Assessment and Plan: Advanced dementia with poor insight/confusion at baseline. Monitor. Qualifiers: Dementia type: Alzheimer's Alzheimer's disease onset: late onset Dementia severity: moderate Dementia behavioral or psychological symptom: with anxiety Qualified Code(s): G30.1 - Alzheimer's disease with late onset; F02.B4 - Dementia in other diseases classified elsewhere, moderate, with anxiety (7) Thrombocytopenia: Assessment and Plan: Chronic, unchanged. no active bleeding noted. (8) Hypertension: Assessment and Plan: C/w home medications. BP stable. Qualifiers: Hypertension type: primary hypertension Qualified Code(s): I10 - Essential (primary) hypertension (9) HLD (hyperlipidemia): Assessment and Plan: c/w lipitor. Qualifiers: Hyperlipidemia type: unspecified Qualified Code(s): E78.5 - Hyperlipidemia, unspecified Plan Persistent REED, requiring IV diuresis. Hyponatremia improving but serum sodium is still 130, from volume overload. Monitor serum sodium closely. Internal Medicine - PN: Subj Subjective Interval history: Seen and examined. No overnight events. Doing well. Diuresed well with lasix. Serum sodium slowly improving. Exam Constitutional Vital Signs, click to edit/add: Last Vital Signs Temp 97.8 F 11/14/23 07:30 Pulse 66 11/14/23 09:56 Resp 16 11/14/23 07:30 BP 118/59 11/14/23 07:30 Pulse Ox 97 11/14/23 07:30 O2 Del Method Room Air 11/14/23 07:30 Documenting provider has reviewed patient's vital signs: yes Common normals: no apparent distress General appearance: cooperative and frail appearing Respiratory Common normals: normal respiratory effort Auscultation: diminished lung sounds Cardio Common normals: regular rate, S1 normal heart sound and S2 normal heart sound Jugular venous distention: JVD to the level of the angle of the jaw Rate: regular rate Rhythm: abnormal rhythm Heart sounds: S1 normal and S2 normal Extremity Common normals: no clubbing, cyanosis or edema Neuro Common normals: moves all extremities and no focal motor deficits Sensorium/orientation: orientation impaired (to place. ) Gait (neuro): unable to assess gait Other: Confused, poor insight. Psych Common normals: cooperative, denies hallucinations, denies homicidal ideation and denies suicidal ideation Appearance: grossly normal Attitude: calm Internal Medicine - PN: Obj Da Labs Labs: Laboratory Results - last 24 hr 11/13/23 11/13/23 11/14/23 14:25 22:10 05:38 WBC 3.5 L RBC 3.30 L Hgb 10.3 L Hct 30.6 L MCV 92.7 MCH 31.2 MCHC 33.7 RDW 20.8 H Plt Count 33 L Seg Neuts % (Manual) 63.0 Lymphocytes % (Manual) 30.0 Monocytes % (Manual) 5.0 Eosinophils % (Manual) 2.0 Basophils % (Manual) 0.0 L Neutrophils # (Manual) 2.20 Lymphocytes # (Manual) 1.05 L Monocytes # (Manual) 0.17 L Eosinophils # (Manual) 0.07 Basophils # (Manual) 0.00 Anisocytosis 2+ [place] Cells 2+ Acanthocytes (Spur) 1+ Schistocytes 1+ Sodium 127 L 130 L Potassium 4.1 4.1 Chloride 93 L 94 L Carbon Dioxide 26.4 25.9 Anion Gap 11.7 14.2 BUN 17.0 16.0 Creatinine 0.84 0.90 Est GFR ( Amer) >60 >60 Est GFR (Non-Af Amer) >60 >60 BUN/Creatinine Ratio 20.2 17.8 Glucose 100 96 Estimat Average Glucose 117 Hemoglobin A1c 5.7 Calcium 8.8 9.1 Total Bilirubin 1.1 H AST 19 ALT 24 Alkaline Phosphatase 60 Troponin I High Sens 7.3 Total Protein 7.2 Albumin 3.7 Globulin 3.5 Albumin/Globulin Ratio 1.1 Triglycerides 58 Cholesterol 95 LDL Cholesterol, Calc 24.4 VLDL Cholesterol 11.6 HDL Cholesterol 59 Cholesterol/HDL Ratio 1.6
--- NOTE | 2023-11-14 11:23 | SWNOTE1 ---
SW spoke to case management and pt has family in the home 29/08. They rotate shifts staying with pt. Pt does not use any DME at home. No discharge needs at this time.
--- NOTE | 2023-11-14 11:24 | CM.NOTE ---
Important Message From Medicare discussed with pt's daughter, she verbalizes understanding and signs paper. Original given to daughter and copy placed on pt's chart. Daughter asking about if pt is diabetic, states when dietary brought in his tray they stated he was a diabetic and on diabetic diet. Discussed with pt's RN, pt is on 1800 cardiac diet and A1c is normal, explained this information to daughter. Clarified also pt is not on any oral agents for diabetes. Daughter appreciative of information.
[2023-11-15] VITALS (8 sets, daily range): BP systolic 99–109; BP diastolic 57–63; PULSE 53–79; TEMP 34.3–36.6; O2SAT 95–96
[2023-11-15] MEDS: FUROSEMIDE 40 MG/4 ML VIAL IVP (05:39)
[2023-11-15] MEDS: ONDANSETRON PF 4 MG/2 ML VIAL IV (05:51)
[2023-11-15] MEDS: MAALOX (MAG HYDROX/ALUMINUM HYD/SIMETH) 30 ML ORAL.SUSP PO (05:51)
[2023-11-15 06:13] LABS: Basophils Percent Auto 0.3 % (0.2-2.0); Hemoglobin 10.2 g/dL (14.0-18.0); Immature Granulocytes Abs Auto 0.02 10^3/uL (0.00-0.03); Immature Granulocytes Pct Auto 0.7 % (0.0-0.5); Lymphocytes Absolute Auto 0.9 10^3/uL (1.2-3.8); Mean Corpuscular Hemoglobin 31.2 pg (25.9-34.0); Mean Corpuscular Volume 91.7 fL (80.0-94.0); Monocytes Absolute Auto 0.3 10^3/uL (0.3-0.8); Monocytes Percent Auto 10.2 % (1.7-12.0); Neutrophils Absolute Auto 1.7 10^3/uL (1.4-6.5); Neutrophils Percent Auto 56.8 % (43.0-75.0); Platelet Count 39 10^3/uL (150-450)
[2023-11-15 06:31] LABS: Alanine Aminotransferase 25 U/L (16-63); Albumin Globulin Ratio 1.1; Albumin Level 3.7 g/dL (3.4-5.0); Alkaline Phosphatase 57 U/L (46-116); Anion Gap 13.2; Aspartate Amino Transferase 20 U/L (15-37); BUN Creatinine Ratio 22.9; Calcium 8.9 mg/dL (8.5-10.1); Carbon Dioxide 25.5 mmol/L (21.0-32.0); Chloride 94 mmol/L (98-107); Estimated GFR (African America >60 (>=60 mL/min/1.73m^2); Estimated GFR (Non-African Ame >60 (>=60 mL/min/1.73m^2); Globulin 3.3 g/dL; Glucose 86 mg/dL (74-106); Potassium 3.7 mmol/L (3.5-5.1); Sodium 129 mmol/L (136-145)
[2023-11-15 06:43] LABS: Red Cell Distribution Width 20.8 % (11.0-15.0)
[2023-11-15 06:46] LABS: Red Blood Count 3.27 10^6/uL (4.70-6.10)
[2023-11-15] MEDS: MULTIVITAMIN TABLET 1 TAB PO (08:32)
[2023-11-15] MEDS: ATORVASTATIN CALCIUM 40 MG TABLET 80 MG PO (08:32)
--- NOTE | 2023-11-15 09:21 | CM.NOTE ---
Rounds made with Dr. Zazueta, pt will discharge to home today. Pt will f/u with PCP in one week, no discharge needs identified.
--- NOTE | 2023-11-15 09:42 | P.DS_ITS ---
DS: Providers Provider Date of admission: 11/13/23 08:23 Primary care physician: Jacobo Cat DO Consults: 11/13/23 08:22 Occupational Therapy Eval and Treat Routine Reason for consultation: Ambulatory dysfunction/weakness Physical Therapy Eval and Treat Routine Reason for consultation: Ambulatory dysfunction/weakness DS: Diagnosis Discharge Diagnosis (1) Chest pain: Qualifiers: Chest pain type: chest pain due to myocardial ischemia Ischemic chest pain type: stable angina pectoris Qualified Code(s): I20.89 - Other forms of angina pectoris (2) CAD (coronary artery disease): Qualifiers: Coronary Disease-Associated Artery/Lesion type: [place] artery [place] vs. transplanted heart: [place] heart Associated angina: without angina Qualified Code(s): I25.10 - Atherosclerotic heart disease of [place] coronary artery without angina pectoris (3) Acute on chronic diastolic (congestive) heart failure: (4) Atrial fibrillation: Qualifiers: Atrial fibrillation type: persistent (not longstanding) Qualified Code(s): I48.19 - Other persistent atrial fibrillation (5) Hyponatremia: (6) Dementia: Qualifiers: Dementia type: Alzheimer's Alzheimer's disease onset: late onset Dementia severity: moderate Dementia behavioral or psychological symptom: with anxiety Qualified Code(s): G30.1 - Alzheimer's disease with late onset; F02.B4 - Dementia in other diseases classified elsewhere, moderate, with anxiety (7) Thrombocytopenia: (8) Hypertension: Qualifiers: Hypertension type: primary hypertension Qualified Code(s): I10 - Essential (primary) hypertension (9) HLD (hyperlipidemia): Qualifiers: Hyperlipidemia type: unspecified Qualified Code(s): E78.5 - Hyperlipidemia, unspecified DS: Summary Time Spent with Patient Time attestation: Total time spent providing and/or coordinating discharge services: Exam Constitutional Vital Signs, click to edit/add: Last Vital Signs Temp 93.8 F L 11/15/23 08:13 Pulse 71 11/15/23 08:13 Resp 12 11/15/23 08:13 BP 99/63 11/15/23 08:13 Pulse Ox 95 11/15/23 08:13 O2 Del Method Room Air 11/15/23 08:13 DS: Data Data Completed and Pending Labs on day of discharge: Labs from last 24 hours 11/15/23 05:40 WBC 3.0 L RBC 3.27 L Hgb 10.2 L Hct 30.0 L MCV 91.7 MCH 31.2 MCHC 34.0 RDW 20.8 H Plt Count 39 L Neut % (Auto) 56.8 Lymph % (Auto) 31.0 [place] % (Auto) 10.2 Eos % (Auto) 1.0 Baso % (Auto) 0.3 Neut # (Auto) 1.7 Lymph # (Auto) 0.9 L [place] # (Auto) 0.3 Eos # (Auto) 0.0 Baso # (Auto) 0.0 Abs Immat Gran (auto) 0.02 Imm/Tot Granulo (auto) 0.7 H Sodium 129 L Potassium 3.7 Chloride 94 L Carbon Dioxide 25.5 Anion Gap 13.2 BUN 22.0 H Creatinine 0.96 Est GFR ( Amer) >60 Est GFR (Non-Af Amer) >60 BUN/Creatinine Ratio 22.9 Glucose 86 Calcium 8.9 Total Bilirubin 1.0 AST 20 ALT 25 Alkaline Phosphatase 57 Total Protein 7.0 Albumin 3.7 Globulin 3.3 Albumin/Globulin Ratio 1.1 Discharge Plan Discharge Disposition: Home, Self-Care Discharge Medications: New sodium chloride 1,000 mg tablet,soluble 1,000 mg PO Q8H Qty: 90 0RF furosemide [Lasix] 20 mg tablet 20 mg PO DAILY Qty: 30 0RF Continued atorvastatin 80 mg tablet 80 mg PO QDAY lidocaine [Lidoderm] 5 % adhesive patch,medicated See Rx Instructions .ROUTE .COMPLEX Rx Instructions: leave on most painful area for up to 12 hrs aspirin [Adult Low Dose Aspirin] 81 mg tablet,delayed release (DR/EC) 81 mg PO DAILY multivitamin [Daily Multi-Vitamin] Tablet 1 tab PO DAILY acetaminophen [Aphen] 325 mg tablet 650 mg PO Q6H PRN (Reason: fever or pain) metoprolol tartrate 25 mg tablet 25 mg PO BID Discontinued clopidogrel 75 mg tablet 75 mg PO QDAY Activity: increase activity as tolerated Diet: advance to your usual diet Diet Detail: fluid restriction 1500 ml Print Language: Latvian Forms: Portal Instructions Follow Up Appointments: F/u with PCP in one week F.u with Cardiology in 2 weeks
--- NOTE | 2023-11-21 14:06 | CM.DCFOLLOWU ---
1st attempt 11/21/23, no answer
== END 2023-11-15 11:00 | disposition home or self-care (01) | DRG 291 ==
LOC: ER 08:39 → MS 08:40
PROVIDERS: Admitting Provider Internal Medicine; Emergency Provider Internal Medicine; PCP Internal Medicine; Visit Provider Internal Medicine
DX: I11.0 Hypertensive heart disease with heart failure (principal); I50.33 Acute on chronic diastolic (congestive) heart failure; E22.2 Syndrome of inappropriate secretion of antidiuretic hormone; I48.19 Other persistent atrial fibrillation; F02.B4 Dementia in other diseases classified elsewhere, moderate, with anxiety; G30.1 Alzheimer's disease with late onset; I25.118 Atherosclerotic heart disease of native coronary artery with other forms of angina pectoris; D69.6 Thrombocytopenia, unspecified; E78.5 Hyperlipidemia, unspecified; Z95.5 Presence of coronary angioplasty implant and graft; Z79.02 Long term (current) use of antithrombotics/antiplatelets; Z79.82 Long term (current) use of aspirin; Z79.899 Other long term (current) drug therapy
CPT/HCPCS: 36415; 71045; 71275; 80048; 80053; 80061; 83036; 84484; 85007; 85025; 85027; 85378; 87811; 93005; 93306; 94761; 97161; 97165; 97530; 99285; J1940; J2405; Q9967

== ENCOUNTER 2023-11-25 11:44 | Emergency (ER) | payer MEDICARE, SELFPAY ==
[2023-11-25] VITALS (15 sets, daily range): BP systolic 124–154; BP diastolic 55–67; PULSE 55–64; TEMP 36.4; O2SAT 97–100
--- NOTE | 2023-11-25 12:17 | XR_ITS ---
The [address] [address] Patient Name: JOVANNY EVANS MRN: [id number] date: 1940 Sex: M Assigned Patient Location: ER Current Patient Location: ED.MAIN Accession/Order Number: [id number] Exam Date: 11/25/2023 12:43 Report Date: 11/25/2023 14:16 At the request of: ANNELISE BAUMANN Procedure: XR chest 1V HISTORY: Neck pain and back pain for the past couple of days. No known injury. XR chest 1V: 11/25/2023 12:43 PM EDT COMPARISON: Portable AP chest 11/13/2023. FINDINGS: Median sternotomy wires are again seen. The heart again appears mildly enlarged. There is atherosclerotic ossification of the aortic arch. Mild elevation of the right hemidiaphragm is again seen. No focal consolidation, pleural effusion, pneumothorax or evidence of congestive heart failure is seen. There are multiple small calcified granulomas again seen within the lungs bilaterally. XR/XR chest 1V IMPRESSION: Mild cardiomegaly is again seen without evidence of active pulmonary disease. Electronically authenticated by: MAGI GÓMEZ Date: 11/25/2023 14:16
--- NOTE | 2023-11-25 12:17 | ECG_ITS ---
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
[2023-11-25 12:52] LABS: Basophils Percent Auto 0.6 % (0.2-2.0); Eosinophils Absolute Auto 0.1 10^3/uL (0.0-0.7); Eosinophils Percent Auto 1.7 % (0.9-7.0); Hematocrit 27.3 % (42.0-54.0); Immature Granulocytes Abs Auto 0.01 10^3/uL (0.00-0.03); Immature Granulocytes Pct Auto 0.3 % (0.0-0.5); Lymphocytes Absolute Auto 0.9 10^3/uL (1.2-3.8); Lymphocytes Percent Auto 25.6 % (20.5-60.0); Mean Corpuscular Hemoglobin 31.4 pg (25.9-34.0); Mean Corpuscular Volume 95.1 fL (80.0-94.0); Monocytes Absolute Auto 0.3 10^3/uL (0.3-0.8); Monocytes Percent Auto 8.4 % (1.7-12.0); Neutrophils Absolute Auto 2.3 10^3/uL (1.4-6.5); Neutrophils Percent Auto 63.4 % (43.0-75.0); Platelet Count 45 10^3/uL (150-450); Red Blood Count 2.87 10^6/uL (4.70-6.10); Red Cell Distribution Width 21.6 % (11.0-15.0); White Blood Count 3.6 10^3/uL (4.0-11.0)
[2023-11-25 13:08] LABS: Alanine Aminotransferase 29 U/L (16-63); Albumin Level 3.4 g/dL (3.4-5.0); Alkaline Phosphatase 63 U/L (46-116); Anion Gap 13.1; Aspartate Amino Transferase 22 U/L (15-37); BUN Creatinine Ratio 19.1; Bilirubin Total 0.7 mg/dL (0.2-1.0); Calcium 8.7 mg/dL (8.5-10.1); Carbon Dioxide 24.1 mmol/L (21.0-32.0); Chloride 99 mmol/L (98-107); Estimated GFR (African America >60 (>=60 mL/min/1.73m^2); Estimated GFR (Non-African Ame >60 (>=60 mL/min/1.73m^2); Globulin 3.4 g/dL; Glucose 139 mg/dL (74-106); Potassium 4.2 mmol/L (3.5-5.1); Sodium 132 mmol/L (136-145); Total Protein 6.8 g/dL (6.4-8.2); Troponin I High Sensitivity 6.1 pg/mL (4.0-76.1)
--- NOTE | 2023-11-25 13:21 | ED.GENADUL1 ---
HPI HPI - General Adult General Chief complaint: Back Pain/Injury Stated complaint: NECK/BACK PAIN Time Seen by Provider: 11/25/23 12:12 Source: patient and family Mode of arrival: Wheelchair Limitations: no limitations History of Present Illness HPI narrative: The patient 83-year-old male who lives with his grandson apparently complained of neck and back pain and he was given Tylenol before arrival, patient readily arrived to the ER with no pain in his neck or back Right now he is denying any complaint but according to daughter at the bedside she mentioned that he had some back pain before and he at that time was diagnosed with some chest pain and coronary artery disease complication Related Data Home Medications ?Medication ?Instructions ?Recorded ?Confirmed atorvastatin 80 mg tablet 80 mg PO QDAY 07/11/22 11/13/23 acetaminophen 325 mg tablet (Aphen) 650 mg PO Q6H PRN fever or pain 07/16/22 11/13/23 aspirin 81 mg tablet,delayed 81 mg PO DAILY 07/16/22 11/13/23 release (Adult Low Dose Aspirin) lidocaine 5 % topical patch See Rx Instructions topical 07/16/22 11/13/23 (Lidoderm) .COMPLEX multivitamin (Daily Multi-Vitamin 1 tab PO DAILY 07/16/22 11/13/23 tablet) metoprolol tartrate 25 mg tablet 25 mg PO BID 08/29/23 11/13/23 Previous Rx's ?Medication ?Instructions ?Recorded furosemide 20 mg tablet (Lasix) 20 mg PO DAILY #30 tabs 11/15/23 sodium chloride 1,000 mg soluble 1,000 mg PO Q8H #90 tabs 11/15/23 tablet Allergies Allergy/AdvReac Type Severity Reaction Status Date / Time No Known Drug Allergies Allergy Verified 11/25/23 12:01 Opioid HPI Opioid Management Most Recent Opioid Data: Last Pain Scale 0 11/15/23 10:09 11/15/23 Last ORT Total Score 3 11/13/23 08:42 11/13/23 Last ORT Risk Category Low Risk 11/13/23 08:42 11/13/23 Review of Systems ROS Status of ROS 10 or more systems reviewed and unremarkable except as noted in history and below [facility] Medical History (Updated 11/25/23 @ 13:28 by Denise Riggs MD) Atrial fibrillation ?I48.91 - Unspecified atrial fibrillation (ICD-10) Chronic hyponatremia ?E87.1 - Hypo-osmolality and hyponatremia (ICD-10) Thrombocytopenia ?D69.6 - Thrombocytopenia, unspecified (ICD-10) Dementia ?F03.90 - Unspecified dementia, unspecified severity, without behavioral disturbance, psychotic disturbance, mood disturbance, and anxiety (ICD-10) HLD (hyperlipidemia) ?E78.5 - Hyperlipidemia, unspecified (ICD-10) CAD (coronary artery disease) ?I25.10 - Atherosclerotic heart disease of [place] coronary artery without angina pectoris (ICD-10) COVID-19 ?U07.1 - COVID-19 (ICD-10) Pneumonia ?J18.9 - Pneumonia, unspecified organism (ICD-10) AMS (altered mental status) ?R41.82 - Altered mental status, unspecified (ICD-10) Tuberculosis ?A15.9 - Respiratory tuberculosis unspecified (ICD-10) Hard of hearing ?H91.90 - Unspecified hearing loss, unspecified ear (ICD-10) Cardiac disease ?I51.9 - Heart disease, unspecified (ICD-10) Abrasion of elbow, left ?S50.312A - Abrasion of left elbow, initial encounter (ICD-10) C1 cervical fracture ?S12.000A - Unspecified displaced fracture of first cervical vertebra, initial encounter for closed fracture (ICD-10) Bursitis of left elbow ?M70.32 - Other bursitis of elbow, left elbow (ICD-10) Closed head injury ?S09.90XA - Unspecified injury of head, initial encounter (ICD-10) Hypertension ?I10 - Essential (primary) hypertension (ICD-10) Surgical History (Updated 07/17/22 @ 00:14 by Georgina Crook) History of back surgery ?Z98.890 - Other specified postprocedural states (ICD-10) Hx of CABG ?Z95.1 - Presence of aortocoronary bypass graft (ICD-10) H/O heart artery stent ?Z95.5 - Presence of coronary angioplasty implant and graft (ICD-10) Social History (Updated 07/17/22 @ 00:17 by Georgina Crook) Within the past year, how often did you have a drink containing alcohol: never Score interpretation: A score less than 4 is consistent with normal alcohol consumption. Smoking status: Never smoker Non-prescribed substance use: denies use Previous occupational history: retired Known occupational exposures/hazards: No Highest level of school completed/degree received: don't know Are you now , , , , never or living with a partner: don't know In a typical week, how many times do you talk on the telephone with family, friends, or neighbors: 3 or more times per week How often do you get together with friends or relatives: 3 or more times per week How often do you attend orthodoxy or scientology services: 4 or more times per year Do you belong to any clubs or organizations such as orthodoxy groups unions, [facility] or athletic groups, or school groups: no Total score: 2 Score interpretation: A score of greater than or equal to 2 indicates the lowest level of social isolation. Little interest or pleasure in doing things: not at all Feeling down, depressed, or hopeless: not at all Feel stressed/tense/nervous/anxious/difficulty sleeping: not at all Due to disability, difficulty making decisions: Yes Do you think of yourself as: straight/heterosexual Gender Identity: male Exam Narrative Exam Narrative: Nurses notes and vital signs reviewed and patient is not hypoxic. General: Well-appearing and in no apparent distress. Skin: Warm, dry, no pallor noted. No rash. Head: Normocephalic, atraumatic. Neck: Supple, non-tender. Eye: Pupils are equal, round and EOMI. No scleral icterus. Ears, Nose, Mouth, and Throat: TM are clear, no nasal mucosal hypertrophy. Oral mucosa is moist, no posterior oropharynx erythema, uvula is mid-line Cardiovascular: Regular Rate and Rhythm without murmur, gallop or rub. Respiratory: No accessory muscle use or respiratory distress. Lungs are clear to auscultation, no wheezing, rales or rhonchi Chest Wall: no tenderness Back: No midline thoracic or lumbar vertebral tenderness. No CVA tenderness Musculoskeletal: normal ROM, no calf or popliteal tenderness, no lower extremity edema/swelling GI: Abdomen is soft, non-distended. Normal bowel sounds. No masses appreciated. No tenderness to palpation. No rebound, guarding, or rigidity noted. Neurological: A&O x1. No cranial nerve dysfunction observed. Constitutional Vital Signs, click to edit/add: Last Vital Signs Temp 97.6 F 11/25/23 11:58 Pulse 61 10/19/24 14:06 Resp 18 11/25/23 14:06 BP 124/55 11/25/23 13:12 Pulse Ox 97 11/25/23 14:06 O2 Del Method Room Air 11/25/23 11:58 Course Vital Signs Vital signs: Vital Signs Temperature 97.6 F 11/25/23 11:58 Pulse Rate 62 11/25/23 11:58 Respiratory Rate 16 11/25/23 11:58 Blood Pressure 154/67 H 11/25/23 11:58 Pulse Oximetry 100 11/25/23 11:58 Oxygen Delivery Method Room Air 11/25/23 11:58 Temperature 97.6 F 11/25/23 11:58 Pulse Rate 61 11/25/23 14:06 Respiratory Rate 18 11/25/23 14:06 Blood Pressure 124/55 11/25/23 13:12 Pulse Oximetry 97 11/25/23 14:06 Oxygen Delivery Method Room Air 11/25/23 11:58 Medical Decision Making MDM Narrative Medical decision making narrative: The patient EKG in the ER showing A-fib with a rate control of 55 CBC chemistry showed no acute pathology Chest x-ray showed no acute pathology and the patient had no complaint in the ER the patient daughter at the bedside had the workup explained to her and she was assured there is no acute problem at the moment he is to go back with Tylenol only for pain The patient is to follow up with primary care physician in next 2-3 days or to return to the emergency department should any of the signs or symptoms worsen or new symptoms develop. The patient agrees with the following Diagnosis and Treatment plan and the patient will be discharged home. Lab Data Labs: Lab Results 11/25/23 Range/Units 12:31 WBC 3.6 L (4.0-11.0) 10^3/uL RBC 2.87 L (4.70-6.10) 10^6/uL Hgb 9.0 L (14.0-18.0) g/dL Hct 27.3 L (42.0-54.0) % MCV 95.1 H (80.0-94.0) fL MCH 31.4 (25.9-34.0) pg MCHC 33.0 (29.9-35.2) g/dL RDW 21.6 H (11.0-15.0) % Plt Count 45 L (150-450) 10^3/uL Neut % (Auto) 63.4 (43.0-75.0) % Lymph % (Auto) 25.6 (20.5-60.0) % [place] % (Auto) 8.4 (1.7-12.0) % Eos % (Auto) 1.7 (0.9-7.0) % Baso % (Auto) 0.6 (0.2-2.0) % Neut # (Auto) 2.3 (1.4-6.5) 10^3/uL Lymph # (Auto) 0.9 L (1.2-3.8) 10^3/uL [place] # (Auto) 0.3 (0.3-0.8) 10^3/uL Eos # (Auto) 0.1 (0.0-0.7) 10^3/uL Baso # (Auto) 0.0 (0.0-0.1) 10^3/uL Abs Immat Gran (auto) 0.01 (0.00-0.03) 10^3/uL Imm/Tot Granulo (auto) 0.3 (0.0-0.5) % Sodium 132 L (136-145) mmol/L Potassium 4.2 (3.5-5.1) mmol/L Chloride 99 (98-107) mmol/L Carbon Dioxide 24.1 (21.0-32.0) mmol/L Anion Gap 13.1 BUN 18.0 (7.0-18.0) mg/dL Creatinine 0.94 (0.70-1.30) mg/dL Est GFR ( Amer) >60 (>=60 mL/min/1.73m^2) Est GFR (Non-Af Amer) >60 (>=60 mL/min/1.73m^2) BUN/Creatinine Ratio 19.1 Glucose 139 H (74-106) mg/dL Calcium 8.7 (8.5-10.1) mg/dL Total Bilirubin 0.7 (0.2-1.0) mg/dL AST 22 (15-37) U/L ALT 29 (16-63) U/L Alkaline Phosphatase 63 (46-116) U/L Troponin I High Sens 6.1 (4.0-76.1) pg/mL Total Protein 6.8 (6.4-8.2) g/dL Albumin 3.4 (3.4-5.0) g/dL Globulin 3.4 g/dL Albumin/Globulin Ratio 1.0 Discharge Plan Discharge Chief Complaint: Back Pain/Injury Clinical Impression: Back pain Patient Disposition: Home, Self-Care Time of Disposition Decision: 13:28 Condition: Good Prescriptions / Home Meds: No Action atorvastatin 80 mg tablet 80 mg PO QDAY lidocaine [Lidoderm] 5 % adhesive patch,medicated See Rx Instructions .ROUTE .COMPLEX Rx Instructions: leave on most painful area for up to 12 hrs aspirin [Adult Low Dose Aspirin] 81 mg tablet,delayed release (DR/EC) 81 mg PO DAILY multivitamin [Daily Multi-Vitamin] Tablet 1 tab PO DAILY acetaminophen [Aphen] 325 mg tablet 650 mg PO Q6H PRN (Reason: fever or pain) metoprolol tartrate 25 mg tablet 25 mg PO BID sodium chloride 1,000 mg tablet,soluble 1,000 mg PO Q8H Qty: 90 0RF furosemide [Lasix] 20 mg tablet 20 mg PO DAILY Qty: 30 0RF Print Language: Estonian Instructions: Back Pain (ED) Referrals: Jacobo Cat DO [Primary Care Provider] - 1 week
== END 2023-11-25 14:44 | disposition home or self-care (01) ==
PROVIDERS: Emergency Provider Emergency Medicine; PCP Internal Medicine
DX: M54.9 Dorsalgia, unspecified (principal); I25.10 Atherosclerotic heart disease of native coronary artery without angina pectoris
CPT/HCPCS: 36415; 71045; 80053; 84484; 85025; 93005; 99285

== ENCOUNTER 2024-03-06 19:51 | Emergency (ER) | payer MEDICARE, SELFPAY ==
[2024-03-06] VITALS (9 sets, daily range): BP systolic 114–135; BP diastolic 56–100; PULSE 76–88; TEMP 37.3; O2SAT 94–97
--- NOTE | 2024-03-06 20:18 | CT_ITS ---
The [address] [address] Patient Name: JOVANNY EVASN MRN: [id number] date: 1940 Sex: M Assigned Patient Location: ER Current Patient Location: Accession/Order Number: [id number] Exam Date: 03/06/2024 20:58 Report Date: 03/06/2024 22:50 At the request of: MENA HERRON Procedure: CT cervical spine wo con EXAM: CT head/brain wo con, CT cervical spine wo con INDICATION: 83 years old; Male. Closed head trauma status post fall. TECHNIQUE: CT Head (ax/cor/sag reformats). Ionizing radiation dose reduced via iterative reconstruction/FBP blend and body size kV/mA adjustment. Comparison: Head CT dated 08/29/2023. FINDINGS: POSTOPERATIVE CHANGES: None. BRAIN PARENCHYMA: No intraparenchymal or extra-axial hemorrhage. No mass effect. No midline shift or herniation. Subtle patchy low-density in the periventricular white matter. VENTRICLES/EXTRA-AXIAL SPACES: Ventricular system is enlarged out of proportion to the size the cortical sulci. The presence of a combination of atrophy +/- communicating hydrocephalus not excluded. SINUSES/MASTOIDS: Sinuses are clear. Mastoids and middle ears are clear. MSK: No displaced or depressed calvarial fracture. There is chronic appearing nasal bone deformity. Degenerative changes are present in the TMJ. OTHER: Vascular calcification in the anterior and posterior circulation. No hyperdense intraluminal thrombus. TECHNIQUE: CT imaging of the cervical spine was performed. IV contrast: None. Dose reduction techniques were achieved by using automated exposure control and/or adjustment of mA and/or kV according to patient size and/or use of iterative reconstruction technique. COMPARISON: Cervical CT dated 07/11/2022. FINDINGS: POSTOPERATIVE CHANGES: None. ALIGNMENT: Nonspecific straightening of the normal cervical curve. Grade 1 degenerative spondylolisthesis at C3-C4. COMPRESSION FRACTURES: Generalized bony demineralization. There is redemonstration of the fracture of the anterior arch of C1 which appears slightly widened as compared to the prior study. There is a new nondisplaced fracture of the posterior arch of C1. The seen image 14/series 3. There is chronic appearing height loss involving the superior endplates of T1, T2, and T3. These are unchanged as compared to the prior examination. There is ankylosis with solid trabeculated bony fusion at the C6-C7 level which is new as compared to the prior study. There is partial ankylosis of the posterior aspect of the disc space at C4-C5 which is new as compared to the prior study. There is lucency through an anterior osteophyte formation arising from the inferior margin of C7. This is unchanged from the prior study. No asymmetric widening of the facets is seen. No bony destruction is noted. PREVERTEBRAL SOFT TISSUES: Normal. CRANIOCERVICAL JUNCTION: Is a normal relationship of the occipital condyles, lateral masses of C1, and articular surfaces of C2. Cystic changes are present within the dens and body of C2 worse on the left than the right. This is unchanged as compared to the prior examination. There is narrowing of the predental space with [id number] appearance between a portion of the anterior arch of C1 and the tip of the dens. Osteophytes arise from the anterior arch of C1. POSTERIOR FOSSA: The cerebellar tonsils are above the foramen magnum. There is thickening and calcification of the transverse ligament which narrows the CSF space anterior to the cervicomedullary junction and upper cervical cord. This is unchanged as compared to the prior study. Disc levels: C2-C3: Disc space narrowing posteriorly. Facet degeneration. Central canal patent. Neural foramina patent. C3-C4: Facet degeneration with grade 1 degenerative spondylolisthesis. Severe neural foraminal stenosis present bilaterally. Central canal is patent. C4-C5: Progression of degeneration with posterior disc space ankylosis. There is disc space narrowing with vacuum disc degeneration bulky bridging anterior osteophytes. Broad-based central disc osteophyte complex. Mild central canal stenosis. Severe right and moderate to severe left-sided foraminal stenosis. C5-C6: Solid trabeculated fusion and ankylosis of the endplates is appreciated. This is progressed from the prior study. Posterior disc osteophyte complex. Mild central canal stenosis. Uncovertebral joint degeneration. Moderate bilateral foraminal stenosis. C6-C7: Active disc degeneration. Disc space narrowing posteriorly. Facet degeneration. Moderate bilateral foraminal stenosis. Lucency through an anterior osteophyte arising from the inferior margin of C7 unchanged from prior. C7-T1: The morning artifacts. Facet degeneration. Central canal patent. Neural foramina patent. UPPER THORACIC SPINE: At T1-T2, T2-T3, T3-T4, Beam hardening artifacts. Central canal and neural foramina patent. Anterior osteophytes. OTHER: No thyroid nodule or adenopathy. Vascular calcification. CT/CT cervical spine wo con IMPRESSION: 1. No acute intracranial abnormality. No hemorrhage or mass effect. 2. Nonspecific white matter changes. 3. Atrophy +/- communicating hydrocephalus. 4. Chronic appearing nasal bone deformity. No acute fracture. 5. New fracture of the posterior arch of C1 which is nondisplaced. Subtle increase in separation of the anterior arch C1 fracture. This fracture is present in the prior study. Normal relationship of the occipital condyles, lateral masses of C1, and articular surfaces of C2. 6. Multilevel cervical spondylosis. 7. Chronic deformity of the superior endplates of T1, T2, and T3 which are unchanged from the prior study. Lucency through an anterior osteophyte arising from the inferior margin of C7 unchanged from prior study. A telephone call regarding the findings in examination was made to and acknowledged by Dr. Amaya in the emergency department at 10:50 PM on 03/06/2024. Electronically authenticated by: DARYL MARQUEZ Date: 03/06/2024 22:50
--- NOTE | 2024-03-06 20:18 | CT_ITS ---
[address] [address] Patient Name: JOVANNY EVANS MRN: [id number] date: 1940 Sex: M Assigned Patient Location: ER Current Patient Location: Accession/Order Number: [id number] Exam Date: 03/06/2024 20:58 Report Date: 03/06/2024 22:50 At the request of: MENA HERRON Procedure: CT head/brain wo con EXAM: CT head/brain wo con, CT cervical spine wo con INDICATION: 83 years old; Male. Closed head trauma status post fall. TECHNIQUE: CT Head (ax/cor/sag reformats). Ionizing radiation dose reduced via iterative reconstruction/FBP blend and body size kV/mA adjustment. Comparison: Head CT dated 08/29/2023. FINDINGS: POSTOPERATIVE CHANGES: None. BRAIN PARENCHYMA: No intraparenchymal or extra-axial hemorrhage. No mass effect. No midline shift or herniation. Subtle patchy low-density in the periventricular white matter. VENTRICLES/EXTRA-AXIAL SPACES: Ventricular system is enlarged out of proportion to the size the cortical sulci. The presence of a combination of atrophy +/- communicating hydrocephalus not excluded. SINUSES/MASTOIDS: Sinuses are clear. Mastoids and middle ears are clear. MSK: No displaced or depressed calvarial fracture. There is chronic appearing nasal bone deformity. Degenerative changes are present in the TMJ. OTHER: Vascular calcification in the anterior and posterior circulation. No hyperdense intraluminal thrombus. TECHNIQUE: CT imaging of the cervical spine was performed. IV contrast: None. Dose reduction techniques were achieved by using automated exposure control and/or adjustment of mA and/or kV according to patient size and/or use of iterative reconstruction technique. COMPARISON: Cervical CT dated 07/11/2022. FINDINGS: POSTOPERATIVE CHANGES: None. ALIGNMENT: Nonspecific straightening of the normal cervical curve. Grade 1 degenerative spondylolisthesis at C3-C4. COMPRESSION FRACTURES: Generalized bony demineralization. There is redemonstration of the fracture of the anterior arch of C1 which appears slightly widened as compared to the prior study. There is a new nondisplaced fracture of the posterior arch of C1. The seen image 14/series 3. There is chronic appearing height loss involving the superior endplates of T1, T2, and T3. These are unchanged as compared to the prior examination. There is ankylosis with solid trabeculated bony fusion at the C6-C7 level which is new as compared to the prior study. There is partial ankylosis of the posterior aspect of the disc space at C4-C5 which is new as compared to the prior study. There is lucency through an anterior osteophyte formation arising from the inferior margin of C7. This is unchanged from the prior study. No asymmetric widening of the facets is seen. No bony destruction is noted. PREVERTEBRAL SOFT TISSUES: Normal. CRANIOCERVICAL JUNCTION: Is a normal relationship of the occipital condyles, lateral masses of C1, and articular surfaces of C2. Cystic changes are present within the dens and body of C2 worse on the left than the right. This is unchanged as compared to the prior examination. There is narrowing of the predental space with [id number] appearance between a portion of the anterior arch of C1 and the tip of the dens. Osteophytes arise from the anterior arch of C1. POSTERIOR FOSSA: The cerebellar tonsils are above the foramen magnum. There is thickening and calcification of the transverse ligament which narrows the CSF space anterior to the cervicomedullary junction and upper cervical cord. This is unchanged as compared to the prior study. Disc levels: C2-C3: Disc space narrowing posteriorly. Facet degeneration. Central canal patent. Neural foramina patent. C3-C4: Facet degeneration with grade 1 degenerative spondylolisthesis. Severe neural foraminal stenosis present bilaterally. Central canal is patent. C4-C5: Progression of degeneration with posterior disc space ankylosis. There is disc space narrowing with vacuum disc degeneration bulky bridging anterior osteophytes. Broad-based central disc osteophyte complex. Mild central canal stenosis. Severe right and moderate to severe left-sided foraminal stenosis. C5-C6: Solid trabeculated fusion and ankylosis of the endplates is appreciated. This is progressed from the prior study. Posterior disc osteophyte complex. Mild central canal stenosis. Uncovertebral joint degeneration. Moderate bilateral foraminal stenosis. C6-C7: Active disc degeneration. Disc space narrowing posteriorly. Facet degeneration. Moderate bilateral foraminal stenosis. Lucency through an anterior osteophyte arising from the inferior margin of C7 unchanged from prior. C7-T1: The morning artifacts. Facet degeneration. Central canal patent. Neural foramina patent. UPPER THORACIC SPINE: At T1-T2, T2-T3, T3-T4, Beam hardening artifacts. Central canal and neural foramina patent. Anterior osteophytes. OTHER: No thyroid nodule or adenopathy. Vascular calcification. CT/CT head/brain wo con IMPRESSION: 1. No acute intracranial abnormality. No hemorrhage or mass effect. 2. Nonspecific white matter changes. 3. Atrophy +/- communicating hydrocephalus. 4. Chronic appearing nasal bone deformity. No acute fracture. 5. New fracture of the posterior arch of C1 which is nondisplaced. Subtle increase in separation of the anterior arch C1 fracture. This fracture is present in the prior study. Normal relationship of the occipital condyles, lateral masses of C1, and articular surfaces of C2. 6. Multilevel cervical spondylosis. 7. Chronic deformity of the superior endplates of T1, T2, and T3 which are unchanged from the prior study. Lucency through an anterior osteophyte arising from the inferior margin of C7 unchanged from prior study. A telephone call regarding the findings in examination was made to and acknowledged by Dr. Amaya in the emergency department at 10:50 PM on 03/06/2024. Electronically authenticated by: DARYL MARQUEZ Date: 03/06/2024 22:50
--- NOTE | 2024-03-06 20:43 | ED_ITS ---
HPI HPI - General Adult General Chief complaint: Fall Stated complaint: FALL Time Seen by Provider: 03/06/24 20:36 Source: family Mode of arrival: walk-in History of Present Illness HPI narrative: 83-year-old male presents to the emergency department for a head injury. All the history is obtained from his granddaughter. The patient has dementia and is unable to give any history. He apparently fell tonight in his home around 630 and has a bruise on the left side of his scalp. No other apparent injury and he is acting normal for himself. Related Data Home Medications ?Medication ?Instructions ?Recorded ?Confirmed acetaminophen 325 mg tablet (Aphen) 650 mg PO Q6H PRN fever or pain 07/16/22 03/06/24 aspirin 81 mg tablet,delayed 81 mg PO DAILY 07/16/22 03/06/24 release (Adult Low Dose Aspirin) lidocaine 5 % topical patch See Rx Instructions topical 07/16/22 03/06/24 (Lidoderm) .COMPLEX metoprolol tartrate 25 mg tablet 25 mg PO BID 08/29/23 03/06/24 clopidogrel 75 mg tablet mg 03/06/24 diclofenac sodium 1 % topical gel topical 03/06/24 melatonin 5 mg tablet mg 03/06/24 olmesartan 5 mg tablet mg 03/06/24 Previous Rx's ?Medication ?Instructions ?Recorded furosemide 20 mg tablet (Lasix) 20 mg PO DAILY #30 tabs 11/15/23 Allergies Allergy/AdvReac Type Severity Reaction Status Date / Time No Known Drug Allergies Allergy Verified 03/06/24 20:11 Opioid HPI Opioid Management Most Recent Opioid Data: Last Pain Scale 0 11/15/23 10:09 11/15/23 Last ORT Total Score 3 11/13/23 08:42 11/13/23 Last ORT Risk Category Low Risk 11/13/23 08:42 11/13/23 Review of Systems ROS Narrative Not obtainable, dementia PFSH [facility] Medical History (Updated 03/06/24 @ 23:21 by Vernon Amaya MD) Atrial fibrillation ?I48.91 - Unspecified atrial fibrillation (ICD-10) Chronic hyponatremia ?E87.1 - Hypo-osmolality and hyponatremia (ICD-10) Thrombocytopenia ?D69.6 - Thrombocytopenia, unspecified (ICD-10) Dementia ?F03.90 - Unspecified dementia, unspecified severity, without behavioral disturbance, psychotic disturbance, mood disturbance, and anxiety (ICD-10) HLD (hyperlipidemia) ?E78.5 - Hyperlipidemia, unspecified (ICD-10) CAD (coronary artery disease) ?I25.10 - Atherosclerotic heart disease of [place] coronary artery without angina pectoris (ICD-10) COVID-19 ?U07.1 - COVID-19 (ICD-10) Pneumonia ?J18.9 - Pneumonia, unspecified organism (ICD-10) AMS (altered mental status) ?R41.82 - Altered mental status, unspecified (ICD-10) Tuberculosis ?A15.9 - Respiratory tuberculosis unspecified (ICD-10) Hard of hearing ?H91.90 - Unspecified hearing loss, unspecified ear (ICD-10) Cardiac disease ?I51.9 - Heart disease, unspecified (ICD-10) Abrasion of elbow, left ?S50.312A - Abrasion of left elbow, initial encounter (ICD-10) C1 cervical fracture ?S12.000A - Unspecified displaced fracture of first cervical vertebra, initial encounter for closed fracture (ICD-10) Bursitis of left elbow ?M70.32 - Other bursitis of elbow, left elbow (ICD-10) Closed head injury ?S09.90XA - Unspecified injury of head, initial encounter (ICD-10) Hypertension ?I10 - Essential (primary) hypertension (ICD-10) Surgical History (Updated 07/17/22 @ 00:14 by Georgina Crook) History of back surgery ?Z98.890 - Other specified postprocedural states (ICD-10) Hx of CABG ?Z95.1 - Presence of aortocoronary bypass graft (ICD-10) H/O heart artery stent ?Z95.5 - Presence of coronary angioplasty implant and graft (ICD-10) Social History (Updated 07/17/22 @ 00:17 by Georgina Crook) Within the past year, how often did you have a drink containing alcohol: never Score interpretation: A score less than 4 is consistent with normal alcohol consumption. Smoking status: Never smoker Non-prescribed substance use: denies use Previous occupational history: retired Known occupational exposures/hazards: No Highest level of school completed/degree received: don't know Are you now , , , , never or living with a partner: don't know In a typical week, how many times do you talk on the telephone with family, friends, or neighbors: 3 or more times per week How often do you get together with friends or relatives: 3 or more times per week How often do you attend rastafari or scientology services: 4 or more times per year Do you belong to any clubs or organizations such as rastafari groups unions, fraternal or athletic groups, or school groups: no Total score: 2 Score interpretation: A score of greater than or equal to 2 indicates the lowest level of social isolation. Little interest or pleasure in doing things: not at all Feeling down, depressed, or hopeless: not at all Feel stressed/tense/nervous/anxious/difficulty sleeping: not at all Due to disability, difficulty making decisions: Yes Do you think of yourself as: straight/heterosexual Gender Identity: male Exam Narrative Exam Narrative: Nurses note and vital signs reviewed and patient is not hypoxic. General: The patient appears well and in no apparent distress. Patient is resting comfortably on cart. Skin: Warm, dry, no pallor noted. There is no rash noted. Head: Normocephalic, he has bruising on the left side of his scalp. There is no laceration. The C-spine does not seem tender. Eye: Normal conjunctiva, no drainage Ears, Nose, Mouth, and Throat: oral mucosa is moist. Nares patent. Cardiovascular: Regular Rate and Rhythm Respiratory: Patient is in no distress, no accessory muscle use, lungs are clear to auscultation, no wheezing, rales or rhonchi Back: non-tender GI: Soft and nontender Musculoskeletal: No palpable tenderness to his extremities. He is moving all 4 extremities well. Neurological: Awake and alert. He can tell me his name but is not otherwise oriented. Psychiatric: Cooperative Constitutional Vital Signs, click to edit/add: Last Vital Signs Temp 99.1 F 03/06/24 19:56 Pulse 76 03/06/24 21:44 Resp 18 03/06/24 21:44 BP 116/90 03/06/24 21:44 Pulse Ox 95 03/06/24 21:44 O2 Del Method Room Air 03/06/24 19:56 Course Vital Signs Vital signs: Vital Signs Temperature 99.1 F 03/06/24 19:56 Pulse Rate 88 03/06/24 19:56 Respiratory Rate 20 03/06/24 19:56 Blood Pressure 114/86 03/06/24 19:56 Pulse Oximetry 94 L 03/06/24 19:56 Oxygen Delivery Method Room Air 03/06/24 19:56 Temperature 99.1 F 03/06/24 19:56 Pulse Rate 76 03/06/24 21:44 Respiratory Rate 18 03/06/24 21:44 Blood Pressure 116/90 03/06/24 21:44 Pulse Oximetry 95 03/06/24 21:44 Oxygen Delivery Method Room Air 03/06/24 19:56 Medical Decision Making MDM Narrative Medical decision making narrative: A new C1 fracture is identified, posterior arch and nondisplaced. Family is requesting transfer to [facility] and I have spoken to the neurosurgeon, trauma surgeon, and hospitalist there. He is excepted there and is stable for transfer and family is agreeable for transfer. He is placed in a c-collar, application checked by me and found to be appropriate, he is neurovascular intact. Treatment diagnosis and disposition were discussed thoroughly. Differential Diagnosis Differential Diagnosis: Contusion, cervical spine fracture, intracranial hemorrhage Imaging Data CT scan - head: Radiologist's impression: ITS Impressions Cervical Spine CT 03/06/24 20:18 IMPRESSION: 1. No acute intracranial abnormality. No hemorrhage or mass effect. 2. Nonspecific white matter changes. 3. Atrophy +/- communicating hydrocephalus. 4. Chronic appearing nasal bone deformity. No acute fracture. 5. New fracture of the posterior arch of C1 which is nondisplaced. Subtle increase in separation of the anterior arch C1 fracture. This fracture is present in the prior study. Normal relationship of the occipital condyles, lateral masses of C1, and articular surfaces of C2. 6. Multilevel cervical spondylosis. 7. Chronic deformity of the superior endplates of T1, T2, and T3 which are unchanged from the prior study. Lucency through an anterior osteophyte arising from the inferior margin of C7 unchanged from prior study. A telephone call regarding the findings in examination was made to and acknowledged by Dr. Amaya in the emergency department at 10:50 PM on 03/06/2024. Electronically authenticated by: DARYL MARQUEZ Date: 03/06/2024 22:[address] 03/06/24 20:18 IMPRESSION: 1. No acute intracranial abnormality. No hemorrhage or mass effect. 2. Nonspecific white matter changes. 3. Atrophy +/- communicating hydrocephalus. 4. Chronic appearing nasal bone deformity. No acute fracture. 5. New fracture of the posterior arch of C1 which is nondisplaced. Subtle increase in separation of the anterior arch C1 fracture. This fracture is present in the prior study. Normal relationship of the occipital condyles, lateral masses of C1, and articular surfaces of C2. 6. Multilevel cervical spondylosis. 7. Chronic deformity of the superior endplates of T1, T2, and T3 which are unchanged from the prior study. Lucency through an anterior osteophyte arising from the inferior margin of C7 unchanged from prior study. A telephone call regarding the findings in examination was made to and acknowledged by Dr. Amaya in the emergency department at 10:50 PM on 03/06/2024. Electronically authenticated by: DARYL MARQUEZ Date: 03/06/2024 22:50 ECG Data Attestation: I personally reviewed and interpreted this ECG as follows: (EKG on my interpretation shows atrial fibrillation with a rate of 75) Critical Care Time Critical Care Time Critical Care Time: Yes Total Critical Care Time: 35 Attestation: Due to the high probability of sudden and clinically significant deterioration in the patient's condition he/she required the highest level of my preparedness to intervene urgently I provided critical care time including documentation time, medication orders and management, reevaluation, vital sign assessment, ordering and reviewing of lab tests, ordering and reviewing of x-ray studies, and admission orders. Aggregate critical care time is 35 minutes including only time during which I was engaged in work directly related to his/her care and did not include time spent treating other patients simultaneously. Discharge Plan Discharge Chief Complaint: Fall Clinical Impression: C1 cervical fracture Patient Disposition: [facility] Time of Disposition Decision: 23:19 Discharge Location: [facility] Condition: Fair Mode of Transportation: EMS
--- NOTE | 2024-03-06 22:56 | PC.NURSE ---
Size medium Yanet collar applied.
--- NOTE | 2024-03-06 22:57 | ECG_ITS ---
[facility] Test Date: 2024-03-06 Pat Name: JOVANNY EVANS Department: Room: - Gender: Male End User Consultant: : 1940 Requested By: JERMAN QUINN Order Number: [id number] Reading MD: JERMAN QUINN Measurements Intervals [place] Rate: 75 P: -[id number] IA: -[id number] QRS: 81 QRSD: 90 T: 25 QT: 388 QTc: 417 Interpretive Statements 1210 Atrial fibrillation 9140 abnormal rhythm ECG Compared to ECG 11/25/2023 12:25:03 No significant changes Electronically Signed On 03-07-2024 7:02:19 EST by JERMAN QUINN
[2024-03-06 23:22] LABS: Hemoglobin 7.9 g/dL (14.0-18.0); Mean Corpuscular HGB Conc 34.5 g/dL (29.9-35.2); Mean Corpuscular Hemoglobin 29.8 pg (25.9-34.0); Mean Corpuscular Volume 86.4 fL (80.0-94.0); Platelet Count 44 10^3/uL (150-450); Red Blood Count 2.65 10^6/uL (4.70-6.10); Red Cell Distribution Width 25.7 % (11.0-15.0); White Blood Count 4.8 10^3/uL (4.0-11.0)
[2024-03-06 23:27] LABS: Anion Gap 10.6; BUN Creatinine Ratio 20.8; Calcium 8.6 mg/dL (8.5-10.1); Carbon Dioxide 24.2 mmol/L (21.0-32.0); Chloride 94 mmol/L (98-107); Estimated GFR (African America >60 (>=60 mL/min/1.73m^2); Estimated GFR (Non-African Ame >60 (>=60 mL/min/1.73m^2); Glucose 103 mg/dL (74-106); Potassium 4.8 mmol/L (3.5-5.1)
[2024-03-06 23:28] LABS: Hematocrit 22.9 % (42.0-54.0)
[2024-03-06 23:30] LABS: Sodium 124 mmol/L (136-145)
[2024-03-06 23:35] LABS: Band Neutrophils Absolute 0.1 10^3/uL (0.0-0.3); Segmented Neut Absolute Manual 3.31 10^3/uL (1.4-6.5)
[2024-03-06 23:36] LABS: Eosinophils Absolute Manual 0.04 10^3/uL (0.00-0.70); Lymphocytes Absolute Manual 0.96 10^3/uL (1.20-3.80); Monocytes Absolute Manual 0.33 10^3/uL (0.30-0.80)
[2024-03-06 23:40] LABS: Acanthocytes 2+; Anisocytosis 2+; Burr Cells 2+; Schistocytes 1+
[2024-03-07] VITALS (19 sets, daily range): BP systolic 114–134; BP diastolic 61–77; O2SAT 84–97
[2024-03-07] MEDS: LORAZEPAM 2 MG/ML VIAL 0.5 MG IV ×2 (01:00→02:36)
[2024-03-07] MEDS: MORPHINE SULFATE 2 MG/ML SYRINGE IV ×2 (01:04→03:01)
--- NOTE | 2024-03-07 03:18 | PC.NURSE ---
Pt medicated with ativan x 2 as documented. He has dementia and became anxious with the cc in place He did get some rest after the first dose of ativan, but then woke up again and was restless in bed while attempting to get OOB. The second dose was given and he fell asleep again only to awaken and begin thrashing about the bed again. Morphine 2 mg was again administered (pt did receive 2 doses). This was successful as he was much more calm and did not thrash about. EMS here to take pt to [facility]. Pt did well while being transferred from the bed onto the cot. C spine maintained.
== END 2024-03-07 03:27 | disposition short-term general hospital (02) ==
PROVIDERS: Emergency Provider Emergency Medicine; PCP Internal Medicine
DX: S12.001A Unspecified nondisplaced fracture of first cervical vertebra, initial encounter for closed fracture (principal); W19.XXXA Unspecified fall, initial encounter; M47.812 Spondylosis without myelopathy or radiculopathy, cervical region; F03.90 Unspecified dementia, unspecified severity, without behavioral disturbance, psychotic disturbance, mood disturbance, and anxiety; Z95.1 Presence of aortocoronary bypass graft; Z95.5 Presence of coronary angioplasty implant and graft
CPT/HCPCS: 36415; 70450; 72125; 80048; 85007; 85027; 93005; 96374; 96375; 96376; 99285; J2060; J2270